=== PATIENT | female | born 1950 | race American Indian/Alaskan Native ===

== ENCOUNTER 2019-07-08 14:57 | Emergency (ER) | payer SELFPAY ==
[2019-07-08 15:06] VITALS: BP 148/91
== END 2019-07-08 16:00 | disposition left against medical advice (07) ==
LOC: ED 14:57
DX: R51 Headache (principal); Z53.21 Procedure and treatment not carried out due to patient leaving prior to being seen by health care provider

== ENCOUNTER 2020-09-13 18:43 | Emergency (ER) | payer MEDICARE ==
--- NOTE | 2020-09-13 20:02 | Event Note ---
ED Screening Note Date of service: 09/13/20 Time: 20:00 ED Screening Note: 70-year-old female patient with history of hypertension and diabetes presents emergency department complaints of nontraumatic frontal headache with associated dizziness, nausea, and vomiting for 4 days. States she has been compliant with her blood pressure medications. She is not anticoagulated. Took Tylenol for the headache with limited relief. BP 227/121 in triage; already took BP meds today. General: Awake, appropriately interactive, no acute distress. Neck: Supple. Full range of motion intact. Cardiovascular: Normal peripheral perfusion. Pulmonary: No respiratory distress. Patient is speaking normally without use of accessory muscles. Skin: No apparent rashes or lesions. Neurological: No facial asymmetry. Speech is clear. Follows commands. Patient is alert and oriented. Strength and sensation intact throughout. Musculoskeletal: Moves all four extremities spontaneously with normal range of motion. Psych: Cooperative. Appropriate mood and affect. Patient is not a candidate for clinical rule out using [place] [facility] rule; CT head obtained for further evaluation. I have greeted and performed a focused rapid initial assessment of this patient. A comprehensive ED assessment and evaluation of the patient, analysis of all test results, and completion of the medical decision-making process will be conducted by additional ED providers. This initial assessment/diagnostic orders/clinical plan/treatment(s) is/are subject to change based on patients health status, clinical progression and re-assessment. Further treatment and workup at subsequent clinical provider's discretion. Patient/guardian urged not to elope from the ED as their condition may be serious if not clinically assessed and managed.
--- NOTE | 2020-09-13 20:34 | XRay Report ---
CHEST 2 VIEWS INDICATION / CLINICAL INFORMATION: dizziness/nausea. COMPARISON: None available. FINDINGS: SUPPORT DEVICES: None. HEART / MEDIASTINUM: No significant abnormality. LUNGS / PLEURA: Clear lungs. No significant pleural effusion. No pneumothorax. ADDITIONAL FINDINGS: No significant additional findings. IMPRESSION: 1. No acute abnormality of the chest. Signer Name: Amadou Costa MD Signed: 09/13/2020 8:29 PM Workstation Name: [id number]
[2020-09-13 20:39] LABS: Basophils % (Auto) 0.3 % (0.0-1.8); Eosinophils # (Auto) 0.1 K/mm3 (0.0-0.4); Eosinophils % (Auto) 0.7 % (0.0-4.3); Hematocrit 36.9 % (30.3-42.9); Hemoglobin 11.9 gm/dl (10.1-14.3); Lymphocytes # (Auto) 2.6 K/mm3 (1.2-5.4); Lymphocytes % (Auto) 19.3 % (13.4-35.0); Mean Corpuscular HGB Conc 32 % (30-34); Mean Corpuscular Volume 89 fl (79-97); Monocytes # (Auto) 0.8 K/mm3 (0.0-0.8); Platelet Count 308 K/mm3 (140-440); Red Blood Count 4.16 M/mm3 (3.65-5.03); Red Cell Distribution Width 15.4 % (13.2-15.2)
[2020-09-13 20:51] LABS: Alanine Aminotransferase 8 units/L (7-56); BUN/Creatinine Ratio 14; Blood Urea Nitrogen 27 mg/dL (7-17); Calcium 8.9 mg/dL (8.4-10.2); Hemolysis Index 18
--- NOTE | 2020-09-13 21:04 | Cat Scan Report ---
CT HEAD WITHOUT CONTRAST INDICATION : HTN; headache + nausea + dizziness. TECHNIQUE: Axial, coronal and sagittal CT imaging was performed from the skull apex through the skul l base without contrast. All CT scans at this location are performed using CT dose reduction for ALA RA by means of automated exposure control. COMPARISON: None available. FINDINGS: PARENCHYMA: No mass, midline shift, hemorrhage, extraaxial collection or acute territorial infarctio n. There is mild generalized atrophy. Probable chronic microvascular ischemic changes are seen along the periventricular white matter. VENTRICLES: Symmetric and normal in size. SOFT TISSUES: No significant abnormality of the included soft tissues/orbits. BONES: No acute osseous abnormality. SINUSES: No significant abnormality. ADDITIONAL FINDINGS: None. IMPRESSION: 1. No acute intracranial abnormality. 2. Additional findings as above. Signer Name: Amadou Costa MD Signed: 09/13/2020 9:00 PM Workstation Name: [id number]
[2020-09-13] MEDS ORDERED: cloNIDine 0.1 MG TAB PO ONE (21:21)
--- NOTE | 2020-09-13 21:25 | Emergency Department Report ---
ED General Adult HPI - General Chief complaint: High BP Stated complaint: HIGH BLOOD PRESSURE Time Seen by Provider: 09/13/20 21:16 Source: patient Mode of arrival: Ambulatory Limitations: No Limitations - History of Present Illness Initial comments: Patient is 70 years old female with history of hypertension and chronic kidney disease. Patient presented to the ER complaining of headache for the last 4 days, nausea and vomiting. Patient denied any chest pain, shortness of breath. Patient denied any focal weakness numbness or tingling sensation. No bowel or bladder incontinence. -: days(s) - Related Data Allergies Allergy/AdvReac Type Severity Reaction Status Date / Time No Known Allergies Allergy Unverified 07/08/19 15:01 ED Review of Systems ROS: Stated complaint: HIGH BLOOD PRESSURE Other details as noted in HPI Comment: All other systems reviewed and negative Constitutional: denies: chills, fever Respiratory: denies: cough, shortness of breath, SOB with exertion Cardiovascular: denies: chest pain, palpitations Gastrointestinal: nausea, vomiting. denies: abdominal pain, diarrhea, constipation, hematemesis, melena, hematochezia Musculoskeletal: denies: back pain Neurological: denies: headache, weakness, numbness, paresthesias, confusion, a bnormal gait ED Past Medical Hx - Past Medical History Previous Medical History?: Yes Hx Hypertension: Yes Hx Diabetes: Yes - Surgical History Past Surgical History?: Yes Additional Surgical History: Brenton hand , Right leg and right shoulder - Social History Smoking Status: Current Every Day Smoker Substance Use Type: None ED Physical Exam - General Limitations: No Limitations General appearance: alert, in no apparent distress - Head Head exam: Present: atraumatic, normocephalic, normal inspection - Eye Eye exam: Present: normal appearance, PERRL - ENT ENT exam: Present: normal exam, normal orophraynx, mucous membranes moist - Neck Neck exam: Present: normal inspection, full ROM. Absent: tenderness, m eningismus - Respiratory Respiratory exam: Present: normal lung sounds bilaterally - Cardiovascular Cardiovascular Exam: Present: regular rate, normal rhythm, normal heart sounds - GI/Abdominal GI/Abdominal exam: Present: soft, normal bowel sounds. Absent: distended, tenderness, guarding, rebound, rigid, organomegaly, mass, bruit, pulsatile mass, hernia - Extremities Exam Extremities exam: Present: normal inspection, full ROM, normal capillary refill. Absent: pedal edema, calf tenderness - Back Exam Back exam: Present: normal inspection, full ROM. Absent: CVA tenderness (R), CVA tenderness (L) - Neurological Exam Neurological exam: Present: alert, oriented X3, CN II-XII intact, normal gait, reflexes normal. Absent: motor sensory deficit - Psychiatric Psychiatric exam: Present: normal mood - Skin Skin exam: Present: warm, intact, normal color ED Course Vital Signs 09/13/20 09/13/20 09/13/20 19:55 21:22 21:30 Temperature 99.1 F Pulse Rate 86 71 73 Respiratory 20 15 14 Rate Blood Pressure 227/121 187/92 O2 Sat by Pulse 97 97 98 Oximetry 09/13/20 09/13/20 09/13/20 21:46 22:00 22:16 Temperature Pulse Rate 66 70 73 Respiratory 18 16 15 Rate Blood Pressure 183/89 183/89 149/78 O2 Sat by Pulse 97 97 95 Oximetry 09/13/20 09/13/20 09/13/20 22:30 22:46 23:00 Temperature Pulse Rate 76 70 62 Respiratory 14 15 15 Rate Blood Pressure 149/78 144/82 144/82 O2 Sat by Pulse 95 95 97 Oximetry 09/13/20 09/13/20 09/13/20 23:16 23:30 23:45 Temperature Pulse Rate 68 71 Respiratory 17 17 Rate Blood Pressure 161/85 171/90 166/86 O2 Sat by Pulse 97 97 Oximetry 09/13/20 09/14/20 09/14/20 23:46 00:00 00:04 Temperature Pulse Rate 70 74 70 Respiratory 19 15 17 Rate Blood Pressure 166/86 166/86 160/78 O2 Sat by Pulse 97 98 98 Oximetry 09/14/20 09/14/20 00:16 00:30 Temperature Pulse Rate 70 72 Respiratory 19 14 Rate Blood Pressure 144/82 166/86 O2 Sat by Pulse 97 96 Oximetry ED Medical Decision Making - Lab Data Result diagrams: 09/13/20 20:12 09/13/20 20:12 - EKG Data -: EKG Interpreted by Ms EKG shows normal: sinus rhythm Rate: normal - EKG Data Interpretation: no acute changes - Radiology Data Radiology results: report reviewed - Medical Decision Making Patient is 70 years old female with history of hypertension and chronic kidney disease. Patient presented to the ER complaining of headache for the last 4 days, nausea and vomiting. Patient denied any chest pain, shortness of breath. Patient denied any focal weakness numbness or tingling sensation. No bowel or bladder incontinence. Patient received clonidine for her significantly elevated blood pressure. Patient stated that her headache is significantly improved. Patient denied any neck stiffness or neck pain. patient also received Zofran for nausea. Labs reviewed and showed slight elevated white blood cells of 13. CT brain, chest x- ray and CT abdomen pelvis is unremarkable. Urinalysis -2. Patient advised to follow-up with her primary care physician in the next 2 to 3 days and to return to the ER she develop any new symptoms. Critical care attestation.: If time is entered above; I have spent that time in minutes in the direct care of this critically ill patient, excluding procedure time. ED Disposition Clinical Impression: Acute headache, Acute nausea with nonbilious vomiting, Malignant hypertension Disposition: DC-01 TO HOME OR SELFCARE Is pt being admited?: No Condition: Stable Instructions: Hypertension (ED), Nausea and Vomiting, Adult, Hypertension, Adult Referrals: EULALIO LORENZO MD [Primary Care Provider] - 3-5 Days
[2020-09-13] MEDS ORDERED: ONDANSETRON 4 MG ODT TAB PO ONE (21:27)
--- NOTE | 2020-09-14 00:04 | Cat Scan Report ---
CT ABDOMEN AND PELVIS WITHOUT IV CONTRAST INDICATION: ABDOMINAL PAIN. COMPARISON: None available. TECHNIQUE: All CT scans at this facility use dose modulation, automated exposure control, iterative reconstructi on or weight based dosing, when appropriate, to reduce radiation dose to as low as reasonably achieva ble. FINDINGS: Lung Bases: No significant abnormality. Skeletal System: No acute abnormality. ABDOMEN: Liver: No significant abnormality. Gallbladder: No significant abnormality. Bile Ducts: No significant abnormality. Pancreas: No significant abnormality. Spleen: No significant abnormality. Adrenals: No significant abnormality. Right Kidney: No significant abnormality. Left Kidney: No significant abnormality. Incidental lateral cortex cyst. Upper GI tract: No significant abnormality. Lymph Nodes: No significant adenopathy. Aorta: No significant abnormality. Additional Findings: No significant abnormality. PELVIS: Colon: No acute abnormality. Diverticulosis is noted. Urinary Bladder and Distal Ureters: No significant abnormality. Appendix: No significant abnormality. Lymph Nodes: No significant adenopathy. Additional Findings: None. IMPRESSION: 1. Within the limitations of non contrast technique, no acute process in the abdomen or pelvis. Signer Name: Henry Garcia MD Signed: 09/13/2020 11:59 PM Workstation Name: [id number]
[2020-09-14 00:12] LABS: Bilirubin,Urine NEG (Negative); Blood,Urine NEG (Negative); Color,Urine Yellow (Yellow); Urobilinogen,Urine < 2.0 mg/dL (<2.0)
[2020-09-14 01:50] VITALS: BP 137/82
== END 2020-09-14 01:23 | disposition home or self-care (01) ==
LOC: ED 18:43
DX: R51.9 Headache, unspecified (principal); R11.2 Nausea with vomiting, unspecified; I10 Essential (primary) hypertension; R10.9 Unspecified abdominal pain; E11.9 Type 2 diabetes mellitus without complications; F17.200 Nicotine dependence, unspecified, uncomplicated; Z98.890 Other specified postprocedural states
CPT/HCPCS: 36415; 70450; 71046; 74176; 80053; 81001; 83690; 83735; 84484; 85025; 93005; Q0162

== ENCOUNTER 2021-01-06 11:45 | Emergency (ER) | payer MEDICARE ==
--- NOTE | 2021-01-06 17:04 | Emergency Department Report ---
History of Present Illness - General Chief Complaint: Overdose Stated Complaint: POSS OVERDOSE Time Seen by Provider: 01/06/21 16:40 Source: patient Mode of arrival: Stretcher Limitations: No Limitations - History of Present Illness Initial Comments: 70-year-old female, history of diabetes, pretension, presents to ED for accidental overdose. Patient states she took all of her medications at around 10 AM. Patient states she forgot that she took her medications and took all of them again right afterward. Patient states she called EMS because she began to feel dizzy and lightheaded and nauseated. Triage nurse called poison control. States the only medication of concern is the glimepiride. Patient will need every hour Accu-Cheks. 12-hour observation from ingestion is warranted per poison control. Patient given a snack bag. Patient's medication list includes: Glimepiride, fluoxetine, gabapentin, amlodipine, acarbose, lisinopril, furosemide, trazodone, hydralazine, aspirin, quetiapine MD Complaint: accidental overdose -: hour(s) (7) Context: Accidental Overdose: medication error Associated Symptoms: dizziness, nausea/vomiting Treatments Prior to Arrival: none - Related Data Previous Rx's Medication Instructions Recorded Last Taken Type Ondansetron [Zofran Odt] 4 mg PO Q8HR PRN #14 tab.rapdis 09/14/20 Unknown Rx traMADoL [Ultram 50 MG tab] 50 mg PO Q4HR PRN #14 tablet 09/14/20 Unknown Rx Allergies Allergy/AdvReac Type Severity Reaction Status Date / Time No Known Allergies Allergy Unverified 07/08/19 15:01 ED Review of Systems ROS: Stated complaint: POSS OVERDOSE Other details as noted in HPI Comment: All other systems reviewed and negative Respiratory: denies: shortness of breath Gastrointestinal: nausea. denies: abdominal pain Neurological: vertigo ED Past Medical Hx - Past Medical History Previous Medical History?: Yes Hx Hypertension: Yes Hx Diabetes: Yes - Surgical History Additional Surgical History: Brenton hand , Right leg and right shoulder - Social History Smoking Status: Current Every Day Smoker Substance Use Type: None - Medications Home Medications: Home Medications Medication Instructions Recorded Confirmed Last Taken Type Ondansetron [Zofran Odt] 4 mg PO Q8HR PRN #14 tab.rapdis 09/14/20 Unknown Rx traMADoL [Ultram 50 MG tab] 50 mg PO Q4HR PRN #14 tablet 09/14/20 Unknown Rx ED Physical Exam - General Limitations: No Limitations General appearance: alert, in no apparent distress - Head Head exam: Present: atraumatic, normocephalic - Eye Eye exam: Present: normal appearance, PERRL, EOMI - ENT ENT exam: Present: mucous membranes moist - Neck Neck exam: Present: normal inspection - Respiratory Respiratory exam: Present: normal lung sounds bilaterally. Absent: respiratory distress - Cardiovascular Cardiovascular Exam: Present: regular rate, normal rhythm - GI/Abdominal GI/Abdominal exam: Present: soft. Absent: distended, tenderness - Extremities Exam Extremities exam: Present: normal inspection - Neurological Exam Neurological exam: Present: alert, oriented X3, CN II-XII intact. Absent: motor sensory deficit - Psychiatric Psychiatric exam: Present: normal affect, normal mood - Skin Skin exam: Present: warm, dry, intact, normal color ED Course Vital Signs 01/06/21 01/06/21 01/06/21 12:39 16:07 21:39 Temperature 98 F 97.9 F Pulse Rate 119 H 106 H 91 H Respiratory 18 16 18 Rate Blood Pressure 137/74 Blood Pressure 138/68 130/59 [Right] O2 Sat by Pulse 97 96 96 Oximetry ED Medical Decision Making - Medical Decision Making Patient presented to ED after accidentally taking her medications twice this morning. Patient reports she experienced some dizziness and nausea after work. Poison control was contacted. Patient has received every hour Accu-Cheks. Glucose has remained within normal limits. Patient was also given 1 L bolus of IV fluids. Vital signs have been stable. Patient is feeling much better and will be discharged at this time. Outpatient follow-up advised, return precautions given. - Differential Diagnosis Hyperglycemia, hypotension Critical care attestation.: If time is entered above; I have spent that time in minutes in the direct care of this critically ill patient, excluding procedure time. ED Disposition Clinical Impression: Accidental overdose Disposition: DC-01 TO HOME OR SELFCARE Is pt being admited?: No Condition: Stable Instructions: Accidental Drug Poisoning, Adult Referrals: PRIMARY CARE, [Primary Care Provider] - 3-5 Days Time of Disposition: 22:19
[2021-01-06] MEDS ORDERED: SODIUM CHLORIDE 0.9% 1000 ML 1,000 ML IV ONE (17:07)
[2021-01-06 22:14] VITALS: BP 137/74
== END 2021-01-06 21:47 | disposition home or self-care (01) ==
LOC: ED 11:45
DX: T50.991A Poisoning by other drugs, medicaments and biological substances, accidental (unintentional), initial encounter (principal); I10 Essential (primary) hypertension; E11.8 Type 2 diabetes mellitus with unspecified complications; Z98.890 Other specified postprocedural states; F17.200 Nicotine dependence, unspecified, uncomplicated; Y92.89 Other specified places as the place of occurrence of the external cause
CPT/HCPCS: 82962; 96360; 99284; J7030

== ENCOUNTER 2021-07-07 08:38 | Inpatient (IN) | payer MEDICARE ==
[2021-07-07] MEDS ORDERED: cloNIDine 0.2 MG TAB PO ONE (08:59)
--- NOTE | 2021-07-07 09:02 | Emergency Department Report ---
HPI - General Chief Complaint: Altered Mental Status Time Seen by Provider: 07/07/21 08:46 - HPI HPI: Room 5 Patient 71-year-old female present with a chief complaint of altered mental state. Per EMS family report the patient has been altered since yesterday. They report the patient is normally walkie-talkie but patient is currently nonverbal. Is believed the patient fell out of bed today and was found by family and subsequently 911 was called. EMS arrived to find the patient nonverbal. Patient makes eye contact but does not answer questions. ED Past Medical Hx - Past Medical History Hx Hypertension: Yes Hx Diabetes: Yes Hx Renal Disease: Yes (Chronic renal insufficiency) Hx Psychiatric Treatment: Yes (Anxiety, depression) - Surgical History Past Surgical History?: No Additional Surgical History: Brenton hand , Right leg and right shoulder - Family History Family history: no significant - Social History Smoking Status: Unknown if ever smoked Substance Use Type: None - Medications Home Medications: Home Medications Medication Instructions Recorded Confirmed Last Taken Type Ondansetron [Zofran Odt] 4 mg PO Q8HR PRN #14 tab.rapdis 09/14/20 Unknown Rx traMADoL [Ultram 50 MG tab] 50 mg PO Q4HR PRN #14 tablet 09/14/20 Unknown Rx ED Review of Systems ROS: Stated complaint: ALTERED MENTAL STATUS Other details as noted in HPI Comment: Unobtainable due to pts medical conditions Physical Exam - Physical Exam Vital Signs: Vital Signs 07/07/21 08:40 Temperature 95 F L Pulse Rate 89 Respiratory 16 Rate Blood Pressure 193/116 [Right] O2 Sat by Pulse 97 Oximetry Physical Exam: GENERAL: The patient is well-developed well-nourished female lying on stretcher not appearing to be in acute distress. [] HEENT: Normocephalic. Atraumatic. Extraocular motions are intact. Patient has moist mucous membranes. NECK: Supple. Trachea midline CHEST/LUNGS: Clear to auscultation. There is no respiratory distress noted. HEART/CARDIOVASCULAR: Regular. There is no tachycardia. There is no gallop rub or murmur. ABDOMEN: Abdomen is soft, nontender. Patient has normal bowel sounds. There is no abdominal distention. SKIN: There is no rash. There is no edema. There is no diaphoresis. NEURO: The patient is awake, alert and makes eye contact but does not answer questions. Patient moves all 4 extremities well. The patient is not cooperative with neurologic exam. MUSCULOSKELETAL: There is no evidence of acute injury. ED Course Vital Signs 07/07/21 08:40 Temperature 95 F L Pulse Rate 89 Respiratory 16 Rate Blood Pressure 193/116 [Right] O2 Sat by Pulse 97 Oximetry ED Medical Decision Making - Lab Data Result diagrams: 07/07/21 09:03 07/07/21 09:03 Laboratory Tests 07/07/21 07/07/21 07/07/21 09:03 09:03 09:03 WBC 14.0 H RBC 4.48 Hgb 12.3 Hct 39.3 MCV 88 MCH 27 L MCHC 31 RDW 15.5 H Plt Count 334 Lymph % (Auto) 10.9 L [place] % (Auto) 6.7 Eos % (Auto) 0.3 Baso % (Auto) 0.1 Lymph # (Auto) 1.5 [place] # (Auto) 0.9 H Eos # (Auto) 0.0 Baso # (Auto) 0.0 Seg Neutrophils % 82.0 H Seg Neutrophils # 11.4 H VBG pH Sodium 139 Potassium 4.8 Chloride 104.7 Carbon Dioxide 13 L Anion Gap 26 BUN 36 H Creatinine 3.0 H Estimated GFR 19 BUN/Creatinine Ratio 12 Glucose 258 H Calcium 9.5 Total Bilirubin < 0.20 AST 10 ALT 7 Alkaline Phosphatase 78 Ammonia 22.0 L Total Creatine Kinase 100 CK-MB (CK-2) 2.9 CK-MB (CK-2) Rel Index 2.9 Troponin T < 0.010 Total Protein 7.4 Albumin 3.9 Albumin/Globulin Ratio 1.1 TSH Free T4 Plasma/Serum Alcohol 07/07/21 07/07/21 07/07/21 09:03 09:03 09:03 WBC RBC Hgb Hct MCV MCH MCHC RDW Plt Count Lymph % (Auto) [place] % (Auto) Eos % (Auto) Baso % (Auto) Lymph # (Auto) [place] # (Auto) Eos # (Auto) Baso # (Auto) Seg Neutrophils % Seg Neutrophils # VBG pH 7.276 L Sodium Potassium Chloride Carbon Dioxide Anion Gap BUN Creatinine Estimated GFR BUN/Creatinine Ratio Glucose Calcium Total Bilirubin AST ALT Alkaline Phosphatase Ammonia Total Creatine Kinase CK-MB (CK-2) CK-MB (CK-2) Rel Index Troponin T Total Protein Albumin Albumin/Globulin Ratio TSH 1.880 Free T4 1.31 Plasma/Serum Alcohol < 0.01 - EKG Data -: EKG Interpreted by Me EKG shows normal: sinus rhythm Rate: normal - EKG Data When compared to previous EKG there are: previous EKG unavailable Interpretation: nonspecific ST-T wave berry - Radiology Data Radiology results: report reviewed (CT head), image reviewed (CT head) [facility] [address] [place] [address] Cat Scan Report Signed Patient: JAZMÍN SEO MR#: [id number] : 1950 Acct:[id number] Age/Sex: 71 / F ADM Date: 07/07/21 Loc: ED Att ending Dr: Ordering Physician: FLORI GUTIERREZ MD Date of Service: 07/07/21 Procedure(s): CT head/brain wo con Accession Number(s): [id number] cc: FLORI GUTIERREZ MD CT head/brain wo con INDICATION: Altered mental status. TECHNIQUE: Routine CT head. All CT scans at this location are performed using CT dose reduction for ALARA by means of automated exposure control. COMPARISON: 09/13/2020. FINDINGS: Image quality is degraded by motion. Intracranial: [place]-white matter differentiation is maintained. No intracranial hemorrhage. No extra axial collection. No hydrocephalus. No herniation. Unchanged hypoattenuation seen within the right periatrial white matter. Sinuses: Paranasal sinuses and mastoid air cells are essentially clear. Orbits: Globes are intact. Calvarium: No acute fracture. IMPRESSION: 1. Image quality is degraded by motion. No acute intracranial abnormality identified. Signer Name: Edgar Moralez MD Signed: 07/07/2021 12:03 PM Workstation Name: [id number] Transcribed By: CS Dictated By: Edgar Moralez MD Electronically Authenticated By: Edgar Moralez MD Signed Date/Time: 07/07/21 1203 DD/ 1200 TD/TT: Print Cancel - Differential Diagnosis Altered mental status Critical care attestation.: If time is entered above; I have spent that time in minutes in the direct care of this critically ill patient, excluding procedure time. ED Disposition Clinical Impression: Altered mental status, Acute on chronic renal insufficiency, DKA (diabetic ketoacidosis) Disposition: ADMITTED INPATIENT Is pt being admited?: Yes Does the pt Need Aspirin: No Condition: Fair Instructions: Diabetic Ketoacidosis (ED) Referrals: PRIMARY CARE,MD [Primary Care Provider] - 3-5 Days Time of Disposition: 12:19 (Hospitalist called (Dr. Rodríguez))
[2021-07-07] MEDS ORDERED: hydrALAZINE 20 MG/1 ML INJ IV ONE (09:30)
[2021-07-07 09:53] LABS: Alanine Aminotransferase 7 units/L (7-56); Albumin 3.9 g/dL (3.9-5); BUN/Creatinine Ratio 12; Blood Urea Nitrogen 36 mg/dL (7-17); Calcium 9.5 mg/dL (8.4-10.2); Creatine Kinase MB 2.9 ng/mL (0.0-4.0); Hemolysis Index 5
[2021-07-07 10:03] LABS: Free T4 (Free Thyroxine) 1.31 ng/dL (0.76-1.46)
[2021-07-07 10:06] LABS: Basophils % (Auto) 0.1 % (0.0-1.8); Eosinophils % (Auto) 0.3 % (0.0-4.3); Hematocrit 39.3 % (30.3-42.9); Hemoglobin 12.3 gm/dl (10.1-14.3); Lymphocytes # (Auto) 1.5 K/mm3 (1.2-5.4); Lymphocytes % (Auto) 10.9 % (13.4-35.0); Mean Corpuscular HGB Conc 31 % (30-34); Mean Corpuscular Volume 88 fl (79-97); Monocytes # (Auto) 0.9 K/mm3 (0.0-0.8); Monocytes % (Auto) 6.7 % (0.0-7.3); Platelet Count 334 K/mm3 (140-440); Red Blood Count 4.48 M/mm3 (3.65-5.03); Red Cell Distribution Width 15.5 % (13.2-15.2)
[2021-07-07] MEDS ORDERED: LORazepam 2 MG/ML VIAL IV ONE (10:12)
[2021-07-07] MEDS ORDERED: KETAMINE 500 MG/5 ML VIAL MDV IV ONE (11:14)
--- NOTE | 2021-07-07 12:07 | Cat Scan Report ---
CT head/brain wo con INDICATION: Altered mental status. TECHNIQUE: Routine CT head. All CT scans at this location are performed using CT dose reduction for A ANTON by means of automated exposure control. COMPARISON: 09/13/2020. FINDINGS: Image quality is degraded by motion. Intracranial: [place]-white matter differentiation is maintained. No intracranial hemorrhage. No extra a xial collection. No hydrocephalus. No herniation. Unchanged hypoattenuation seen within the right per iatrial white matter. Sinuses: Paranasal sinuses and mastoid air cells are essentially clear. Orbits: Globes are intact. Calvarium: No acute fracture. IMPRESSION: 1. Image quality is degraded by motion. No acute intracranial abnormality identified. Signer Name: Edgar Moralez MD Signed: 07/07/2021 12:03 PM Workstation Name: [id number]
[2021-07-07] MEDS ORDERED: SODIUM CHLORIDE 0.9% 1000 ML 1,000 ML IV ONE (12:18)
--- NOTE | 2021-07-07 12:21 | History and Physical Report ---
History of Present Illness Chief complaint: She is not acting like herself History of present illness: 71 YO Female with HTN, DM, CKD, MDD, DARIEL, OA, Vascular Dementia, Cerebral Atherosclerosis presents to ED for evaluation. Patient has diminished cognition as is nonverbal and unable to provide history. Patient history taken from EMS staff, ED staff, as well as the patient family who was made available by telephone interview. As per family the patient has experienced increased confusion and tangential thinking over the past several weeks with persistently worsening symptoms over the same timeframe. Patient was found down sitting on the floor beside her bed today. EMS was notified and upon arrival the patient was found to be in distress and subsequent transported to [facility] for further care and evaluation of the aforementioned symptoms. The patient was seen and evaluated in the emergency department. All lab and imaging studies reviewed. Patient found to have systemic inflammatory response syndrome secondary to pneumonia, acute kidney injury, metabolic encephalopathy, and uncontrolled diabetes mellitus. Patient admitted to medical floor and initiated on pneumonia protocol as well as coronavirus protocol due to increased risk of worsening symptoms. No reports of fever, chills, chest pain, palpitation, productive cough, skin rash, recent contact, or known exposure to COVID-19. Patient was vaccinated in August against COVID-19 but has not undergone booster therapy. No prior mission for review. No medication listed at time of admission for reconciliation. Advanced care planning conducted in ED. Past History Past Medical History: diabetes, hypertension, renal failure Past Surgical History: Other (Hand, right leg, right shoulder) Social history: single. denies: smoking, alcohol abuse, prescription drug abuse Family history: diabetes, hypertension Medications and Allergies Allergies Allergy/AdvReac Type Severity Reaction Status Date / Time No Known Allergies Allergy Unverified 07/08/19 15:01 Home Medications Medication Instructions Recorded Confirmed Last Taken Type Ondansetron [Zofran Odt] 4 mg PO Q8HR PRN #14 tab.rapdis 09/14/20 07/07/21 Unknown Rx traMADoL [Ultram 50 MG tab] 50 mg PO Q4HR PRN #14 tablet 09/14/20 07/07/21 Unknown Rx Baclofen [Lioresal] 5 mg PO TID 07/07/21 07/07/21 Unknown History Duloxetine HCl [Drizalma Sprinkle] 30 mg PO QAM 07/07/21 07/07/21 Unknown History FLUoxetine [PROzac] 20 mg PO QDAY 07/07/21 07/07/21 Unknown History Famotidine [Acid-Pep] 20 mg PO QDAY 07/07/21 07/07/21 Unknown History Glimepiride [Amaryl] 4 mg PO QAM 07/07/21 07/07/21 Unknown History Metoprolol Tartrate 25 mg PO BID 07/07/21 07/07/21 Unknown History Mirtazapine [Remeron 45mg TAB] 45 mg PO QPM 07/07/21 07/07/21 Unknown History Pregabalin [Lyrica] 100 mg PO TID 07/07/21 07/07/21 Unknown History QUEtiapine [SEROquel] 800 mg PO QPM 07/07/21 07/07/21 Unknown History Tizanidine HCl 2 mg PO QDAY PRN 07/07/21 07/07/21 Unknown History Trazodone HCl [traZODone] 300 mg PO QPM 07/07/21 07/07/21 Unknown History amLODIPine/ATORVASTATIN 1 tab PO QDAY 07/07/21 07/07/21 Unknown History [Amlodipine-Atorvast 2.5-20 mg] hydrALAZINE 50 mg PO TID 07/07/21 07/07/21 Unknown History lisinopriL [Lisinopril] 10 mg PO QDAY 07/07/21 07/07/21 Unknown History Active Meds: Active Medications Sodium Chloride (Nacl 0.9% 1000 Ml) 1,000 mls @ 999 mls/hr IV ONCE ONE Stop: 07/07/21 13:18 Review of Systems ROS unobtainable: due to mental status Exam - Constitutional Vitals: Temp Pulse Resp BP Pulse Ox 98.6 F 97 H 20 173/88 98 07/07/21 12:17 07/07/21 12:02 07/07/21 12:02 07/07/21 12:02 07/07/21 12:02 General appearance: Present: mild distress - EENT Eyes: Present: PERRL ENT: hearing intact, clear oral mucosa - Neck Neck: Present: supple, normal ROM - Respiratory Respiratory effort: normal Respiratory: bilateral: CTA - Cardiovascular Heart Sounds: Present: S1 & S2. Absent: rub, click - Extremities Extremities: pulses symmetrical, No edema Peripheral Pulses: within normal limits - Abdominal General gastrointestinal: Present: soft, non-tender, non-distended, normal bowel sounds Female genitourinary: Present: normal - Integumentary Integumentary: Present: clear, warm, dry - Musculoskeletal Musculoskeletal: gait normal, strength equal bilaterally - Psychiatric Psychiatric: appropriate mood/affect, intact judgment & insight - Neurologic Neurologic: CNII-XII intact, moves all extremities HEART Score - HEART Score Troponin: Troponin T < 0.010 ng/mL (0.00-0.029) 07/07/21 09:03 Results - Labs CBC & Chem 7: 07/07/21 09:03 07/07/21 09:03 Labs: Abnormal lab results 07/07/21 07/07/21 07/07/21 Range/Units 09:03 09:03 09:03 WBC 14.0 H (4.5-11.0) K/mm3 MCH 27 L (28-32) pg RDW 15.5 H (13.2-15.2) % Lymph % (Auto) 10.9 L (13.4-35.0) % [place] # (Auto) 0.9 H (0.0-0.8) K/mm3 Seg Neutrophils % 82.0 H (40.0-70.0) % Seg Neutrophils # 11.4 H (1.8-7.7) K/mm3 VBG pH (7.320-7.420) Carbon Dioxide 13 L (22-30) mmol/L BUN 36 H (7-17) mg/dL Creatinine 3.0 H (0.6-1.2) mg/dL Glucose 258 H (65-100) mg/dL Ammonia 22.0 L (25-60) umol/L 07/07/21 Range/Units 09:03 WBC (4.5-11.0) K/mm3 MCH (28-32) pg RDW (13.2-15.2) % Lymph % (Auto) (13.4-35.0) % [place] # (Auto) (0.0-0.8) K/mm3 Seg Neutrophils % (40.0-70.0) % Seg Neutrophils # (1.8-7.7) K/mm3 VBG pH 7.276 L (7.320-7.420) Carbon Dioxide (22-30) mmol/L BUN (7-17) mg/dL Creatinine (0.6-1.2) mg/dL Glucose (65-100) mg/dL Ammonia (25-60) umol/L Assessment and Plan - Patient Problems (1) SIRS (systemic inflammatory response syndrome) Current Visit: Yes Status: Acute Plan to address problem: CBC, CMP, IV antibiotic therapy, repeat CBC in a.m. (2) Pneumonia Current Visit: Yes Status: Suspected Plan to address problem: CBC, CMP, chest x-ray, supplemental oxygen, pulse oximetry, (3) Acute kidney injury (CARLOS) with acute tubular necrosis (ATN) Current Visit: Yes Status: Acute Plan to address problem: IV fluid resuscitation therapy, BMP, repeat BMP in a.m. to monitor serum creatinine. (4) Uncontrolled diabetes mellitus Current Visit: Yes Status: Acute Plan to address problem: Consistent carbohydrate diet, Accu-Chek, insulin protocol, IV fluid resuscit ation therapy, hypoglycemia protocol. (5) Accelerated hypertension Current Visit: Yes Status: Acute Plan to address problem: Monitor blood pressure every shift, continue medical management. (6) Vascular dementia with behavioral disturbance Current Visit: Yes Status: Acute Plan to address problem: Verbal prompting, verbal redirection, benzodiazepine therapy as clinically indicated. (7) Cerebral atherosclerosis Current Visit: Yes Status: Acute Plan to address problem: Risk factor reduction, antiplatelet therapy as clinically indicated. (8) Suspected 2019 novel coronavirus infection Current Visit: Yes Status: Acute Plan to address problem: Coronavirus protocol: IV antibiotic therapy, supplemental oxygen, pulse oximetry, vitamin C therapy, vitamin D therapy, zinc therapy, prophylactic anticoagulation. (9) COVID-19 vaccination not done Current Visit: Yes Status: Acute Plan to address problem: Patient is overdue for COVID-19 booster (10) DVT prophylaxis Current Visit: Yes Status: Acute Plan to address problem: SCD to bilateral lower extremities while in bed (11) Advance care planning Current Visit: Yes Status: Acute Plan to address problem: Disease education conducted, care plan discussed, prognosis discussed, diagnosis discussed, patient is full code, +30 minutes.
[2021-07-07 12:40] LABS: Bilirubin,Urine NEG (Negative); Blood,Urine NEG (Negative); Color,Urine Yellow (Yellow); Urobilinogen,Urine < 2.0 mg/dL (<2.0)
[2021-07-07 12:43] LABS: Protein,Urine >500 mg/dL (Negative)
[2021-07-07] MEDS ORDERED: ALBUTEROL 2.5 MG/3 ML NEBU IH PRN (12:43)
[2021-07-07] MEDS ORDERED: ACETAMINOPHEN 325 MG TAB PO PRN (12:43)
[2021-07-07] MEDS ORDERED: ONDANSETRON 4 MG/2 ML INJ IV PRN (12:43)
[2021-07-07] MEDS ORDERED: oxyCODONE /ACETAMINOPHEN 5-325MG TAB PO PRN (12:43)
[2021-07-07] MEDS ORDERED: HYDROmorphone 1 MG/1 ML INJ IV PRN (12:43)
[2021-07-07 12:44] LABS: Amphetamine Screen,Urine Negative; Benzodiazepines Screen,Urine Negative; Cannabinoid Screen,Urine Negative; Cocaine Screen,Urine Negative; Methadone Screen,Urine Negative; Opiate Screen,Urine Negative
[2021-07-07] MEDS ORDERED: SODIUM CHLORIDE 0.9% 1000 ML 1,000 ML IV SCH (12:45)
--- NOTE | 2021-07-07 13:00 | XRay Report ---
CHEST 1 VIEW 07/07/2021 12:41 PM INDICATION / CLINICAL INFORMATION: cough. COMPARISON: 09/13/2020 FINDINGS: SUPPORT DEVICES: None. HEART / MEDIASTINUM: No significant abnormality. LUNGS / PLEURA: No significant pulmonary or pleural abnormality. No pneumothorax. ADDITIONAL FINDINGS: No significant additional findings. IMPRESSION: 1. No acute findings. Signer Name: Carlos Cunningham MD Signed: 07/07/2021 12:55 PM Workstation Name: [email or web address]
[2021-07-07 13:39] LABS: INR 0.94 (0.87-1.13)
[2021-07-07 13:40] LABS: Partial Thromboplastin Time 28.3 Sec. (24.2-36.6)
[2021-07-07] MEDS ORDERED: DEXTROSE 50% IN WATER (25GM) 50 ML SYRINGE IV PRN (19:47)
[2021-07-07] MEDS ORDERED: DEXTROSE 10% *Hypoglycemia IV PRN (19:51)
[2021-07-07] MEDS ORDERED: NON-FORMULARY EACH (Hydralazine Tablet) PO SCH (20:00)
[2021-07-07] MEDS ORDERED: NON-FORMULARY EACH (Pregabalin [Lyrica] 100 MG Capsule) PO SCH (20:00)
[2021-07-07] MEDS ORDERED: INSULIN LISPRO 100 UNIT/ML SUB-Q ONE (20:52)
[2021-07-07] MEDS ORDERED: METOPROLOL TARTRATE PO SCH (22:00)
[2021-07-07] MEDS ORDERED: METOPROLOL TARTRATE 25 MG TAB PO SCH (22:00)
[2021-07-07] MEDS: MIRTAZAPINE 15 MG TAB PO SCH (22:51)
[2021-07-07] MEDS: traZODone 100 MG TAB PO SCH (22:51)
[2021-07-07] MEDS: hydrALAZINE 25 MG TAB PO SCH (22:52)
[2021-07-07] MEDS: BACLOFEN 10 MG TAB PO SCH (22:52)
[2021-07-08] MEDS: PREGABALIN 50 MG CAP PO SCH ×4 (01:18→21:19)
[2021-07-08] MEDS: hydrALAZINE 25 MG TAB PO SCH ×3 (05:58→21:20)
[2021-07-08] MEDS: INSULIN LISPRO 100 UNIT/ML SUB-Q SCH ×3 (06:02→23:01)
[2021-07-08 07:13] LABS: Basophils % (Auto) 0.1 % (0.0-1.8); Eosinophils % (Auto) 0.1 % (0.0-4.3); Hematocrit 36.9 % (30.3-42.9); Hemoglobin 11.4 gm/dl (10.1-14.3); Lymphocytes # (Auto) 1.2 K/mm3 (1.2-5.4); Lymphocytes % (Auto) 9.9 % (13.4-35.0); Mean Corpuscular HGB Conc 31 % (30-34); Mean Corpuscular Volume 87 fl (79-97); Platelet Count 289 K/mm3 (140-440); Red Blood Count 4.25 M/mm3 (3.65-5.03); Red Cell Distribution Width 15.5 % (13.2-15.2)
[2021-07-08 07:29] LABS: Calcium 9.2 mg/dL (8.4-10.2)
[2021-07-08] MEDS ORDERED: ATORVASTATIN PO SCH ×2 (10:00)
[2021-07-08] MEDS ORDERED: AMLODIPINE PO SCH ×2 (10:00)
[2021-07-08] MEDS ORDERED: DULOXETINE HCL 30 MG PO SCH (10:00)
[2021-07-08] MEDS ORDERED: DULoxetine 30 MG CAP PO SCH (10:00)
[2021-07-08] MEDS ORDERED: [UNRECOGNIZED DRUG - OTHER] PO SCH (10:00)
--- NOTE | 2021-07-08 10:20 | Electrocardiograph Report ---
[facility] Test Date: 2021-07-07 Test Time: 11:37:25 Pat Name: JAZMÍN SEO Department: Room: A354 Gender: F [employer] Apprentice: taiwo : 1950 Requested By: FLORI GUTIERREZ Order Number: [id number] Reading MD: Triston Elizabeth Measurements Intervals [place] Rate: 103 P: 73 [place]: 177 QRS: 38 QRSD: 99 T: 72 QT: 350 QTc: 458 Interpretive Statements Sinus tachycardia Biatrial enlargement Compared to ECG 09/13/2020 20:09:52 Sinus rate has increased Electronically Signed On 07-08-2021 10:20:08 EST by Triston Elizabeth
--- NOTE | 2021-07-08 12:23 | Consultation ---
History of Present Illness - Reason for Consult Consult date: 07/08/21 Reason for consult: psychosis - Chief Complaint Chief complaint: She is not acting like herself - History of Present Psychiatric Illness The patient was seen today. She is a 71y/o female patient who presented to the ER for AMS. During my evaluation of the patient, she finally responds after calling her name several times. The patient says "huh?" when she responds. She moves about in between me awakening her but drifts back off. The patient is confused. She has poor insight. She says "no" to every question I ask her. The nurse caring for the patient says they haven't been able to get anything out of the patient. She says she appears to be suffering from psychosis. The nurse says she constantly looks around if she is suspicious or seeing someone in the room. PAST PSYCHIATRIC HISTORY: Unable to obtain PAST MEDICAL HISTORY: None reported Family Psychiatric History: None reported or documented SOCIAL HISTORY Unable to obtain REVIEW OF SYSTEMS Unable to obtain MENTAL STATUS EXAMINATION Unable to obtain Assessment (1) Dementia with Behavioral Disturbances Current Visit: Yes Status: Acute Treatment Plan Risperidone 0.25mg po BID Medical: Per primary Sitter: Refer to primary Disposition: Recommend acute psychiatric inpatient treatment. The patient may transfer to [facility] once medically clear and negative Covid. Will follow. Thanks. Case staffed with Dr. Elkins. Medications and Allergies Allergies Allergy/AdvReac Type Severity Reaction Status Date / Time No Known Allergies Allergy Verified 07/08/21 09:14 Home Medications Medication Instructions Recorded Confirmed Last Taken Type Ondansetron [Zofran Odt] 4 mg PO Q8HR PRN #14 tab.rapdis 09/14/20 07/07/21 4 D ays Ago Rx ~07/04/21 traMADoL [Ultram 50 MG tab] 50 mg PO Q4HR PRN #14 tablet 09/14/20 07/07/21 4 Days Ago Rx ~07/04/21 Baclofen [Lioresal] 5 mg PO TID 07/07/21 07/07/21 4 Days Ago History ~07/04/21 Duloxetine HCl [Drizalma Sprinkle] 30 mg PO QAM 07/07/21 07/07/21 4 Days Ago History ~07/04/21 FLUoxetine [PROzac] 20 mg PO QAM 07/07/21 07/08/21 4 Days Ago History ~07/04/21 Famotidine [Acid-Pep] 20 mg PO QDAY 07/07/21 07/07/21 4 Days Ago History ~07/04/21 Pregabalin [Lyrica] 100 mg PO TID 07/07/21 07/07/21 4 Days Ago History ~07/04/21 Tizanidine HCl 2 mg PO QDAY PRN 07/07/21 07/07/21 4 Days Ago History ~07/04/21 lisinopriL [Lisinopril] 10 mg PO QDAY 07/07/21 07/07/21 4 Days Ago History ~07/04/21 Aspirin EC [Halfprin EC] 81 mg PO QDAY 07/08/21 07/08/21 4 Days Ago History ~07/04/21 Hydralazine HCl 50 mg PO TID 07/08/21 07/08/21 4 Days Ago History ~07/04/21 Insulin Aspart Protam & Aspart 0 units SQ QAM 07/08/21 07/08/21 6 Days Ago History [NovoLOG Mix 70-30 Flexpen] ~07/02/21 Metoprolol [Lopressor] 25 mg PO QDAY 07/08/21 07/08/21 4 Days Ago History ~07/04/21 Quetiapine Fumarate [SEROquel] 800 mg PO QHS 07/08/21 07/08/21 4 Days Ago History ~07/04/21 Trazodone HCl 300 mg PO QHS 07/08/21 07/08/21 4 Days Ago History ~07/04/21 amLODIPine/ATORVASTATIN [Caduet 1 tab PO QDAY 07/08/21 07/08/21 4 Days Ago History 10-20 mg] ~07/04/21 Active Meds: Active Medications Acetaminophen (Acetaminophen 325 Mg Tab) 650 mg PO Q4H PRN PRN Reason: Pain MILD(1-3)/Fever >100.5/AVINA Albuterol (Albuterol 2.5 Mg/3 Ml Nebu) 2.5 mg IH Q4HRT PRN PRN Reason: Shortness Of Breath Amlodipine Besylate (Amlodipine 5 Mg Tab) 2.5 mg PO QDAY [facility] Atorvastatin Calcium (Atorvastatin 20 Mg Tab) 20 mg PO QHS [facility] Last Admin: 07/07/21 22:55 Dose: 20 mg Baclofen (Baclofen 10 Mg Tab) 5 mg PO TID [facility] Last Admin: 07/07/21 22:52 Dose: 5 mg Dextrose (Dextrose 50% In Water (25gm) 50 Ml Syringe) 50 ml IV Q30MIN PRN; Protocol PRN Reason: Hypoglycemia Dextrose (Dextrose 10% *Hypoglycemia) 0 ml IV PRN PRN PRN Reason: Hypoglycemia Duloxetine HCl (Duloxetine 30 Mg Cap) 30 mg PO QDAY [facility] Famotidine (Famotidine 20 Mg Tab) 20 mg PO QDAY [facility] Fluoxetine HCl (Fluoxetine 20 Mg Cap) 20 mg PO QDAY [facility] Hydralazine HCl (Hydralazine 25 Mg Tab) 50 mg PO Q8HR [facility] Last Admin: 07/08/21 05:58 Dose: 50 mg Hydromorphone HCl (Hydromorphone 1 Mg/1 Ml Inj) 0.5 mg IV Q23H PRN PRN Reason: Pain , Severe (7-10) Sodium Chloride (Nacl 0.9% 1000 Ml) 1,000 mls @ 100 mls/hr IV DIRECT [facility] Insulin Human Lispro (Insulin Lispro 100 Unit/Ml) 0 unit SUB-Q Q6HR [facility]; Protoc ol Last Admin: 07/08/21 06:02 Dose: Not Given Metoprolol Tartrate (Metoprolol Tartrate 25 Mg Tab) 25 mg PO BID [facility] Last Admin: 07/07/21 22:52 Dose: 25 mg Mirtazapine (Mirtazapine 15 Mg Tab) 45 mg PO QHS [facility] Last Admin: 07/07/21 22:51 Dose: 45 mg Ondansetron HCl (Ondansetron 4 Mg/2 Ml Inj) 4 mg IV Q8H PRN PRN Reason: Nausea And Vomiting Oxycodone/Acetaminophen (Oxycodone /Acetaminophen 5-325mg Tab) 1 tab PO Q16H PRN PRN Reason: Pain, Moderate (4-6) Pregabalin (Pregabalin 50 Mg Cap) 100 mg PO TID [facility] Last Admin: 07/08/21 06:28 Dose: 100 mg Quetiapine Fumarate (Quetiapine 200 Mg Tab) 800 mg PO QPM [facility] Sodium Chloride (Sodium Chloride 0.9% 10 Ml Flush Syringe) 10 ml IV BID [facility] Sodium Chloride (Sodium Chloride 0.9% 10 Ml Flush Syringe) 10 ml IV PRN PRN PRN Reason: LINE FLUSH Trazodone HCl (Trazodone 100 Mg Tab) 300 mg PO QHS [facility] Last Admin: 07/07/21 22:51 Dose: 300 mg Mental Status Exam - Vital signs Last Vital Signs Temp 99.2 F 07/07/21 19:18 Pulse 89 07/07/21 16:10 Resp 19 07/07/21 19:18 BP 160/95 07/08/21 05:58 Pulse Ox 98 07/08/21 11:11 Results Result Diagrams: 07/08/21 06:59 07/08/21 06:59 Abnormal lab results 07/07/21 07/07/21 07/07/21 Range/Units 13:27 13:27 22:14 WBC (4.5-11.0) K/mm3 MCH (28-32) pg RDW (13.2-15.2) % Lymph % (Auto) (13.4-35.0) % [place] % (Auto) (0.0-7.3) % [place] # (Auto) (0.0-0.8) K/mm3 Seg Neutrophils % (40.0-70.0) % Seg Neutrophils # (1.8-7.7) K/mm3 D-Dimer 1937.58 H (0-234) ng/mlDDU Chloride (98-107) mmol/L Carbon Dioxide (22-30) mmol/L BUN (7-17) mg/dL Creatinine (0.6-1.2) mg/dL Glucose (65-100) mg/dL POC Glucose 164 H (70-105) mg/dL Lactate Dehydrogenase 428 H (91-180) units/L Urine WBC (Auto) (0.0-6.0) /HPF 07/07/21 07/08/21 07/08/21 Range/Units Unknown 05:51 06:59 WBC 12.6 H (4.5-11.0) K/mm3 MCH 27 L (28-32) pg RDW 15.5 H (13.2-15.2) % Lymph % (Auto) 9.9 L (13.4-35.0) % [place] % (Auto) 8.0 H (0.0-7.3) % [place] # (Auto) 1.0 H (0.0-0.8) K/mm3 Seg Neutrophils % 81.9 H (40.0-70.0) % Seg Neutrophils # 10.3 H (1.8-7.7) K/mm3 D-Dimer (0-234) ng/mlDDU Chloride (98-107) mmol/L Carbon Dioxide (22-30) mmol/L BUN (7-17) mg/dL Creatinine (0.6-1.2) mg/dL Glucose (65-100) mg/dL POC Glucose 144 H (70-105) mg/dL Lactate Dehydrogenase (91-180) units/L Urine WBC (Auto) 10.0 H (0.0-6.0) /HPF 07/08/21 Range/Units 06:59 WBC (4.5-11.0) K/mm3 MCH (28-32) pg RDW (13.2-15.2) % Lymph % (Auto) (13.4-35.0) % [place] % (Auto) (0.0-7.3) % [place] # (Auto) (0.0-0.8) K/mm3 Seg Neutrophils % (40.0-70.0) % Seg Neutrophils # (1.8-7.7) K/mm3 D-Dimer (0-234) ng/mlDDU Chloride 109.9 H (98-107) mmol/L Carbon Dioxide 13 L (22-30) mmol/L BUN 38 H (7-17) mg/dL Creatinine 3.2 H (0.6-1.2) mg/dL Glucose 262 H (65-100) mg/dL POC Glucose (70-105) mg/dL Lactate Dehydrogenase (91-180) units/L Urine WBC (Auto) (0.0-6.0) /HPF All other labs normal.
--- NOTE | 2021-07-08 15:36 | Progress Note ---
Assessment and Plan 71 YO Female with HTN, DM, CKD, MDD, DARIEL, OA, Vascular Dementia, Cerebral Atherosclerosis presents to ED for evaluation for diminished cognition. Patient was found down sitting on the floor beside her bed by family members. EMS was notified and transported to ER. All lab and imaging studies reviewed. CXR no infiltrates. Patient found to have systemic inflammatory response, acute kidney injury, metabolic encephalopathy, and uncontrolled diabetes mellitus. Patient admitted to medical floor and initiated on coronavirus protocol due to increased risk of worsening symptoms. Assessment and plan --SIRS (systemic inflammatory response syndrome) Presented with mild leukocytosis and tachycardia Ordered test for COVID-19 Continue to follow clinically -- Acute kidney injury (CARLOS) with acute tubular necrosis (ATN) IV fluid resuscitation therapy, repeat BMP in a.m. to monitor serum creatinine. -- Uncontrolled diabetes mellitus Consistent carbohydrate diet, Accu-Chek, insulin protocol, IV fluid resusc itation therapy, hypoglycemia protocol. --Accelerated hypertension Monitor blood pressure every shift, continue medical management. Adjusted medication as needed -- Vascular dementia with behavioral disturbance/acute psychosis Verbal prompting, verbal redirection, benzodiazepine therapy as clinically indicated. Psych consulted and recommending inpatient psych therapy --Suspected 2019 novel coronavirus infection Coronavirus protocol: IV antibiotic therapy, supplemental oxygen, pulse oximet ry, vitamin C therapy, vitamin D therapy, zinc therapy, prophylactic anticoagulation. Ordered for COVID-19 PCR -- COVID-19 vaccination not done Patient is overdue for COVID-19 booster -- DVT prophylaxis SCD to bilateral lower extremities while in bed Daily clinical course: 2/2; patient remains confused, not oriented to place or person. Being evaluated by psychiatry and recommending inpatient psych management. Renal function worsening, continue IV fluid. If no improvement will consult nephrology. Continue to follow clinically, Covid PCR test pending. Subjective Date of service: 07/08/21 Interval history: Patient seen and examined. Medical records and medication list reviewed. No acute event overnight noted by the RN. Patient resting on bed mostly nonverbal -just nodding head when answering any question Discussed plan of care at bedside with RN. Objective - Exam Narrative Exam: GENERAL: Elderly -[place] female lying on bed appeared to be in no discomfort. HEENT: Normocephalic. Atraumatic. No conjunctival congestion or icterus. Patient has moist mucous membranes. NECK: Supple. Trachea midline. CHEST/LUNGS: Clear to auscultated bilaterally, breathing nonlabored. No wheezes crackles or rhonchi. HEART/CARDIOVASCULAR: Regular in rate and rhythm. S1 and S2 positive. ABDOMEN: Abdomen is soft, nontender. Patient has normal bowel sounds. SKIN: There is no rash. Warm and dry. NEURO: No focal motor deficit. Patient follows minor commands but mostly nonverbal MUSCULOSKELETAL: No joint effusion or tenderness. EXTRIMITY: No edema, no cyanosis or clubbing. PSYCH: Oriented to person only. - Constitutional Vitals: Vital Signs - 12hr 07/08/21 07/08/21 07/08/21 05:00 05:58 11:11 Blood Pressure 160/95 O2 Sat by Pulse 97 98 Oximetry - Labs CBC & Chem 7: 07/08/21 06:59 07/09/21 06:10 Labs: Abnormal lab results 07/07/21 07/08/21 07/08/21 Range/Units 22:14 05:51 06:59 WBC 12.6 H (4.5-11.0) K/mm3 MCH 27 L (28-32) pg RDW 15.5 H (13.2-15.2) % Lymph % (Auto) 9.9 L (13.4-35.0) % [place] % (Auto) 8.0 H (0.0-7.3) % [place] # (Auto) 1.0 H (0.0-0.8) K/mm3 Seg Neutrophils % 81.9 H (40.0-70.0) % Seg Neutrophils # 10.3 H (1.8-7.7) K/mm3 Chloride (98-107) mmol/L Carbon Dioxide (22-30) mmol/L BUN (7-17) mg/dL Creatinine (0.6-1.2) mg/dL Glucose (65-100) mg/dL POC Glucose 164 H 144 H (70-105) mg/dL 07/08/21 Range/Units 06:59 WBC (4.5-11.0) K/mm3 MCH (28-32) pg RDW (13.2-15.2) % Lymph % (Auto) (13.4-35.0) % Nolan % (Auto) (0.0-7.3) % [place] # (Auto) (0.0-0.8) K/mm3 Seg Neutrophils % (40.0-70.0) % Seg Neutrophils # (1.8-7.7) K/mm3 Chloride 109.9 H (98-107) mmol/L Carbon Dioxide 13 L (22-30) mmol/L BUN 38 H (7-17) mg/dL Creatinine 3.2 H (0.6-1.2) mg/dL Glucose 262 H (65-100) mg/dL POC Glucose (70-105) mg/dL HEART Score - HEART Score Troponin: Troponin T < 0.010 ng/mL (0.00-0.029) 07/07/21 09:03
[2021-07-08] MEDS: FAMOTIDINE 20 MG TAB PO SCH (16:02)
[2021-07-08] MEDS: risperiDONE 0.25 MG TAB PO SCH ×2 (16:02→21:19)
[2021-07-08] MEDS: amLODIPine 5 MG TAB PO SCH (16:03)
[2021-07-08] MEDS: BACLOFEN 10 MG TAB PO SCH ×2 (16:04→21:19)
[2021-07-08] MEDS: FLUoxetine 20 MG CAP PO SCH (17:33)
[2021-07-08] MEDS ORDERED: NON-FORMULARY EACH (Mirtazapine [Remeron 45mg Tab] 45 MG Tab.Rapdis) PO SCH (18:00)
[2021-07-08] MEDS ORDERED: TRAZODONE HCL 300 MG PO SCH (18:00)
[2021-07-08] MEDS ORDERED: NON-FORMULARY EACH (Hydralazine Hcl [Hydralazine Hcl] 50 MG Tablet) PO SCH (20:00)
[2021-07-08] MEDS: traZODone 100 MG TAB PO SCH (21:18)
[2021-07-08] MEDS: MIRTAZAPINE 15 MG TAB PO SCH (21:19)
[2021-07-08] MEDS: METOPROLOL TARTRATE 25 MG TAB PO SCH (21:23)
[2021-07-08] MEDS ORDERED: NON-FORMULARY EACH (Quetiapine Fumarate [Seroquel] 400 MG Tablet) PO SCH (22:00)
[2021-07-08] MEDS ORDERED: NON-FORMULARY EACH (Trazodone Hcl [Trazodone Hcl] 150 MG Tablet) PO SCH (22:00)
[2021-07-09] MEDS: hydrALAZINE 25 MG TAB PO SCH ×3 (05:36→22:41)
[2021-07-09] MEDS: INSULIN LISPRO 100 UNIT/ML SUB-Q SCH ×3 (05:42→18:43)
--- NOTE | 2021-07-09 09:17 | Consultation ---
History of Present Illness - Reason for Consult Consult date: 07/09/21 acute renal failure Requesting physician: ALFREDO TORRES - History of Present Illness 71 YO Female with HTN, DM, CKD, MDD, DARIEL, OA, Vascular Dementia, Cerebral Atherosclerosis presents to ED for evaluation. Patient has diminished cognition as is nonverbal and unable to provide history. Patient history taken from EMS staff, ED staff, as well as the patient family who was made available by telep sharri interview. As per family the patient has experienced increased confusion and tangential thinking over the past several weeks with persistently worsening symptoms over the same timeframe. Patient was found down sitting on the floor beside her bed today. EMS was notified and upon arrival the patient was found to be in distress and subsequent transported to [facility] for further care and evaluation of the aforementioned symptoms. The patient was seen and evaluated in the emergency department. All lab and imaging studies reviewed. Patient found to have systemic inflammatory response syndrome secondary to pneumonia, acute kidney injury, metabolic encephalopathy, and uncontrolled diabetes marlo litus. Patient admitted to medical floor and initiated on pneumonia protocol as well as coronavirus protocol due to increased risk of worsening symptoms. No reports of fever, chills, chest pain, palpitation, productive cough, skin rash, recent contact, or known exposure to COVID-19. Patient was vaccinated in August against COVID-19 but has not undergone booster therapy. No prior mission for review. No medication listed at time of admission for reconciliation. Advanced care planning conducted in ED. Past History Past Medical History: diabetes, hypertension, renal failure Past Surgical History: Other (Hand, right leg, right shoulder) Social history: single. denies: smoking, alcohol abuse, prescription drug abuse Family history: diabetes, hypertension Review of Systems ROS unobtainable: due to mental status Past History Past Medical History: diabetes, hypertension, renal failure Past Surgical History: Other (Hand, right leg, right shoulder) Social history: single. denies: smoking, alcohol abuse, prescription drug abuse Family history: diabetes, hypertension Medications and Allergies Allergies Allergy/AdvReac Type Severity Reaction Status Date / Time No Known Allergies Allergy Verified 07/08/21 09:14 Home Medications Medication Instructions Recorded Confirmed Last Taken Type Ondansetron [Zofran Odt] 4 mg PO Q8HR PRN #14 tab.rapdis 09/14/20 07/07/21 4 Days Ago Rx ~07/04/21 traMADoL [Ultram 50 MG tab] 50 mg PO Q4HR PRN #14 tablet 09/14/20 07/07/21 4 Days Ago Rx ~07/04/21 Baclofen [Lioresal] 5 mg PO TID 07/07/21 07/07/21 4 Days Ago History ~07/04/21 Duloxetine HCl [Drizalma Sprinkle] 30 mg PO QAM 07/07/21 07/07/21 4 Days Ago History ~07/04/21 FLUoxetine [PROzac] 20 mg PO QAM 07/07/21 07/08/21 4 Days Ago History ~07/04/21 Famotidine [Acid-Pep] 20 mg PO QDAY 07/07/21 07/07/21 4 Days Ago History ~07/04/21 Pregabalin [Lyrica] 100 mg PO TID 07/07/21 07/07/21 4 Days Ago History ~07/04/21 Tizanidine HCl 2 mg PO QDAY PRN 07/07/21 07/07/21 4 Days Ago History ~07/04/21 lisinopriL [Lisinopril] 10 mg PO QDAY 07/07/21 07/07/21 4 Days Ago History ~07/04/21 Aspirin EC [Halfprin EC] 81 mg PO QDAY 07/08/21 07/08/21 4 Days Ago History ~07/04/21 Hydralazine HCl 50 mg PO TID 07/08/21 07/08/21 4 Days Ago History ~07/04/21 Insulin Aspart Protam & Aspart 0 units SQ QAM 07/08/21 07/08/21 6 Days Ago History [NovoLOG Mix 70-30 Flexpen] ~07/02/21 Metoprolol [Lopressor] 25 mg PO QDAY 07/08/21 07/08/21 4 Days Ago History ~07/04/21 Quetiapine Fumarate [SEROquel] 800 mg PO QHS 07/08/21 07/08/21 4 Days Ago History ~07/04/21 Trazodone HCl 300 mg PO QHS 07/08/21 07/08/21 4 Days Ago History ~07/04/21 amLODIPine/ATORVASTATIN [Caduet 1 tab PO QDAY 02/02/22 02/02/22 4 Days Ago History 10-20 mg] ~07/04/21 Active Meds: Active Medications Acetaminophen (Acetaminophen 325 Mg Tab) 650 mg PO Q4H PRN PRN Reason: Pain MILD(1-3)/Fever >100.5/AVINA Albuterol (Albuterol 2.5 Mg/3 Ml Nebu) 2.5 mg IH Q4HRT PRN PRN Reason: Shortness Of Breath Amlodipine Besylate (Amlodipine 5 Mg Tab) 2.5 mg PO QDAY [facility] Last Admin: 07/08/21 16:03 Dose: 2.5 mg Aspirin (Aspirin Ec 81 Mg Tab) 81 mg PO QDAY [facility] Atorvastatin Calcium (Atorvastatin 20 Mg Tab) 20 mg PO QHS [facility] Last Admin: 07/08/21 21:20 Dose: 20 mg Baclofen (Baclofen 10 Mg Tab) 5 mg PO TID [facility] Last Admin: 07/08/21 21:19 Dose: 5 mg Dextrose (Dextrose 50% In Water (25gm) 50 Ml Syringe) 50 ml IV Q30MIN PRN; Protocol PRN Reason: Hypoglycemia Dextrose (Dextrose 10% *Hypoglycemia) 0 ml IV PRN PRN PRN Reason: Hypoglycemia Duloxetine HCl (Duloxetine 30 Mg Cap) 30 mg PO QDAY [facility] Last Admin: 07/08/21 16:02 Dose: Not Given Famotidine (Famotidine 20 Mg Tab) 20 mg PO QDAY [facility] Last Admin: 07/08/21 16:02 Dose: 20 mg Fluoxetine HCl (Fluoxetine 20 Mg Cap) 20 mg PO QDAY [facility] Last Admin: 07/08/21 17:33 Dose: Not Given Hydralazine HCl (Hydralazine 25 Mg Tab) 50 mg PO Q8HR [facility] Last Admin: 07/09/21 05:36 Dose: 50 mg Hydromorphone HCl (Hydromorphone 1 Mg/1 Ml Inj) 0.5 mg IV Q23H PRN PRN Reason: Pain , Severe (7-10) Sodium Chloride (Nacl 0.9% 1000 Ml) 1,000 mls @ 100 mls/hr IV DIRECT [facility] Insulin Human Lispro (Insulin Lispro 100 Unit/Ml) 0 unit SUB-Q Q6HR [facility]; Protocol Last Admin: 07/09/21 05:42 Dose: 4 unit Metoprolol Tartrate (Metoprolol Tartrate 25 Mg Tab) 25 mg PO BID [facility] Last Admin: 07/08/21 21:23 Dose: 25 mg Mirtazapine (Mirtazapine 15 Mg Tab) 45 mg PO QHS [facility] Last Admin: 07/08/21 21:19 Dose: 45 mg Ondansetron HCl (Ondansetron 4 Mg/2 Ml Inj) 4 mg IV Q8H PRN PRN Reason: Nausea And Vomiting Oxycodone/Acetaminophen (Oxycodone /Acetaminophen 5-325mg Tab) 1 tab PO Q16H PRN PRN Reason: Pain, Moderate (4-6) Pregabalin (Pregabalin 50 Mg Cap) 100 mg PO TID [facility] Last Admin: 07/08/21 21:19 Dose: 100 mg Quetiapine Fumarate (Quetiapine 200 Mg Tab) 800 mg PO QPM [facility] Risperidone (Risperidone 0.25 Mg Tab) 0.25 mg PO BID [facility] Last Admin: 07/08/21 21:19 Dose: 0.25 mg Sodium Chloride (Sodium Chloride 0.9% 10 Ml Flush Syringe) 10 ml IV BID [facility] Last Admin: 07/08/21 21:24 Dose: 10 ml Sodium Chloride (Sodium Chloride 0.9% 10 Ml Flush Syringe) 10 ml IV PRN PRN PRN Reason: LINE FLUSH Trazodone HCl (Trazodone 100 Mg Tab) 300 mg PO QHS [facility] Last Admin: 07/08/21 21:18 Dose: 300 mg Exam - Vital Signs Vital signs: Vital Signs Temp Pulse Resp BP Pulse Ox 95 F L 89 16 193/116 97 07/07/21 08:40 07/07/21 08:40 07/07/21 08:40 07/07/21 08:40 07/07/21 08:40 - Physical Exam Narrative exam: General appearance: Present: mild distress - EENT Eyes: Present: PERRL ENT: hearing intact, clear oral mucosa - Neck Neck: Present: supple, normal ROM - Respiratory Respiratory effort: normal Respiratory: bilateral: CTA - Cardiovascular Heart Sounds: Present: S1 & S2. Absent: rub, click - Extremities Extremities: pulses symmetrical, No edema Peripheral Pulses: within normal limits - Abdominal General gastrointestinal: Present: soft, non-tender, non-distended, normal bowel sounds Female genitourinary: Present: normal - Integumentary Integumentary: Present: clear, warm, dry - Musculoskeletal Musculoskeletal: gait normal, strength equal bilaterally - Psychiatric Psychiatric: appropriate mood/affect, intact judgment & insight - Neurologic Neurologic: CNII-XII intact, moves all extremities Results - Lab Results 07/08/21 06:59 07/09/21 06:10 Most recent lab results Calcium 9.0 mg/dL (8.4-10.2) 07/09/21 06:10 Assessment and Plan Impression: * CARLOS * AMS * Acute Psychosis * volume depletion * DM * COVID PUI * polypharmacy Plan: * continue ivfs * daily lytes and strict i/os * renal diet * ua noted * carlos likely due to volume depletion and hypoperfusion * multiple psy and antidepressant meds with numerous interaction, med list needs to be redefine * no renal indications for [employer]
[2021-07-09] MEDS: PREGABALIN 50 MG CAP PO SCH ×3 (09:58→22:00)
[2021-07-09] MEDS: amLODIPine 5 MG TAB PO SCH (10:00)
[2021-07-09] MEDS: ASPIRIN EC 81 MG TAB PO SCH (10:03)
[2021-07-09] MEDS: METOPROLOL TARTRATE 25 MG TAB PO SCH ×2 (10:03→22:41)
[2021-07-09] MEDS: FAMOTIDINE 20 MG TAB PO SCH (10:04)
[2021-07-09] MEDS: FLUoxetine 20 MG CAP PO SCH (10:05)
[2021-07-09] MEDS: risperiDONE 0.25 MG TAB PO SCH ×2 (10:05→22:42)
--- NOTE | 2021-07-09 14:01 | Progress Note ---
Assessment and Plan 71 YO Female with HTN, DM, CKD, MDD, DARIEL, OA, Vascular Dementia, Cerebral Atherosclerosis presents to ED for evaluation for diminished cognition. Patient was found down sitting on the floor beside her bed by family members. EMS was notified and transported to ER. All lab and imaging studies reviewed. CXR no infiltrates. Patient found to have systemic inflammatory response, acute kidney injury, metabolic encephalopathy, and uncontrolled diabetes mellitus. Patient admitted to medical floor and initiated on coronavirus protocol due to increased risk of worsening symptoms. Assessment and plan --SIRS (systemic inflammatory response syndrome) Presented with mild leukocytosis and tachycardia Ordered test for COVID-19 Continue to follow clinically -- Acute kidney injury (CARLOS) with acute tubular necrosis (ATN) IV fluid resuscitation therapy, repeat BMP in a.m. to monitor serum creatinine. -- Uncontrolled diabetes mellitus Consistent carbohydrate diet, Accu-Chek, insulin protocol, IV fluid resusc itation therapy, hypoglycemia protocol. --Accelerated hypertension Monitor blood pressure every shift, continue medical management. Adjusted medication as needed -- Vascular dementia with behavioral disturbance/acute psychosis Verbal prompting, verbal redirection, benzodiazepine therapy as clinically indicated. Psych consulted and recommending inpatient psych therapy --Suspected 2019 novel coronavirus infection Coronavirus protocol: IV antibiotic therapy, supplemental oxygen, pulse oximet ry, vitamin C therapy, vitamin D therapy, zinc therapy, prophylactic anticoagulation. Ordered for COVID-19 PCR -- COVID-19 vaccination not done Patient is overdue for COVID-19 booster -- DVT prophylaxis SCD to bilateral lower extremities while in bed Daily clinical course: 2/2; patient remains confused, not oriented to place or person. Being evaluated by psychiatry and recommending inpatient psych management. Renal function worsening, continue IV fluid. If no improvement will consult nephrology. Continue to follow clinically, Covid PCR test pending. 2/3: Renal function continued to decline, continue IV fluid, consult nephrology. Covid PCR still pending. Continue to follow clinically. Psych following. Subjective Date of service: 07/09/21 Objective - Constitutional Vitals: Vital Signs - 12hr 07/09/21 07/09/21 07/09/21 05:00 05:21 05:36 Temperature 98.0 F Pulse Rate 73 73 Respiratory 20 Rate Blood Pressure 151/80 151/80 O2 Sat by Pulse 97 96 Oximetry 07/09/21 07/09/21 07/09/21 10:00 10:03 11:35 Temperature 97.9 F Pulse Rate 70 75 Respiratory 18 Rate Blood Pressure 120/63 O2 Sat by Pulse Oximetry 07/09/21 13:34 Temperature Pulse Rate 67 Respiratory Rate Blood Pressure O2 Sat by Pulse Oximetry - Labs CBC & Chem 7: 07/08/21 06:59 07/09/21 06:10 Labs: Abnormal lab results 07/08/21 07/09/21 07/09/21 Range/Units 22:48 05:19 06:10 Chloride 107.1 H (98-107) mmol/L Carbon Dioxide 19 L (22-30) mmol/L BUN 47 H (7-17) mg/dL Creatinine 3.7 H (0.6-1.2) mg/dL Glucose 168 H (65-100) mg/dL POC Glucose 320 H 165 H (70-105) mg/dL 07/09/21 Range/Units 11:35 Chloride (98-107) mmol/L Carbon Dioxide (22-30) mmol/L BUN (7-17) mg/dL Creatinine (0.6-1.2) mg/dL Glucose (65-100) mg/dL POC Glucose 312 H (70-105) mg/dL HEART Score - HEART Score Troponin: Troponin T < 0.010 ng/mL (0.00-0.029) 07/07/21 09:03
[2021-07-09] MEDS: HEPARIN 5,000 UNIT/1 ML VIAL SUB-Q SCH ×2 (16:28→22:42)
--- NOTE | 2021-07-09 16:46 | Ultrasound Report ---
BLADDER ULTRASOUND HISTORY: Renal failure. FINDINGS: Prevoid volume is 159 mL. Postvoid volume is 149). IMPRESSION: Large post void volume. No significant wall thickening identified. Signer Name: Rafy Rose MD Signed: 07/09/2021 4:41 PM Workstation Name: [id number]
[2021-07-09] MEDS: QUEtiapine 200 MG TAB PO SCH (18:00)
[2021-07-10] MEDS: INSULIN LISPRO 100 UNIT/ML SUB-Q SCH ×4 (00:21→17:05)
[2021-07-10 05:10] LABS: Basophils % (Auto) 0.4 % (0.0-1.8); Eosinophils # (Auto) 0.2 K/mm3 (0.0-0.4); Eosinophils % (Auto) 2.1 % (0.0-4.3); Hematocrit 35.5 % (30.3-42.9); Hemoglobin 11.3 gm/dl (10.1-14.3); Lymphocytes # (Auto) 3.4 K/mm3 (1.2-5.4); Lymphocytes % (Auto) 33.7 % (13.4-35.0); Mean Corpuscular HGB Conc 32 % (30-34); Mean Corpuscular Volume 88 fl (79-97); Monocytes # (Auto) 1.1 K/mm3 (0.0-0.8); Monocytes % (Auto) 11.3 % (0.0-7.3); Platelet Count 270 K/mm3 (140-440); Red Blood Count 4.05 M/mm3 (3.65-5.03); Red Cell Distribution Width 15.8 % (13.2-15.2)
[2021-07-10 05:31] LABS: Albumin 3.4 g/dL (3.9-5)
[2021-07-10] MEDS: hydrALAZINE 25 MG TAB PO SCH ×3 (05:57→21:58)
[2021-07-10] MEDS: HEPARIN 5,000 UNIT/1 ML VIAL SUB-Q SCH ×3 (05:57→21:47)
[2021-07-10] MEDS: ASPIRIN EC 81 MG TAB PO SCH (09:38)
[2021-07-10] MEDS: risperiDONE 0.25 MG TAB PO SCH ×2 (09:38→21:47)
[2021-07-10] MEDS: FAMOTIDINE 20 MG TAB PO SCH (09:39)
[2021-07-10] MEDS: amLODIPine 5 MG TAB PO SCH (09:39)
[2021-07-10] MEDS: FLUoxetine 20 MG CAP PO SCH (09:39)
[2021-07-10] MEDS: METOPROLOL TARTRATE 25 MG TAB PO SCH ×2 (09:39→21:59)
[2021-07-10] MEDS: PREGABALIN 50 MG CAP PO SCH ×3 (09:40→20:35)
--- NOTE | 2021-07-10 10:02 | Progress Note ---
Assessment and Plan Impression: * CARLOS on ckd 3/4 * AMS * Acute Psychosis * volume depletion * DM * COVID PUI * polypharmacy * urinary retention Plan: * continue ivfs * cr worse today, follow up renal imaging reveals retention, need riddle cath placement or straight cath periodically * daily lytes and strict i/os * renal diet * ua noted * carlos likely due to volume depletion and hypoperfusion * multiple psy and antidepressant meds with numerous interaction, med list needs to be redefine * no renal indications for [employer] Subjective Date of service: 07/10/21 Principal diagnosis: carlos on ckd, acute psychosis Interval history: labs and chart reviewed events noted Objective - Exam Narrative Exam: General appearance: Present: mild distress - EENT Eyes: Present: PERRL ENT: hearing intact, clear oral mucosa - Neck Neck: Present: supple, normal ROM - Respiratory Respiratory effort: normal Respiratory: bilateral: CTA - Cardiovascular Heart Sounds: Present: S1 & S2. Absent: rub, click - Extremities Extremities: pulses symmetrical, No edema Peripheral Pulses: within normal limits - Abdominal General gastrointestinal: Present: soft, non-tender, non-distended, normal bowel sounds Female genitourinary: Present: normal - Integumentary Integumentary: Present: clear, warm, dry - Musculoskeletal Musculoskeletal: gait normal, strength equal bilaterally - Psychiatric Psychiatric: appropriate mood/affect, intact judgment & insight - Neurologic Neurologic: CNII-XII intact, moves all extremities - Vital Signs Vital signs: Vital Signs - 12hr 07/09/21 07/10/21 07/10/21 22:41 04:24 05:57 Temperature 98.3 F Pulse Rate 79 78 78 Respiratory 18 Rate Blood Pressure 134/71 128/75 128/75 O2 Sat by Pulse 98 Oximetry 07/10/21 09:39 Temperature Pulse Rate 88 Respiratory Rate Blood Pressure O2 Sat by Pulse Oximetry - Lab 07/10/21 04:22 07/10/21 04:22 Most recent lab results WBC 10.1 K/mm3 (4.5-11.0) 07/10/21 04:22 RBC 4.05 M/mm3 (3.65-5.03) 07/10/21 04:22 Hgb 11.3 gm/dl (10.1-14.3) 07/10/21 04:22 Hct 35.5 % (30.3-42.9) 07/10/21 04:22 MCV 88 fl (79-97) 07/10/21 04:22 MCH 28 pg (28-32) 07/10/21 04:22 MCHC 32 % (30-34) 07/10/21 04:22 RDW 15.8 % (13.2-15.2) H 07/10/21 04:22 Plt Count 270 K/mm3 (140-440) 07/10/21 04:22 Lymph % (Auto) 33.7 % (13.4-35.0) 07/10/21 04:22 [place] % (Auto) 11.3 % (0.0-7.3) H 07/10/21 04:22 Eos % (Auto) 2.1 % (0.0-4.3) 07/10/21 04:22 Baso % (Auto) 0.4 % (0.0-1.8) 07/10/21 04:22 Lymph # (Auto) 3.4 K/mm3 (1.2-5.4) 07/10/21 04:22 [place] # (Auto) 1.1 K/mm3 (0.0-0.8) H 07/10/21 04:22 Eos # (Auto) 0.2 K/mm3 (0.0-0.4) 07/10/21 04:22 Baso # (Auto) 0.0 K/mm3 (0.0-0.1) 07/10/21 04:22 Seg Neutrophils % 52.5 % (40.0-70.0) 07/10/21 04:22 Seg Neutrophils # 5.3 K/mm3 (1.8-7.7) 07/10/21 04:22 PT 13.6 Sec. (12.2-14.9) 07/07/21 09:03 INR 0.94 (0.87-1.13) 07/07/21 09:03 APTT 28.3 Sec. (24.2-36.6) 07/07/21 09:03 D-Dimer 1937.58 ng/mlDDU (0-234) H 07/07/21 13:27 VBG pH 7.276 (7.320-7.420) L 07/07/21 09:03 Sodium 138 mmol/L (137-145) 07/10/21 04:22 Potassium 4.1 mmol/L (3.6-5.0) 07/10/21 04:22 Chloride 110.0 mmol/L (98-107) H 07/10/21 04:22 Carbon Dioxide 15 mmol/L (22-30) L 07/10/21 04:22 Anion Gap 17 mmol/L 07/10/21 04:22 BUN 58 mg/dL (7-17) H 07/10/21 04:22 Creatinine 4.7 mg/dL (0.6-1.2) H 07/10/21 04:22 Estimated GFR 11 ml/min 07/10/21 04:22 BUN/Creatinine Ratio 12 % 07/10/21 04:22 Glucose 70 mg/dL (65-100) 07/10/21 04:22 POC Glucose 96 mg/dL (70-105) 07/10/21 05:27 Calcium 8.0 mg/dL (8.4-10.2) L 07/10/21 04:22 Total Bilirubin 0.20 mg/dL (0.1-1.2) 07/10/21 04:22 AST 11 units/L (5-40) 07/10/21 04:22 ALT 11 units/L (7-56) 07/10/21 04:22 Alkaline Phosphatase 69 units/L (35-129) 07/10/21 04:22 Ammonia 22.0 umol/L (25-60) L 07/07/21 09:03 Lactate Dehydrogenase 428 units/L (91-180) H 07/07/21 13:27 Total Creatine Kinase 100 units/L (30-135) 07/07/21 09:03 CK-MB (CK-2) 2.9 ng/mL (0.0-4.0) 07/07/21 09:03 CK-MB (CK-2) Rel Index 2.9 (0-4) 07/07/21 09:03 Troponin T < 0.010 ng/mL (0.00-0.029) 07/07/21 09:03 C-Reactive Protein 0.00 mg/dL (0.00-1.30) 07/07/21 13:27 Total Protein 6.3 g/dL (6.3-8.2) 07/10/21 04:22 Albumin 3.4 g/dL (3.9-5) L 07/10/21 04:22 Albumin/Globulin Ratio 1.2 % 07/10/21 04:22 Procalcitonin < 0.05 ng/mL (<0.15) 07/07/21 13:27 TSH 1.880 mlU/mL (0.270-4.200) 07/07/21 09:03 Free T4 1.31 ng/dL (0.76-1.46) 07/07/21 09:03 Urine Color Yellow (Yellow) 07/07/21 Unknown Urine Turbidity Hazy (Clear) 07/07/21 Unknown Urine pH 5.0 (5.0-7.0) 07/07/21 Unknown Ur Specific [place] 1.016 (1.003-1.030) 07/07/21 Unknown Urine Protein >500 mg/dL (Negative) 07/07/21 Unknown Urine Glucose (UA) Neg mg/dL (Negative) 07/07/21 Unknown Urine Ketones 20 mg/dL (Negative) 07/07/21 Unknown Urine Blood Neg (Negative) 07/07/21 Unknown Urine Nitrite Neg (Negative) 07/07/21 Unknown Urine Bilirubin Neg (Negative) 07/07/21 Unknown Urine Urobilinogen < 2.0 mg/dL (<2.0) 07/07/21 Unknown Ur Leukocyte Esterase Neg (Negative) 07/07/21 Unknown Urine WBC (Auto) 10.0 /HPF (0.0-6.0) H 07/07/21 Unknown Urine RBC (Auto) 4.0 /HPF (0.0-6.0) 07/07/21 Unknown U Epithel Cells (Auto) < 1.0 /HPF (0-13.0) 07/07/21 Unknown Urine Opiates Screen Negative 07/07/21 Unknown Urine Methadone Screen Negative 07/07/21 Unknown Ur Barbiturates Screen Negative 07/07/21 Unknown Ur Phencyclidine Scrn Negative 07/07/21 Unknown Ur Amphetamines Screen Negative 07/07/21 Unknown U Benzodiazepines Scrn Negative 07/07/21 Unknown Urine Cocaine Screen Negative 07/07/21 Unknown U Marijuana (THC) Screen Negative 07/07/21 Unknown Drugs of Abuse Note Disclamer 07/07/21 Unknown Plasma/Serum Alcohol < 0.01 % (0-0.07) 07/07/21 09:03 Coronavirus (PCR) Negative (Negative) 07/09/21 11:45 Medications & Allergies - Medications Allergies/Adverse Reactions: Allergies No Known Allergies Allergy (Verified 07/08/21 09:14) Home Medications: Home Medications Medication Instructions Recorded Confirmed Last Taken Type Ondansetron [Zofran Odt] 4 mg PO Q8HR PRN #14 tab.rapdis 09/14/20 07/07/21 4 Days Ago Rx ~07/04/21 traMADoL [Ultram 50 MG tab] 50 mg PO Q4HR PRN #14 tablet 09/14/20 07/07/21 4 Days Ago Rx ~07/04/21 Baclofen [Lioresal] 5 mg PO TID 07/07/21 07/07/21 4 Days Ago History ~07/04/21 Duloxetine HCl [Drizalma Sprinkle] 30 mg PO QAM 07/07/21 07/07/21 4 Days Ago History ~07/04/21 FLUoxetine [PROzac] 20 mg PO QAM 07/07/21 07/08/21 4 Days Ago History ~07/04/21 Famotidine [Acid-Pep] 20 mg PO QDAY 07/07/21 07/07/21 4 Days Ago History ~07/04/21 Pregabalin [Lyrica] 100 mg PO TID 07/07/21 07/07/21 4 Days Ago History ~07/04/21 Tizanidine HCl 2 mg PO QDAY PRN 07/07/21 07/07/21 4 Days Ago History ~07/04/21 lisinopriL [Lisinopril] 10 mg PO QDAY 07/07/21 07/07/21 4 Days Ago History ~07/04/21 Aspirin EC [Halfprin EC] 81 mg PO QDAY 07/08/21 07/08/21 4 Days Ago History ~07/04/21 Hydralazine HCl 50 mg PO TID 07/08/21 07/08/21 4 Days Ago History ~07/04/21 Insulin Aspart Protam & Aspart 0 units SQ QAM 07/08/21 07/08/21 6 Days Ago History [NovoLOG Mix 70-30 Flexpen] ~07/02/21 Metoprolol [Lopressor] 25 mg PO QDAY 07/08/21 07/08/21 4 Days Ago History ~07/04/21 Quetiapine Fumarate [SEROquel] 800 mg PO QHS 07/08/21 07/08/21 4 Days Ago History ~07/04/21 Trazodone HCl 300 mg PO QHS 07/08/21 07/08/21 4 Days Ago History ~07/04/21 amLODIPine/ATORVASTATIN [Caduet 1 tab PO QDAY 07/08/21 07/08/21 4 Days Ago History 10-20 mg] ~07/04/21 Active Medications: Generic Name Dose Route Start Last Admin Trade Name Freq PRN Reason Stop Dose Admin Acetaminophen 650 mg 07/07/21 12:43 Acetaminophen 325 Mg Tab PO Q4H PRN Pain MILD(1-3)/Fever >100.5/AVINA Albuterol 2.5 mg 07/07/21 12:43 Albuterol 2.5 Mg/3 Ml Nebu IH Q4HRT PRN Shortness Of Breath Amlodipine Besylate 2.5 mg 07/08/21 10:00 07/10/21 09:39 Amlodipine 5 Mg Tab PO 2.5 mg QDAY [facility] Administration Aspirin 81 mg 07/09/21 10:00 07/10/21 09:38 Aspirin Ec 81 Mg Tab PO 81 mg QDAY [facility] Administration Atorvastatin Calcium 20 mg 07/07/21 22:00 07/09/21 22:41 Atorvastatin 20 Mg Tab PO 20 mg QHS [facility] Administration Dextrose 0 ml 07/07/21 19:51 Dextrose 10% *Hypoglycemia IV PRN PRN Hypoglycemia Famotidine 20 mg 07/08/21 10:00 07/10/21 09:39 Famotidine 20 Mg Tab PO 20 mg QDAY [facility] Administration Fluoxetine HCl 20 mg 07/08/21 10:00 07/10/21 09:39 Fluoxetine 20 Mg Cap PO 20 mg QDAY [facility] Administration Heparin Sodium (Porcine) 5,000 unit 07/09/21 14:30 07/10/21 05:57 Heparin 5,000 Unit/1 Ml Vial SUB-Q 5,000 unit Q8HR [facility] Administration Hydralazine HCl 50 mg 07/07/21 22:00 07/10/21 05:57 Hydralazine 25 Mg Tab PO 50 mg Q8HR [facility] Administration Hydromorphone HCl 0.5 mg 07/07/21 12:43 Hydromorphone 1 Mg/1 Ml Inj IV Q23H PRN Pain , Severe (7-10) Sodium Chloride 1,000 mls @ 125 mls/hr 07/07/21 12:45 07/10/21 09:49 Nacl 0.9% 1000 Ml IV 125 mls/hr DIRECT [facility] Administration Insulin Human Lispro 0 unit 07/08/21 00:00 07/10/21 05:56 Insulin Lispro 100 Unit/Ml SUB-Q Not Given Q6HR [facility] Protocol Metoprolol Tartrate 25 mg 07/08/21 22:00 07/10/21 09:39 Metoprolol Tartrate 25 Mg Tab PO 25 mg BID [facility] Administration Ondansetron HCl 4 mg 07/07/21 12:43 Ondansetron 4 Mg/2 Ml Inj IV Q8H PRN Nausea And Vomiting Oxycodone/Acetaminophen 1 tab 07/07/21 12:43 Oxycodone /Acetaminophen 5-325mg Tab PO Q16H PRN Pain, Moderate (4-6) Pregabalin 100 mg 07/07/21 22:00 07/10/21 09:40 Pregabalin 50 Mg Cap PO Not Given TID [facility] Quetiapine Fumarate 800 mg 07/08/21 18:00 07/09/21 18:00 Quetiapine 200 Mg Tab PO Not Given QPM [facility] Risperidone 0.25 mg 07/08/21 13:00 07/10/21 09:38 Risperidone 0.25 Mg Tab PO 0.25 mg BID [facility] Administration Sodium Chloride 10 ml 07/07/21 22:00 07/09/21 22:42 Sodium Chloride 0.9% 10 Ml Flush Syringe IV 10 ml BID [facility] Administration Sodium Chloride 10 ml 07/07/21 12:43 Sodium Chloride 0.9% 10 Ml Flush Syringe IV PRN PRN LINE FLUSH
--- NOTE | 2021-07-10 14:56 | Progress Note ---
Assessment and Plan Assessment and plan --SIRS (systemic inflammatory response syndrome) Covid negative -- Acute kidney injury (CARLOS) with acute tubular necrosis (ATN) IV fluid resuscitation therapy, repeat BMP in a.m. to monitor serum creatinine. Creatinine Worsening 09/13/20=27/1.9 07/07/21=36/3.0 07/08/21=38/3.2 07/09/21=47/3.7 07/10/21=58/4.7 Worsening Kidney function Family informed Will d/w Nephrology IV Fluids for now -- Uncontrolled diabetes mellitus Consistent carbohydrate diet, Accu-Chek, insulin protocol, IV fluid resusc itation therapy, hypoglycemia protocol. --Accelerated hypertension Monitor blood pressure every shift, continue medical management. Adjusted medication as needed -- Vascular dementia with behavioral disturbance/acute psychosis Verbal prompting, verbal redirection, benzodiazepine therapy as clinically indicated. Psych consulted and recommending inpatient psych therapy --Suspected 2019 novel coronavirus infection Coronavirus protocol: IV antibiotic therapy, supplemental oxygen, pulse oximet ry, vitamin C therapy, vitamin D therapy, zinc therapy, prophylactic anticoagulation. Ordered for COVID-19 PCR -- COVID-19 vaccination not done Patient is overdue for COVID-19 booster -- DVT prophylaxis SCD to bilateral lower extremities while in bed Subjective Date of service: 07/10/21 Principal diagnosis: carlos on ckd, acute psychosis Interval history: Assessment and Plan 71 YO Female with HTN, DM, CKD, MDD, DARIEL, OA, Vascular Dementia, Cerebral Atherosclerosis presents to ED for evaluation for diminished cognition. Patient was found down sitting on the floor beside her bed by family members. EMS was notified and transported to ER. All lab and imaging studies reviewed. CXR no infiltrates. Patient found to have systemic inflammatory response, acute kidney injury, metabolic encephalopathy, and uncontrolled diabetes mellitus. Patient admitted to medical floor and initiated on coronavirus protocol due to increased risk of worsening symptoms. Daily clinical course: 22; patient remains confused, not oriented to place or person. Being evaluated by psychiatry and recommending inpatient psych management. Renal function worsening, continue IV fluid. If no improvement will consult nephrology. Continue to follow clinically, Covid PCR test pending. 2: Renal function continued to decline, continue IV fluid, consult nephrology. Covid PCR still pending. Continue to follow clinically. Psych following. 2/4 Covid negative Creatinine Worsening 09/13/20=27/1.9 07/07/21=36/3.0 07/08/21=38/3.2 07/09/21=47/3.7 07/10/21=58/4.7 Worsening Kidney function Family informed Will d/w Nephrology IV Fluids for now Objective - Constitutional Vitals: Vital Signs - 12hr 07/10/21 07/10/21 07/10/21 04:24 05:57 09:39 Temperature 98.3 F Pulse Rate 78 78 88 Respiratory 18 Rate Blood Pressure 128/75 128/75 O2 Sat by Pulse 98 Oximetry 07/10/21 13:12 Temperature 98.3 F Pulse Rate 79 Respiratory 18 Rate Blood Pressure 105/56 O2 Sat by Pulse 95 Oximetry General appearance: Present: no acute distress, well-nourished - EENT Eyes: PERRL, EOM intact ENT: hearing intact, clear oral mucosa Ears: bilateral: normal - Neck Neck: supple, normal ROM - Respiratory Respiratory effort: normal Respiratory: bilateral: CTA - Breasts Breasts: normal - Cardiovascular Heart rate: 78 Rhythm: regular Heart Sounds: Present: S1 & S2. Absent: gallop, rub Extremities: pulses intact, No edema, normal color, Full ROM - Gastrointestinal General gastrointestinal: Present: soft, non-tender, non-distended, normal bowel sounds - Genitourinary Female genitourinary: normal - Integumentary Integumentary: clear, warm, dry - Musculoskeletal Musculoskeletal: 1, strength equal bilaterally - Neurologic Neurologic: moves all extremities - Psychiatric Psychiatric: memory intact, appropriate mood/affect, intact judgment & insight - Allied health notes Allied health notes reviewed: nursing - Labs CBC & Chem 7: 07/10/21 04:22 07/10/21 04:22 Labs: Abnormal lab results 07/09/21 07/10/21 07/10/21 Range/Units 23:23 04:22 04:22 RDW 15.8 H (13.2-15.2) % [place] % (Auto) 11.3 H (0.0-7.3) % [place] # (Auto) 1.1 H (0.0-0.8) K/mm3 Chloride 110.0 H (98-107) mmol/L Carbon Dioxide 15 L (22-30) mmol/L BUN 58 H (7-17) mg/dL Creatinine 4.7 H (0.6-1.2) mg/dL POC Glucose 297 H (70-105) mg/dL Calcium 8.0 L (8.4-10.2) mg/dL Albumin 3.4 L (3.9-5) g/dL 07/10/21 Range/Units 14:01 RDW (13.2-15.2) % [place] % (Auto) (0.0-7.3) % [place] # (Auto) (0.0-0.8) K/mm3 Chloride (98-107) mmol/L Carbon Dioxide (22-30) mmol/L BUN (7-17) mg/dL Creatinine (0.6-1.2) mg/dL POC Glucose 314 H (70-105) mg/dL Calcium (8.4-10.2) mg/dL Albumin (3.9-5) g/dL HEART Score - HEART Score Troponin: Troponin T < 0.010 ng/mL (0.00-0.029) 07/07/21 09:03
[2021-07-10] MEDS: QUEtiapine 200 MG TAB PO SCH (17:05)
[2021-07-11] MEDS: INSULIN LISPRO 100 UNIT/ML SUB-Q SCH ×5 (00:48→23:32)
[2021-07-11] MEDS: hydrALAZINE 25 MG TAB PO SCH ×3 (03:25→21:06)
[2021-07-11] MEDS: HEPARIN 5,000 UNIT/1 ML VIAL SUB-Q SCH ×3 (04:07→21:07)
[2021-07-11 05:32] LABS: Basophils % (Auto) 0.3 % (0.0-1.8); Eosinophils # (Auto) 0.2 K/mm3 (0.0-0.4); Eosinophils % (Auto) 2.6 % (0.0-4.3); Hematocrit 37.1 % (30.3-42.9); Hemoglobin 11.6 gm/dl (10.1-14.3); Lymphocytes # (Auto) 3.6 K/mm3 (1.2-5.4); Lymphocytes % (Auto) 43.7 % (13.4-35.0); Mean Corpuscular HGB Conc 31 % (30-34); Mean Corpuscular Volume 89 fl (79-97); Monocytes # (Auto) 0.9 K/mm3 (0.0-0.8); Monocytes % (Auto) 10.5 % (0.0-7.3); Platelet Count 282 K/mm3 (140-440); Red Blood Count 4.19 M/mm3 (3.65-5.03)
[2021-07-11 05:36] LABS: Alanine Aminotransferase 13 units/L (7-56); Albumin 3.6 g/dL (3.9-5); Blood Urea Nitrogen 65 mg/dL (7-17); Calcium 8.1 mg/dL (8.4-10.2); Hemolysis Index 13
[2021-07-11 05:40] LABS: BUN/Creatinine Ratio 13
--- NOTE | 2021-07-11 09:20 | Progress Note ---
Assessment and Plan Assessment and plan --SIRS (systemic inflammatory response syndrome) Covid negative -- Acute kidney injury (CARLOS) with acute tubular necrosis (ATN) IV fluid resuscitation therapy, repeat BMP in a.m. to monitor serum creatinine. Creatinine Worsening 09/13/20=27/1.9 07/07/21=36/3.0 07/08/21=38/3.2 07/09/21=47/3.7 07/10/21=58/4.7 07/11/21=65/4.9 Worsening Kidney function Family informed d/w Nephrology IV Fluids for now -- Uncontrolled diabetes mellitus Consistent carbohydrate diet, Accu-Chek, insulin protocol, IV fluid resuscitation therapy, hypoglycemia protocol. --Accelerated hypertension Monitor blood pressure every shift, continue medical management. Adjusted medication as needed -- Vascular dementia with behavioral disturbance/acute psychosis Verbal prompting, verbal redirection, benzodiazepine therapy as clinically indicated. Psych consulted and recommending inpatient psych therapy --Suspected 2019 novel coronavirus infection Coronavirus protocol: IV antibiotic therapy, supplemental oxygen, pulse oximetry, vitamin C therapy, vitamin D therapy, zinc therapy, prophylactic anticoagulation. Ordered for COVID-19 PCR -- COVID-19 vaccination not done Patient is overdue for COVID-19 booster -- DVT prophylaxis SCD to bilateral lower extremities while in bed Subjective Date of service: 07/11/21 Principal diagnosis: carlos on ckd, acute psychosis Interval history: Assessment and Plan 71 YO Female with HTN, DM, CKD, MDD, DARIEL, OA, Vascular Dementia, Cerebral Atherosclerosis presents to ED for evaluation for diminished cognition. Patient was found down sitting on the floor beside her bed by family members. EMS was notified and transported to ER. All lab and imaging studies reviewed. CXR no infiltrates. Patient found to have systemic inflammatory response, acute kidney injury, metabolic encephalopathy, and uncontrolled diabetes mellitus. Patient admitted to medical floor and initiated on coronavirus protocol due to increased risk of worsening symptoms. Daily clinical course: 2/2; patient remains confused, not oriented to place or person. Being evaluated by psychiatry and recommending inpatient psych management. Renal function worsening, continue IV fluid. If no improvement will consult nephrology. Continue to follow clinically, Covid PCR test pending. 07/09: Renal function continued to decline, continue IV fluid, consult nephrology. Covid PCR still pending. Continue to follow clinically. Psych following. 07/10 Covid negative Creatinine Worsening 09/13/20=27/1.9 07/07/21=36/3.0 07/08/21=38/3.2 07/09/21=47/3.7 07/10/21=58/4.7 07/11/21=65/4.9 Worsening Kidney function Family informed Will d/w Nephrology IV Fluids for now Objective - Constitutional Vitals: Vital Signs - 12hr 07/10/21 07/10/21 07/10/21 21:45 21:58 21:59 Temperature 98.4 F Pulse Rate 77 77 77 Respiratory 18 Rate Blood Pressure 109/61 109/61 109/61 O2 Sat by Pulse 97 Oximetry 07/10/21 07/11/21 07/11/21 22:00 04:57 06:00 Temperature 98.3 F Pulse Rate 83 83 Respiratory 17 18 Rate Blood Pressure 104/71 104/71 O2 Sat by Pulse 98 98 Oximetry General appearance: Present: no acute distress, well-nourished - EENT Eyes: PERRL, EOM intact ENT: hearing intact, clear oral mucosa Ears: bilateral: normal - Neck Neck: supple, normal ROM - Respiratory Respiratory effort: normal Respiratory: bilateral: CTA - Breasts Breasts: normal - Cardiovascular Heart rate: 78 Rhythm: regular Heart Sounds: Present: S1 & S2. Absent: gallop, rub Extremities: pulses intact, No edema, normal color, Full ROM - Gastrointestinal General gastrointestinal: Present: soft, non-tender, non-distended, normal bowel sounds - Genitourinary Female genitourinary: normal - Integumentary Integumentary: clear, warm, dry - Musculoskeletal Musculoskeletal: 1, strength equal bilaterally - Neurologic Neurologic: moves all extremities - Psychiatric Psychiatric: memory intact, appropriate mood/affect, intact judgment & insight - Labs CBC & Chem 7: 07/11/21 04:10 07/11/21 04:10 Labs: Abnormal lab results 07/10/21 07/10/21 07/10/21 Range/Units 14:01 16:44 21:22 RDW (13.2-15.2) % Lymph % (Auto) (13.4-35.0) % [place] % (Auto) (0.0-7.3) % [place] # (Auto) (0.0-0.8) K/mm3 Carbon Dioxide (22-30) mmol/L BUN (7-17) mg/dL Creatinine (0.6-1.2) mg/dL Glucose (65-100) mg/dL POC Glucose 314 H 132 H 176 H (70-105) mg/dL Calcium (8.4-10.2) mg/dL Albumin (3.9-5) g/dL 07/11/21 07/11/21 07/11/21 Range/Units 04:10 04:10 06:05 RDW 16.0 H (13.2-15.2) % Lymph % (Auto) 43.7 H (13.4-35.0) % [place] % (Auto) 10.5 H (0.0-7.3) % [place] # (Auto) 0.9 H (0.0-0.8) K/mm3 Carbon Dioxide 14 L (22-30) mmol/L BUN 65 H (7-17) mg/dL Creatinine 4.9 H (0.6-1.2) mg/dL Glucose 205 H (65-100) mg/dL POC Glucose 150 H (70-105) mg/dL Calcium 8.1 L (8.4-10.2) mg/dL Albumin 3.6 L (3.9-5) g/dL HEART Score - HEART Score Troponin: Troponin T < 0.010 ng/mL (0.00-0.029) 07/07/21 09:03
--- NOTE | 2021-07-11 09:25 | Progress Note ---
Subjective - Reason for Consult Consult date: 07/11/21 Reason for consult: AMS - Chief Complaint Chief complaint: The patient was seen this morning. she reports doing well. She is calm, alert and oriented x2. She reports sleep and appetite as good. She reports feeling depressed because she has not communicated with her family. She denies any current suicidal/homicidal ideation and denies hallucinations. REVIEW OF SYSTEMS Constitutional: Negative for weight loss ENT: Negative for stridor Respiratory: Negative for cough or hemoptysis All other systems reviewed and are negative MENTAL STATUS EXAMINATION General Appearance and Behavior: Age appropriate, good hygiene, wearing appropriate clothes. cooperative Cooperation: Cooperative Psychomotor Behavior: Psychomotor normal Mood: "ok" Affect and affective range: congruent with stated mood Thought Process: Goal directed Thought Content: Not suicidal Speech: Normal tone and pace Suicidal Ideation: Denies Homicidal Ideation: Denies Hallucinations: Denies Delusions: None Impulse Control: Limited Insight and Judgment: Limited insight and fair judgment Memory: Limited Attention: distracted Orientation: a/o x 2 (1) Dementia with Behavioral Disturbances Current Visit: Yes Status: Acute Treatment Plan Continue Risperidone 0.25mg po BID Medical: Per primary Sitter: Refer to primary Disposition:Do not recommend acute psychiatric inpatient treatment. Automotive Sales Manager will provide patient with out patient resources. Will sign off. Thanks. Case staffed with Dr. Elkins. Mental Status Exam - Vital signs Last Vital Signs Temp 98.3 F 07/11/21 04:57 Pulse 83 07/11/21 06:00 Resp 18 07/11/21 04:57 BP 104/71 07/11/21 06:00 Pulse Ox 98 07/11/21 04:57
[2021-07-11] MEDS: ASPIRIN EC 81 MG TAB PO SCH (11:21)
[2021-07-11] MEDS: FLUoxetine 20 MG CAP PO SCH (11:35)
[2021-07-11] MEDS: METOPROLOL TARTRATE 25 MG TAB PO SCH ×2 (11:35→21:06)
[2021-07-11] MEDS: amLODIPine 5 MG TAB PO SCH (11:36)
[2021-07-11] MEDS: FAMOTIDINE 20 MG TAB PO SCH (11:38)
[2021-07-11] MEDS: risperiDONE 0.25 MG TAB PO SCH (11:38)
[2021-07-11] MEDS: PREGABALIN 50 MG CAP PO SCH ×3 (15:09→21:05)
--- NOTE | 2021-07-11 15:25 | Progress Note ---
Assessment and Plan Impression: * CARLOS on ckd 3/4 * AMS * Acute Psychosis * volume depletion * DM * COVID PUI * polypharmacy * urinary retention Plan: * continue ivfs--on bicarb gtt * cr worse today but hopefully plateaued, follow up renal imaging reveals retention * need riddle cath placement * daily lytes and strict i/os * renal diet and ua noted * carlos likely due to volume depletion and hypoperfusion * multiple psy and antidepressant meds with numerous interaction, med list needs to be redefine * no renal indications for HOSE TENDER but will need if acidosis refractory and not improved but early next week Subjective Date of service: 07/11/21 Principal diagnosis: carlos on ckd, acute psychosis Interval history: labs and chart reviewed events noted Objective - Exam Narrative Exam: General appearance: Present: mild distress - EENT Eyes: Present: PERRL ENT: hearing intact, clear oral mucosa - Neck Neck: Present: supple, normal ROM - Respiratory Respiratory effort: normal Respiratory: bilateral: CTA - Cardiovascular Heart Sounds: Present: S1 & S2. Absent: rub, click - Extremities Extremities: pulses symmetrical, No edema Peripheral Pulses: within normal limits - Abdominal General gastrointestinal: Present: soft, non-tender, non-distended, normal bowel sounds Female genitourinary: Present: normal - Integumentary Integumentary: Present: clear, warm, dry - Musculoskeletal Musculoskeletal: gait normal, strength equal bilaterally - Psychiatric Psychiatric: appropriate mood/affect, intact judgment & insight - Neurologic Neurologic: CNII-XII intact, moves all extremities - Vital Signs Vital signs: Vital Signs - 12hr 07/11/21 07/11/21 07/11/21 04:57 06:00 11:36 Temperature 98.3 F Pulse Rate 83 83 73 Respiratory 18 Rate Blood Pressure 104/71 104/71 O2 Sat by Pulse 98 Oximetry 07/11/21 12:15 Temperature Pulse Rate 95 H Respiratory Rate Blood Pressure 131/74 O2 Sat by Pulse 98 Oximetry - Lab 07/11/21 04:10 07/11/21 04:10 Most recent lab results Calcium 8.1 mg/dL (8.4-10.2) L 07/11/21 04:10 Medications & Allergies - Medications Allergies/Adverse Reactions: Allergies No Known Allergies Allergy (Verified 07/08/21 09:14) Home Medications: Home Medications Medication Instructions Recorded Confirmed Last Taken Type Ondansetron [Zofran Odt] 4 mg PO Q8HR PRN #14 tab.rapdis 09/14/20 07/07/21 4 Days Ago Rx ~07/04/21 traMADoL [Ultram 50 MG tab] 50 mg PO Q4HR PRN #14 tablet 09/14/20 07/07/21 4 Days Ago Rx ~07/04/21 Baclofen [Lioresal] 5 mg PO TID 07/07/21 07/07/21 4 Days Ago History ~07/04/21 Duloxetine HCl [Drizalma Sprinkle] 30 mg PO QAM 07/07/21 07/07/21 4 Days Ago History ~07/04/21 FLUoxetine [PROzac] 20 mg PO QAM 07/07/21 07/08/21 4 Days Ago History ~07/04/21 Famotidine [Acid-Pep] 20 mg PO QDAY 07/07/21 07/07/21 4 Days Ago History ~07/04/21 Pregabalin [Lyrica] 100 mg PO TID 07/07/21 07/07/21 4 Days Ago History ~07/04/21 Tizanidine HCl 2 mg PO QDAY PRN 07/07/21 07/07/21 4 Days Ago History ~07/04/21 lisinopriL [Lisinopril] 10 mg PO QDAY 07/07/21 07/07/21 4 Days Ago History ~07/04/21 Aspirin EC [Halfprin EC] 81 mg PO QDAY 07/08/21 07/08/21 4 Days Ago History ~07/04/21 Hydralazine HCl 50 mg PO TID 07/08/21 07/08/21 4 Days Ago History ~07/04/21 Insulin Aspart Protam & Aspart 0 units SQ QAM 07/08/21 07/08/21 6 Days Ago History [NovoLOG Mix 70-30 Flexpen] ~07/02/21 Metoprolol [Lopressor] 25 mg PO QDAY 07/08/21 07/08/21 4 Days Ago History ~07/04/21 Quetiapine Fumarate [SEROquel] 800 mg PO QHS 07/08/21 07/08/21 4 Days Ago History ~07/04/21 Trazodone HCl 300 mg PO QHS 07/08/21 07/08/21 4 Days Ago History ~07/04/21 amLODIPine/ATORVASTATIN [Caduet 1 tab PO QDAY 07/08/21 07/08/21 4 Days Ago History 10-20 mg] ~07/04/21 Active Medications: Generic Name Dose Route Start Last Admin Trade Name Freq PRN Reason Stop Dose Admin Acetaminophen 650 mg 07/07/21 12:43 Acetaminophen 325 Mg Tab PO Q4H PRN Pain MILD(1-3)/Fever >100.5/AVINA Albuterol 2.5 mg 07/07/21 12:43 Albuterol 2.5 Mg/3 Ml Nebu IH Q4HRT PRN Shortness Of Breath Amlodipine Besylate 2.5 mg 07/08/21 10:00 07/11/21 11:36 Amlodipine 5 Mg Tab PO 2.5 mg QDAY WATSON Administration Aspirin 81 mg 07/09/21 10:00 07/11/21 11:21 Aspirin Ec 81 Mg Tab PO 81 mg QDAY WATSON Administration Atorvastatin Calcium 20 mg 07/07/21 22:00 07/10/21 21:46 Atorvastatin 20 Mg Tab PO 20 mg QHS WATSON Administration Dextrose 0 ml 07/07/21 19:51 Dextrose 10% *Hypoglycemia IV PRN PRN Hypoglycemia Famotidine 20 mg 07/08/21 10:00 07/11/21 11:38 Famotidine 20 Mg Tab PO 20 mg QDAY WATSON Administration Fluoxetine HCl 20 mg 07/08/21 10:00 07/11/21 11:35 Fluoxetine 20 Mg Cap PO 20 mg QDAY WATSON Administration Heparin Sodium (Porcine) 5,000 unit 07/09/21 14:30 07/11/21 06:01 Heparin 5,000 Unit/1 Ml Vial SUB-Q 5,000 unit Q8HR WATSON Administration Hydralazine HCl 50 mg 07/07/21 22:00 07/11/21 06:00 Hydralazine 25 Mg Tab PO Not Given Q8HR [facility] Hydromorphone HCl 0.5 mg 07/07/21 12:43 Hydromorphone 1 Mg/1 Ml Inj IV Q23H PRN Pain , Severe (7-10) Sodium Bicarbonate 150 meq/ 1,150 mls @ 125 mls/hr 07/10/21 12:00 Dextrose IV DIRECT [facility] Insulin Human Lispro 0 unit 07/08/21 00:00 02/05/22 06:14 Insulin Lispro 100 Unit/Ml SUB-Q 4 unit Q6HR WATSON Administration Protocol Metoprolol Tartrate 25 mg 07/08/21 22:00 07/11/21 11:35 Metoprolol Tartrate 25 Mg Tab PO 25 mg BID WATSON Administration Ondansetron HCl 4 mg 07/07/21 12:43 Ondansetron 4 Mg/2 Ml Inj IV Q8H PRN Nausea And Vomiting Oxycodone/Acetaminophen 1 tab 07/07/21 12:43 Oxycodone /Acetaminophen 5-325mg Tab PO Q16H PRN Pain, Moderate (4-6) Pregabalin 100 mg 07/07/21 22:00 07/10/21 20:35 Pregabalin 50 Mg Cap PO 100 mg TID WATSON Administration Quetiapine Fumarate 800 mg 07/08/21 18:00 07/10/21 17:05 Quetiapine 200 Mg Tab PO Not Given QPM WATSON Sodium Chloride 10 ml 07/07/21 22:00 07/11/21 11:20 Sodium Chloride 0.9% 10 Ml Flush Syringe IV 10 ml BID WATSON Administration Sodium Chloride 10 ml 07/07/21 12:43 07/11/21 11:41 Sodium Chloride 0.9% 10 Ml Flush Syringe IV 10 ml PRN PRN Administration LINE FLUSH
[2021-07-11] MEDS: QUEtiapine 200 MG TAB PO SCH ×2 (17:04→21:06)
[2021-07-11] MEDS: SODIUM BICARBONATE 650 MG TAB PO SCH ×2 (17:45→21:05)
[2021-07-11] MEDS: SODIUM BICARBONATE 150 MEQ in DEXTROSE 5% IN WATER 1,000 ML IV SCH (22:25)
[2021-07-12] MEDS: INSULIN LISPRO 100 UNIT/ML SUB-Q SCH ×5 (00:03→23:50)
[2021-07-12 04:58] LABS: Basophils % (Auto) 0.7 % (0.0-1.8); Eosinophils # (Auto) 0.2 K/mm3 (0.0-0.4); Eosinophils % (Auto) 3.2 % (0.0-4.3); Hematocrit 29.3 % (30.3-42.9); Hemoglobin 9.3 gm/dl (10.1-14.3); Lymphocytes # (Auto) 2.7 K/mm3 (1.2-5.4); Lymphocytes % (Auto) 42.7 % (13.4-35.0); Mean Corpuscular HGB Conc 32 % (30-34); Mean Corpuscular Volume 87 fl (79-97); Monocytes # (Auto) 0.7 K/mm3 (0.0-0.8); Monocytes % (Auto) 10.6 % (0.0-7.3); Platelet Count 210 K/mm3 (140-440); Red Blood Count 3.38 M/mm3 (3.65-5.03); Red Cell Distribution Width 15.4 % (13.2-15.2)
[2021-07-12 05:13] LABS: Alanine Aminotransferase 10 units/L (7-56); Blood Urea Nitrogen 68 mg/dL (7-17); Calcium 7.5 mg/dL (8.4-10.2); Hemolysis Index 4
[2021-07-12 05:22] LABS: BUN/Creatinine Ratio 14
[2021-07-12] MEDS: hydrALAZINE 25 MG TAB PO SCH ×3 (05:30→22:20)
[2021-07-12] MEDS: HEPARIN 5,000 UNIT/1 ML VIAL SUB-Q SCH ×3 (05:45→21:48)
[2021-07-12] MEDS: SODIUM BICARBONATE 150 MEQ in DEXTROSE 5% IN WATER 1,000 ML IV SCH (06:45)
[2021-07-12] MEDS: SODIUM BICARBONATE 650 MG TAB PO SCH ×2 (09:54→21:50)
[2021-07-12] MEDS: ASPIRIN EC 81 MG TAB PO SCH (09:54)
[2021-07-12] MEDS: FLUoxetine 20 MG CAP PO SCH (09:54)
[2021-07-12] MEDS: METOPROLOL TARTRATE 25 MG TAB PO SCH ×2 (09:55→22:19)
[2021-07-12] MEDS: FAMOTIDINE 20 MG TAB PO SCH (09:55)
[2021-07-12] MEDS: PREGABALIN 50 MG CAP PO SCH ×3 (09:55→21:48)
[2021-07-12] MEDS: amLODIPine 5 MG TAB PO SCH (09:55)
--- NOTE | 2021-07-12 14:56 | Progress Note ---
Assessment and Plan Assessment and plan --SIRS (systemic inflammatory response syndrome) Covid negative -- Acute kidney injury (CARLOS) with acute tubular necrosis (ATN) IV fluid resuscitation therapy, repeat BMP in a.m. to monitor serum creatinine. Creatinine Worsening 09/13/20=27/1.9 07/07/21=36/3.0 07/08/21=38/3.2 07/09/21=47/3.7 07/10/21=58/4.7 07/11/21=65/4.9 July 12, 2021 BUN/creatinine are equal to 68/4.7 Plateauing of creatinine levels Some improvement Intake output not being recorded Continue IV fluids Discussed with Dr. Burnett yesterday -- Uncontrolled diabetes mellitus Consistent carbohydrate diet, Accu-Chek, insulin protocol, IV fluid resuscitation therapy, hypoglycemia protocol. Insulin dosage adjusted --Accelerated hypertension Monitor blood pressure every shift, continue medical management. Adjusted medication as needed -- Vascular dementia with behavioral disturbance/acute psychosis Verbal prompting, verbal redirection, benzodiazepine therapy as clinically indicated. Psych consulted and recommending inpatient psych therapy --Suspected 2019 novel coronavirus infection Covid PCR negative -- COVID-19 vaccination not done Patient is overdue for COVID-19 booster -- DVT prophylaxis SCD to bilateral lower extremities while in bed Subjective Date of service: 07/12/21 Principal diagnosis: carlos on ckd, acute psychosis Interval history: Assessment and Plan 71 YO Female with HTN, DM, CKD, MDD, DARIEL, OA, Vascular Dementia, Cerebral Atherosclerosis presents to ED for evaluation for diminished cognition. Patient was found down sitting on the floor beside her bed by family members. EMS was notified and transported to ER. All lab and imaging studies reviewed. CXR no infiltrates. Patient found to have systemic inflammatory response, acute kidney injury, metabolic encephalopathy, and uncontrolled diabetes mellitus. Patient admitted to medical floor and initiated on coronavirus protocol due to increased risk of worsening symptoms. Daily clinical course: 2/2; patient remains confused, not oriented to place or person. Being evaluated by psychiatry and recommending inpatient psych management. Renal function worsening, continue IV fluid. If no improvement will consult nephrology. Continue to follow clinically, Covid PCR test pending. 07/09: Renal function continued to decline, continue IV fluid, consult nephrology. Covid PCR still pending. Continue to follow clinically. Psych following. 07/10 Covid negative Creatinine Worsening 09/13/20=27/1.9 07/07/21=36/3.0 07/08/21=38/3.2 07/09/21=47/3.7 07/10/21=58/4.7 July 11 2021 07/11/21=65/4.9 July 12, 2021 07/12/2021= 68/4.7 Some improvement over the last 24 hours Intake output not being recorded Objective - Constitutional Vitals: Vital Signs - 12hr 07/12/21 07/12/21 07/12/21 05:05 08:50 08:56 Temperature 98.2 F 97.9 F Pulse Rate 60 66 Respiratory 18 18 Rate Blood Pressure 93/57 Blood Pressure 114/67 [Right] O2 Sat by Pulse 95 97 97 Oximetry 07/12/21 07/12/21 07/12/21 09:55 11:46 14:43 Temperature Pulse Rate Respiratory Rate Blood Pressure 116/74 97/57 98/67 Blood Pressure [Right] O2 Sat by Pulse Oximetry General appearance: Present: no acute distress, well-nourished - EENT Eyes: PERRL, EOM intact ENT: hearing intact, clear oral mucosa Ears: bilateral: normal - Neck Neck: supple, normal ROM - Respiratory Respiratory effort: normal Respiratory: bilateral: CTA - Breasts Breasts: normal - Cardiovascular Heart rate: 78 Rhythm: regular Heart Sounds: Present: S1 & S2. Absent: gallop, rub Extremities: pulses intact, No edema, normal color, Full ROM - Gastrointestinal General gastrointestinal: Present: soft, non-tender, non-distended, normal bowel sounds - Genitourinary Female genitourinary: normal - Integumentary Integumentary: clear, warm, dry - Musculoskeletal Musculoskeletal: 1, strength equal bilaterally - Neurologic Neurologic: moves all extremities - Psychiatric Psychiatric: memory intact, appropriate mood/affect, intact judgment & insight - Allied health notes Allied health notes reviewed: nursing, case management - Labs CBC & Chem 7: 07/12/21 04:18 07/12/21 04:18 Labs: Abnormal lab results 07/11/21 07/11/21 07/12/21 Range/Units 17:09 23:08 04:18 RBC 3.38 L (3.65-5.03) M/mm3 Hgb 9.3 L (10.1-14.3) gm/dl Hct 29.3 L D (30.3-42.9) % MCH 27 L (28-32) pg RDW 15.4 H (13.2-15.2) % Lymph % (Auto) 42.7 H (13.4-35.0) % [place] % (Auto) 10.6 H (0.0-7.3) % Sodium (137-145) mmol/L Potassium (3.6-5.0) mmol/L Carbon Dioxide (22-30) mmol/L BUN (7-17) mg/dL Creatinine (0.6-1.2) mg/dL Glucose (65-100) mg/dL POC Glucose 194 H 229 H (70-105) mg/dL Calcium (8.4-10.2) mg/dL Total Protein (6.3-8.2) g/dL Albumin (3.9-5) g/dL 07/12/21 07/12/21 07/12/21 Range/Units 04:18 05:03 11:56 RBC (3.65-5.03) M/mm3 Hgb (10.1-14.3) gm/dl Hct (30.3-42.9) % MCH (28-32) pg RDW (13.2-15.2) % Lymph % (Auto) (13.4-35.0) % [place] % (Auto) (0.0-7.3) % Sodium 136 L (137-145) mmol/L Potassium 3.5 L (3.6-5.0) mmol/L Carbon Dioxide 19 L (22-30) mmol/L BUN 68 H (7-17) mg/dL Creatinine 4.7 H (0.6-1.2) mg/dL Glucose 144 H (65-100) mg/dL POC Glucose 124 H 265 H (70-105) mg/dL Calcium 7.5 L (8.4-10.2) mg/dL Total Protein 5.2 L D (6.3-8.2) g/dL Albumin 3.0 L (3.9-5) g/dL HEART Score - HEART Score Troponin: Troponin T < 0.010 ng/mL (0.00-0.029) 07/07/21 09:03
--- NOTE | 2021-07-12 15:21 | Progress Note ---
Assessment and Plan Impression: * CARLOS on ckd 3/4 * AMS * Acute Psychosis * volume depletion * DM * COVID PUI * polypharmacy * urinary retention Plan: * continue ivfs--change to NS * continue po sodium bicarb * follow up crcl * cr stable today but hopefully plateaued, follow up renal imaging reveals retention * s/p riddle cath placement --i/os still not being recorded * daily lytes and strict i/os * renal diet and ua noted * carlos likely due to volume depletion and hypoperfusion * multiple psy and antidepressant meds with numerous interaction, med list needs to be redefine * no renal indications for C[employer] but will need if acidosis refractory and not improved but early next week Subjective Date of service: 07/12/21 Principal diagnosis: carlos on ckd, acute psychosis Interval history: labs and chart reviewed events noted Objective - Exam Narrative Exam: General appearance: Present: mild distress - EENT Eyes: Present: PERRL ENT: hearing intact, clear oral mucosa - Neck Neck: Present: supple, normal ROM - Respiratory Respiratory effort: normal Respiratory: bilateral: CTA - Cardiovascular Heart Sounds: Present: S1 & S2. Absent: rub, click - Extremities Extremities: pulses symmetrical, No edema Peripheral Pulses: within normal limits - Abdominal General gastrointestinal: Present: soft, non-tender, non-distended, normal bowel sounds Female genitourinary: Present: normal - Integumentary Integumentary: Present: clear, warm, dry - Musculoskeletal Musculoskeletal: gait normal, strength equal bilaterally - Psychiatric Psychiatric: appropriate mood/affect, intact judgment & insight - Neurologic Neurologic: CNII-XII intact, moves all extremities - Vital Signs Vital signs: Vital Signs - 12hr 07/12/21 07/12/21 07/12/21 05:05 08:50 08:56 Temperature 98.2 F 97.9 F Pulse Rate 60 66 Respiratory 18 18 Rate Blood Pressure 93/57 Blood Pressure 114/67 [Right] O2 Sat by Pulse 95 97 97 Oximetry 07/12/21 07/12/21 07/12/21 09:55 11:46 14:43 Temperature Pulse Rate Respiratory Rate Blood Pressure 116/74 97/57 98/67 Blood Pressure [Right] O2 Sat by Pulse Oximetry - Lab 07/12/21 04:18 07/12/21 04:18 Most recent lab results Calcium 7.5 mg/dL (8.4-10.2) L 07/12/21 04:18 Medications & Allergies - Medications Allergies/Adverse Reactions: Allergies No Known Allergies Allergy (Verified 07/08/21 09:14) Home Medications: Home Medications Medication Instructions Recorded Confirmed Last Taken Type Ondansetron [Zofran Odt] 4 mg PO Q8HR PRN #14 tab.rapdis 09/14/20 07/07/21 4 Days Ago Rx ~07/04/21 traMADoL [Ultram 50 MG tab] 50 mg PO Q4HR PRN #14 tablet 09/14/20 07/07/21 4 Days Ago Rx ~07/04/21 Baclofen [Lioresal] 5 mg PO TID 07/07/21 07/07/21 4 Days Ago History ~07/04/21 Duloxetine HCl [Drizalma Sprinkle] 30 mg PO QAM 07/07/21 07/07/21 4 Days Ago History ~07/04/21 FLUoxetine [PROzac] 20 mg PO QAM 07/07/21 07/08/21 4 Days Ago History ~07/04/21 Famotidine [Acid-Pep] 20 mg PO QDAY 07/07/21 07/07/21 4 Days Ago History ~07/04/21 Pregabalin [Lyrica] 100 mg PO TID 07/07/21 07/07/21 4 Days Ago History ~07/04/21 Tizanidine HCl 2 mg PO QDAY PRN 07/07/21 07/07/21 4 Days Ago History ~07/04/21 lisinopriL [Lisinopril] 10 mg PO QDAY 07/07/21 07/07/21 4 Days Ago History ~07/04/21 Aspirin EC [Halfprin EC] 81 mg PO QDAY 07/08/21 07/08/21 4 Days Ago History ~07/04/21 Hydralazine HCl 50 mg PO TID 07/08/21 07/08/21 4 Days Ago History ~07/04/21 Insulin Aspart Protam & Aspart 0 units SQ QAM 07/08/21 07/08/21 6 Days Ago History [NovoLOG Mix 70-30 Flexpen] ~07/02/21 Metoprolol [Lopressor] 25 mg PO QDAY 07/08/21 07/08/21 4 Days Ago History ~07/04/21 Quetiapine Fumarate [SEROquel] 800 mg PO QHS 07/08/21 07/08/21 4 Days Ago History ~07/04/21 Trazodone HCl 300 mg PO QHS 07/08/21 07/08/21 4 Days Ago History ~07/04/21 amLODIPine/ATORVASTATIN [Caduet 1 tab PO QDAY 07/08/21 07/08/21 4 Days Ago History 10-20 mg] ~07/04/21 Active Medications: Generic Name Dose Route Start Last Admin Trade Name Freq PRN Reason Stop Dose Admin Acetaminophen 650 mg 07/07/21 12:43 Acetaminophen 325 Mg Tab PO Q4H PRN Pain MILD(1-3)/Fever >100.5/AVINA Albuterol 2.5 mg 07/07/21 12:43 Albuterol 2.5 Mg/3 Ml Nebu IH Q4HRT PRN Shortness Of Breath Amlodipine Besylate 2.5 mg 07/08/21 10:00 07/12/21 09:55 Amlodipine 5 Mg Tab PO Not Given QDAY WATSON Aspirin 81 mg 07/09/21 10:00 07/12/21 09:54 Aspirin Ec 81 Mg Tab PO 81 mg QDAY WATSON Administration Atorvastatin Calcium 20 mg 07/07/21 22:00 07/11/21 21:06 Atorvastatin 20 Mg Tab PO 20 mg QHS WATSON Administration Dextrose 0 ml 07/07/21 19:51 Dextrose 10% *Hypoglycemia IV PRN PRN Hypoglycemia Famotidine 20 mg 07/08/21 10:00 07/12/21 09:55 Famotidine 20 Mg Tab PO 20 mg QDAY WATSON Administration Fluoxetine HCl 20 mg 07/08/21 10:00 07/12/21 09:54 Fluoxetine 20 Mg Cap PO 20 mg QDAY WATSON Administration Heparin Sodium (Porcine) 5,000 unit 07/09/21 14:30 07/12/21 13:32 Heparin 5,000 Unit/1 Ml Vial SUB-Q 5,000 unit Q8HR WATSON Administration Hydralazine HCl 50 mg 07/07/21 22:00 07/12/21 14:43 Hydralazine 25 Mg Tab PO Not Given Q8HR WATSON Hydromorphone HCl 0.5 mg 07/07/21 12:43 Hydromorphone 1 Mg/1 Ml Inj IV Q23H PRN Pain , Severe (7-10) Sodium Chloride 1,000 mls @ 125 mls/hr 07/12/21 15:30 Nacl 0.9% 1000 Ml IV DIRECT WATSON Insulin Human Lispro 0 unit 07/08/21 00:00 07/12/21 13:32 Insulin Lispro 100 Unit/Ml SUB-Q 9 unit Q6HR WATSON Administration Protocol Metoprolol Tartrate 25 mg 07/08/21 22:00 07/12/21 09:55 Metoprolol Tartrate 25 Mg Tab PO 25 mg BID WATSON Administration Ondansetron HCl 4 mg 07/07/21 12:43 Ondansetron 4 Mg/2 Ml Inj IV Q8H PRN Nausea And Vomiting Oxycodone/Acetaminophen 1 tab 07/07/21 12:43 Oxycodone /Acetaminophen 5-325mg Tab PO Q16H PRN Pain, Moderate (4-6) Pregabalin 100 mg 07/07/21 22:00 07/12/21 14:42 Pregabalin 50 Mg Cap PO Not Given TID [facility] Quetiapine Fumarate 800 mg 07/08/21 18:00 07/11/21 21:06 Quetiapine 200 Mg Tab PO Not Given QPM WATSON Sodium Bicarbonate 1,300 mg 07/11/21 16:00 07/12/21 09:54 Sodium Bicarbonate 650 Mg Tab PO 1,300 mg BID WATSON Administration Sodium Chloride 10 ml 07/07/21 22:00 07/12/21 09:56 Sodium Chloride 0.9% 10 Ml Flush Syringe IV 10 ml BID WATSON Administration Sodium Chloride 10 ml 07/07/21 12:43 07/11/21 11:41 Sodium Chloride 0.9% 10 Ml Flush Syringe IV 10 ml PRN PRN Administration LINE FLUSH
[2021-07-12] MEDS: QUEtiapine 200 MG TAB PO SCH (17:59)
[2021-07-12] MEDS: SODIUM CHLORIDE 0.9% 1000 ML 1,000 ML IV SCH (18:00)
[2021-07-12] MEDS ORDERED: ONDANSETRON 4 MG/2 ML INJ IV PRN (23:38)
[2021-07-12] MEDS ORDERED: ACETAMINOPHEN 325 MG TAB PO PRN (23:38)
[2021-07-13] MEDS: INSULIN LISPRO 100 UNIT/ML SUB-Q SCH ×4 (00:40→17:21)
[2021-07-13 05:03] LABS: Basophils % (Auto) 0.5 % (0.0-1.8); Eosinophils # (Auto) 0.2 K/mm3 (0.0-0.4); Eosinophils % (Auto) 2.3 % (0.0-4.3); Hematocrit 30.1 % (30.3-42.9); Hemoglobin 9.6 gm/dl (10.1-14.3); Lymphocytes # (Auto) 3.3 K/mm3 (1.2-5.4); Lymphocytes % (Auto) 35.8 % (13.4-35.0); Mean Corpuscular HGB Conc 32 % (30-34); Mean Corpuscular Volume 87 fl (79-97); Monocytes % (Auto) 10.6 % (0.0-7.3); Platelet Count 248 K/mm3 (140-440); Red Blood Count 3.47 M/mm3 (3.65-5.03); Red Cell Distribution Width 15.3 % (13.2-15.2)
[2021-07-13 05:13] LABS: Alanine Aminotransferase 12 units/L (7-56); Albumin 3.1 g/dL (3.9-5); Blood Urea Nitrogen 63 mg/dL (7-17); Calcium 7.3 mg/dL (8.4-10.2); Hemolysis Index 1
[2021-07-13 05:25] LABS: BUN/Creatinine Ratio 16
[2021-07-13] MEDS: hydrALAZINE 25 MG TAB PO SCH ×3 (06:07→23:33)
[2021-07-13] MEDS: HEPARIN 5,000 UNIT/1 ML VIAL SUB-Q SCH ×3 (06:07→23:37)
[2021-07-13] MEDS: SODIUM CHLORIDE 0.9% 1000 ML 1,000 ML IV SCH ×2 (06:09→15:06)
[2021-07-13] MEDS ORDERED: MORPHINE 4 MG/1 ML INJ IV ONE (06:54)
[2021-07-13] MEDS ORDERED: MORPHINE 2 MG/1 ML INJ IV SCH (07:30)
--- NOTE | 2021-07-13 09:31 | Progress Note ---
Assessment and Plan Assessment and plan: --SIRS (systemic inflammatory response syndrome) Covid negative -- Acute kidney injury (CARLOS) with acute tubular necrosis (ATN) IV fluid resuscitation therapy, repeat BMP in a.m. to monitor serum creatinine. Creatinine Worsening 09/13/20=27/1.9 baseline 07/07/21=3.0-4.7-4.9 -4.0 today Nephrology following No indication for replacement therapy Input output monitoring Continue IV fluids, supportive care -- Uncontrolled diabetes mellitus Consistent carbohydrate diet, Accu-Chek, insulin protocol, IV fluid resuscitation therapy, hypoglycemia protocol. Insulin dosage adjusted, well controlled --Accelerated hypertension Continue current management, closely monitor blood pressures Adjust medications as needed -- Vascular dementia with behavioral disturbance/acute psychosis Verbal prompting, verbal redirection, benzodiazepine therapy as clinically indicated. Psych evaluated the patient, did not recommend inpatient psych management --COVID-19/fallon PCR test negative --Moderate protein calorie malnutrition; Nutrition supplements, supportive care Nutrition consult if needed -- DVT prophylaxis SCD to bilateral lower extremities while in bed Closely monitor patient and adjust management as needed Plan of care reviewed with the patient and her nurse Subjective Date of service: 07/12/21 Principal diagnosis: carlos on ckd, acute psychosis Interval history: Assessment and Plan 71 YO Female with HTN, DM, CKD, MDD, DARIEL, OA, Vascular Dementia, Cerebral Atherosclerosis presents to ED for evaluation for diminished cognition. Patient was found down sitting on the floor beside her bed by family members. EMS was notified and transported to ER. All lab and imaging studies reviewed. CXR no infiltrates. Patient found to have systemic inflammatory response, acute kidney injury, metabolic encephalopathy, and uncontrolled diabetes mellitus. Patient admitted to medical floor and initiated on coronavirus protocol due to increased risk of worsening symptoms. However [place] PCR test was negative Daily clinical course: 2; patient remains confused, not oriented to place or person. Being evaluated by psychiatry and recommending inpatient psych management. Renal function worsening, continue IV fluid. If no improvement will consult nephrology. Continue to follow clinically, Covid PCR test pending. 2: Renal function continued to decline, continue IV fluid, consult nephrology. Covid PCR still pending. Continue to follow clinically. Psych following. 2ovid negative,Creatinine Worsening 09/13/20=27/1.9 07/07/21=36/3.0 07/08/21=38/3.2 07/09/21=47/3.7 07/10/21=58/4.7 07/11; BUN/creatinine 65/4.9 ; 68/4.7 07/13/21; patient's creatinine is 4.0, closely monitor Follow neurology recommendations. Follow ankle x-ray, consult orthopedic surgeon if needed History Interval history: I have seen and examined the patient at the bedside Patient's chart and medications reviewed Patient with acute kidney injury probably due to vasomotor nephropathy With worsening renal function, followed by nephrology Patient feels slightly better however she reports that she slipped and fell and twisted the ankle in her room this morning Patient had x-ray ankle this morning, pending report. Hospitalist Physical - Constitutional Vitals: Temp Pulse Resp BP Pulse Ox 98.3 F 79 18 135/65 94 07/13/21 05:26 07/13/21 06:07 07/13/21 05:26 07/13/21 06:07 07/13/21 05:26 General appearance: Present: no acute distress, well-nourished, obese - EENT Eyes: Present: PERRL, EOM intact - Neck Neck: Present: supple, normal ROM - Respiratory Respiratory effort: normal Respiratory: bilateral: diminished, negative: rales, rhonchi, wheezing - Cardiovascular Rhythm: regular Heart Sounds: Present: S1 & S2 - Extremities Extremities: no ischemia, No edema, abnormal (Mild swelling left ankle, tender to palpation) - Abdominal General gastrointestinal: soft, non-tender, non-distended, normal bowel sounds - Integumentary Integumentary: Present: clear, warm - Psychiatric Psychiatric: appropriate mood/affect, cooperative - Neurologic Neurologic: moves all extremities HEART Score - HEART Score Troponin: Troponin T < 0.010 ng/mL (0.00-0.029) 07/07/21 09:03 Results - Labs CBC & Chem 7: 07/13/21 04:11 07/13/21 04:11 Labs: Laboratory Last Values WBC 9.3 K/mm3 (4.5-11.0) 07/13/21 04:11 RBC 3.47 M/mm3 (3.65-5.03) L 07/13/21 04:11 Hgb 9.6 gm/dl (10.1-14.3) L 07/13/21 04:11 Hct 30.1 % (30.3-42.9) L 07/13/21 04:11 MCV 87 fl (79-97) 07/13/21 04:11 MCH 28 pg (28-32) 07/13/21 04:11 MCHC 32 % (30-34) 07/13/21 04:11 RDW 15.3 % (13.2-15.2) H 07/13/21 04:11 Plt Count 248 K/mm3 (140-440) 07/13/21 04:11 Lymph % (Auto) 35.8 % (13.4-35.0) H 07/13/21 04:11 [place] % (Auto) 10.6 % (0.0-7.3) H 07/13/21 04:11 Eos % (Auto) 2.3 % (0.0-4.3) 07/13/21 04:11 Baso % (Auto) 0.5 % (0.0-1.8) 07/13/21 04:11 Lymph # (Auto) 3.3 K/mm3 (1.2-5.4) 07/13/21 04:11 [place] # (Auto) 1.0 K/mm3 (0.0-0.8) H 07/13/21 04:11 Eos # (Auto) 0.2 K/mm3 (0.0-0.4) 07/13/21 04:11 Baso # (Auto) 0.0 K/mm3 (0.0-0.1) 07/13/21 04:11 Seg Neutrophils % 50.8 % (40.0-70.0) 07/13/21 04:11 Seg Neutrophils # 4.7 K/mm3 (1.8-7.7) 07/13/21 04:11 PT 13.6 Sec. (12.2-14.9) 07/07/21 09:03 INR 0.94 (0.87-1.13) 07/07/21 09:03 APTT 28.3 Sec. (24.2-36.6) 07/07/21 09:03 D-Dimer 1937.58 ng/mlDDU (0-234) H 07/07/21 13:27 VBG pH 7.276 (7.320-7.420) L 07/07/21 09:03 Sodium 141 mmol/L (137-145) 07/13/21 04:11 Potassium 3.5 mmol/L (3.6-5.0) L 07/13/21 04:11 Chloride 102.8 mmol/L (98-107) 07/13/21 04:11 Carbon Dioxide 24 mmol/L (22-30) 07/13/21 04:11 Anion Gap 18 mmol/L 07/13/21 04:11 BUN 63 mg/dL (7-17) H 07/13/21 04:11 Creatinine 4.0 mg/dL (0.6-1.2) H 07/13/21 04:11 Estimated GFR 13 ml/min 07/13/21 04:11 BUN/Creatinine Ratio 16 % 07/13/21 04:11 Glucose 61 mg/dL (65-100) L 07/13/21 04:11 POC Glucose 86 mg/dL (70-105) 07/13/21 05:23 Calcium 7.3 mg/dL (8.4-10.2) L 07/13/21 04:11 Total Bilirubin < 0.20 mg/dL (0.1-1.2) 07/13/21 04:11 AST 9 units/L (5-40) 07/13/21 04:11 ALT 12 units/L (7-56) 07/13/21 04:11 Alkaline Phosphatase 59 units/L (35-129) 07/13/21 04:11 Ammonia 22.0 umol/L (25-60) L 07/07/21 09:03 Lactate Dehydrogenase 428 units/L (91-180) H 07/07/21 13:27 Total Creatine Kinase 100 units/L (30-135) 07/07/21 09:03 CK-MB (CK-2) 2.9 ng/mL (0.0-4.0) 07/07/21 09:03 CK-MB (CK-2) Rel Index 2.9 (0-4) 07/07/21 09:03 Troponin T < 0.010 ng/mL (0.00-0.029) 07/07/21 09:03 C-Reactive Protein 0.00 mg/dL (0.00-1.30) 07/07/21 13:27 Total Protein 5.5 g/dL (6.3-8.2) L 07/13/21 04:11 Albumin 3.1 g/dL (3.9-5) L 07/13/21 04:11 Albumin/Globulin Ratio 1.3 % 07/13/21 04:11 Procalcitonin < 0.05 ng/mL (<0.15) 07/07/21 13:27 TSH 1.880 mlU/mL (0.270-4.200) 07/07/21 09:03 Free T4 1.31 ng/dL (0.76-1.46) 07/07/21 09:03 Urine Color Yellow (Yellow) 07/07/21 Unknown Urine Turbidity Hazy (Clear) 07/07/21 Unknown Urine pH 5.0 (5.0-7.0) 07/07/21 Unknown Ur Specific [place] 1.016 (1.003-1.030) 07/07/21 Unknown Urine Protein >500 mg/dL (Negative) 07/07/21 Unknown Urine Glucose (UA) Neg mg/dL (Negative) 07/07/21 Unknown Urine Ketones 20 mg/dL (Negative) 07/07/21 Unknown Urine Blood Neg (Negative) 07/07/21 Unknown Urine Nitrite Neg (Negative) 07/07/21 Unknown Urine Bilirubin Neg (Negative) 07/07/21 Unknown Urine Urobilinogen < 2.0 mg/dL (<2.0) 07/07/21 Unknown Ur Leukocyte Esterase Neg (Negative) 07/07/21 Unknown Urine WBC (Auto) 10.0 /HPF (0.0-6.0) H 07/07/21 Unknown Urine RBC (Auto) 4.0 /HPF (0.0-6.0) 07/07/21 Unknown U Epithel Cells (Auto) < 1.0 /HPF (0-13.0) 07/07/21 Unknown Urine Opiates Screen Negative 07/07/21 Unknown Urine Methadone Screen Negative 07/07/21 Unknown Ur Barbiturates Screen Negative 07/07/21 Unknown Ur Phencyclidine Scrn Negative 07/07/21 Unknown Ur Amphetamines Screen Negative 07/07/21 Unknown U Benzodiazepines Scrn Negative 07/07/21 Unknown Urine Cocaine Screen Negative 07/07/21 Unknown U Marijuana (THC) Screen Negative 07/07/21 Unknown Drugs of Abuse Note Disclamer 07/07/21 Unknown Plasma/Serum Alcohol < 0.01 % (0-0.07) 07/07/21 09:03 Coronavirus (PCR) Negative (Negative) 07/09/21 11:45 [place]/IV: Voiding Method Indwelling Catheter Active Medications - Current Medications Current Medications: Generic Name Dose Route Start Last Admin Trade Name Freq PRN Reason Stop Dose Admin Acetaminophen 650 mg 07/07/21 12:43 Acetaminophen 325 Mg Tab PO Q4H PRN Pain MILD(1-3)/Fever >100.5/AVINA Albuterol 2.5 mg 07/07/21 12:43 Albuterol 2.5 Mg/3 Ml Nebu IH Q4HRT PRN Shortness Of Breath Amlodipine Besylate 2.5 mg 07/08/21 10:00 07/12/21 09:55 Amlodipine 5 Mg Tab PO Not Given QDAY WATSON Aspirin 81 mg 07/09/21 10:00 07/12/21 09:54 Aspirin Ec 81 Mg Tab PO 81 mg QDAY WATSON Administration Atorvastatin Calcium 20 mg 07/07/21 22:00 07/12/21 21:49 Atorvastatin 20 Mg Tab PO 20 mg QHS WATSON Administration Dextrose 0 ml 07/07/21 19:51 Dextrose 10% *Hypoglycemia IV PRN PRN Hypoglycemia Famotidine 20 mg 07/08/21 10:00 07/12/21 09:55 Famotidine 20 Mg Tab PO 20 mg QDAY WATSON Administration Fluoxetine HCl 20 mg 07/08/21 10:00 07/12/21 09:54 Fluoxetine 20 Mg Cap PO 20 mg QDAY WATSON Administration Heparin Sodium (Porcine) 5,000 unit 07/09/21 14:30 07/13/21 06:07 Heparin 5,000 Unit/1 Ml Vial SUB-Q 5,000 unit Q8HR WATSON Administration Hydralazine HCl 50 mg 07/07/21 22:00 07/13/21 06:07 Hydralazine 25 Mg Tab PO 50 mg Q8HR WATSON Administration Hydromorphone HCl 0.5 mg 07/07/21 12:43 07/12/21 22:27 Hydromorphone 1 Mg/1 Ml Inj IV 0.5 mg Q23H PRN Administration Pain , Severe (7-10) Sodium Chloride 1,000 mls @ 125 mls/hr 07/12/21 16:00 07/13/21 06:09 Nacl 0.9% 1000 Ml IV 125 mls/hr DIRECT WATSON Administration Insulin Human Lispro 0 unit 07/08/21 00:00 07/13/21 05:57 Insulin Lispro 100 Unit/Ml SUB-Q Not Given Q6HR [facility] Protocol Metoprolol Tartrate 25 mg 07/08/21 22:00 07/12/21 22:19 Metoprolol Tartrate 25 Mg Tab PO 25 mg BID WATSON Administration Morphine Sulfate 2 mg 07/13/21 07:30 07/13/21 07:31 Morphine 2 Mg/1 Ml Inj IV 07/13/21 10:30 2 mg ONCE@0730 WATSON Administration Ondansetron HCl 4 mg 07/07/21 12:43 Ondansetron 4 Mg/2 Ml Inj IV Q8H PRN Nausea And Vomiting Oxycodone/Acetaminophen 1 tab 07/07/21 12:43 Oxycodone /Acetaminophen 5-325mg Tab PO Q16H PRN Pain, Moderate (4-6) Pregabalin 100 mg 07/07/21 22:00 07/12/21 21:48 Pregabalin 50 Mg Cap PO 100 mg TID WATSON Administration Quetiapine Fumarate 800 mg 07/08/21 18:00 07/12/21 17:59 Quetiapine 200 Mg Tab PO Not Given QPM WATSON Sodium Bicarbonate 1,300 mg 07/11/21 16:00 07/12/21 21:50 Sodium Bicarbonate 650 Mg Tab PO 1,300 mg BID WATSON Administration Sodium Chloride 10 ml 07/07/21 22:00 07/12/21 21:53 Sodium Chloride 0.9% 10 Ml Flush Syringe IV 10 ml BID WATSON Administration Sodium Chloride 10 ml 07/07/21 12:43 07/11/21 11:41 Sodium Chloride 0.9% 10 Ml Flush Syringe IV 10 ml PRN PRN Administration LINE FLUSH
--- NOTE | 2021-07-13 10:19 | Progress Note ---
Assessment and Plan Impression: * CARLOS on ckd 3/4 * AMS * Acute Psychosis * volume depletion * DM * COVID PUI * polypharmacy * urinary retention Plan: * Renal function is slowly improving. She is also currently nonoliguric * Acidosis has been corrected. bicarbonate drip has been discontinued. * continue po sodium bicarb * cr stable today but hopefully plateaued, follow up renal imaging reveals retention * s/p riddle cath placement * daily lytes and strict i/os * renal diet and ua noted * carlos likely due to volume depletion and hypoperfusion * multiple psy and antidepressant meds with numerous interaction, med list needs to be redefine * No indication for renal replacement therapy today * Check 24-hour urine for creatinine clearance Subjective Date of service: 07/13/21 Principal diagnosis: carlos on ckd, acute psychosis Interval history: Patient is comfortable today. Denies any shortness of breath. No nausea vomiting or diarrhea. Objective - Vital Signs Vital signs: Vital Signs - 12hr 07/12/21 07/12/21 07/12/21 22:19 22:20 23:34 Temperature 98.5 F Pulse Rate 79 79 79 Respiratory 18 Rate Blood Pressure 135/77 135/77 131/66 O2 Sat by Pulse 94 Oximetry 07/13/21 07/13/21 05:26 06:07 Temperature 98.3 F Pulse Rate 79 79 Respiratory 18 Rate Blood Pressure 135/65 135/65 O2 Sat by Pulse 94 Oximetry - General Appearance General appearance: well-developed, well-nourished, appears stated age EENT: PERRL, mucous membranes moist Neck: no JVD, no thyromegaly, no carotid bruit, supple Respiratory: Present: Clear to Ascultation Cardiology: regular, normal heart rate, S1S2, no murmurs Gastrointestinal: normal, normoactive bowel sounds Integumentary: no rash, warm and dry, other (No edema) - Lab 07/13/21 04:11 07/13/21 04:11 Most recent lab results Calcium 7.3 mg/dL (8.4-10.2) L 07/13/21 04:11 Medications & Allergies - Medications Allergies/Adverse Reactions: Allergies No Known Allergies Allergy (Verified 07/08/21 09:14) Home Medications: Home Medications Medication Instructions Recorded Confirmed Last Taken Type Ondansetron [Zofran Odt] 4 mg PO Q8HR PRN #14 tab.rapdis 09/14/20 07/07/21 4 Days Ago Rx ~07/04/21 traMADoL [Ultram 50 MG tab] 50 mg PO Q4HR PRN #14 tablet 09/14/20 07/07/21 4 Days Ago Rx ~07/04/21 Baclofen [Lioresal] 5 mg PO TID 07/07/21 07/07/21 4 Days Ago History ~07/04/21 Duloxetine HCl [Drizalma Sprinkle] 30 mg PO QAM 07/07/21 07/07/21 4 Days Ago History ~07/04/21 FLUoxetine [PROzac] 20 mg PO QAM 07/07/21 07/08/21 4 Days Ago History ~07/04/21 Famotidine [Acid-Pep] 20 mg PO QDAY 07/07/21 07/07/21 4 Days Ago History ~07/04/21 Pregabalin [Lyrica] 100 mg PO TID 07/07/21 07/07/21 4 Days Ago History ~07/04/21 Tizanidine HCl 2 mg PO QDAY PRN 07/07/21 07/07/21 4 Days Ago History ~07/04/21 lisinopriL [Lisinopril] 10 mg PO QDAY 07/07/21 07/07/21 4 Days Ago History ~07/04/21 Aspirin EC [Halfprin EC] 81 mg PO QDAY 07/08/21 07/08/21 4 Days Ago History ~07/04/21 Hydralazine HCl 50 mg PO TID 07/08/21 07/08/21 4 Days Ago History ~07/04/21 Insulin Aspart Protam & Aspart 0 units SQ QAM 07/08/21 07/08/21 6 Days Ago History [NovoLOG Mix 70-30 Flexpen] ~07/02/21 Metoprolol [Lopressor] 25 mg PO QDAY 07/08/21 07/08/21 4 Days Ago History ~07/04/21 Quetiapine Fumarate [SEROquel] 800 mg PO QHS 07/08/21 07/08/21 4 Days Ago History ~07/04/21 Trazodone HCl 300 mg PO QHS 07/08/21 07/08/21 4 Days Ago History ~07/04/21 amLODIPine/ATORVASTATIN [Caduet 1 tab PO QDAY 07/08/21 07/08/21 4 Days Ago History 10-20 mg] ~07/04/21 Active Medications: Generic Name Dose Route Start Last Admin Trade Name Freq PRN Reason Stop Dose Admin Acetaminophen 650 mg 07/07/21 12:43 Acetaminophen 325 Mg Tab PO Q4H PRN Pain MILD(1-3)/Fever >100.5/AVINA Albuterol 2.5 mg 07/07/21 12:43 Albuterol 2.5 Mg/3 Ml Nebu IH Q4HRT PRN Shortness Of Breath Amlodipine Besylate 2.5 mg 07/08/21 10:00 07/12/21 09:55 Amlodipine 5 Mg Tab PO Not Given QDAY WATSON Aspirin 81 mg 07/09/21 10:00 07/12/21 09:54 Aspirin Ec 81 Mg Tab PO 81 mg QDAY WATSON Administration Atorvastatin Calcium 20 mg 07/07/21 22:00 07/12/21 21:49 Atorvastatin 20 Mg Tab PO 20 mg QHS WATSON Administration Dextrose 0 ml 07/07/21 19:51 Dextrose 10% *Hypoglycemia IV PRN PRN Hypoglycemia Famotidine 20 mg 07/08/21 10:00 07/12/21 09:55 Famotidine 20 Mg Tab PO 20 mg QDAY WATSON Administration Fluoxetine HCl 20 mg 07/08/21 10:00 07/12/21 09:54 Fluoxetine 20 Mg Cap PO 20 mg QDAY WATSON Administration Heparin Sodium (Porcine) 5,000 unit 07/09/21 14:30 07/13/21 06:07 Heparin 5,000 Unit/1 Ml Vial SUB-Q 5,000 unit Q8HR [facility]ATSON Administration Hydralazine HCl 50 mg 07/07/21 22:00 07/13/21 06:07 Hydralazine 25 Mg Tab PO 50 mg Q8HR [facility]SON Administration Hydromorphone HCl 0.5 mg 07/07/21 12:43 07/12/21 22:27 Hydromorphone 1 Mg/1 Ml Inj IV 0.5 mg Q23H PRN Administration Pain , Severe (7-10) Sodium Chloride 1,000 mls @ 125 mls/hr 07/12/21 16:00 07/13/21 06:09 Nacl 0.9% 1000 Ml IV 125 mls/hr DIRECT WATSON Administration Insulin Human Lispro 0 unit 07/08/21 00:00 07/13/21 05:57 Insulin Lispro 100 Unit/Ml SUB-Q Not Given Q6HR [facility] Protocol Metoprolol Tartrate 25 mg 07/08/21 22:00 07/12/21 22:19 Metoprolol Tartrate 25 Mg Tab PO 25 mg BID WATSON Administration Morphine Sulfate 2 mg 07/13/21 07:30 07/13/21 07:31 Morphine 2 Mg/1 Ml Inj IV 07/13/21 10:30 2 mg ONCE@0730 WATSON Administration Ondansetron HCl 4 mg 07/07/21 12:43 Ondansetron 4 Mg/2 Ml Inj IV Q8H PRN Nausea And Vomiting Oxycodone/Acetaminophen 1 tab 07/07/21 12:43 Oxycodone /Acetaminophen 5-325mg Tab PO Q16H PRN Pain, Moderate (4-6) Pregabalin 100 mg 07/07/21 22:00 07/12/21 21:48 Pregabalin 50 Mg Cap PO 100 mg TID WATSON Administration Quetiapine Fumarate 800 mg 07/08/21 18:00 07/12/21 17:59 Quetiapine 200 Mg Tab PO Not Given QPM [facility]ATSON Sodium Bicarbonate 1,300 mg 07/11/21 16:00 07/12/21 21:50 Sodium Bicarbonate 650 Mg Tab PO 1,300 mg BID WATSON Administration Sodium Chloride 10 ml 07/07/21 22:00 07/12/21 21:53 Sodium Chloride 0.9% 10 Ml Flush Syringe IV 10 ml BID WATSON Administration Sodium Chloride 10 ml 07/07/21 12:43 07/11/21 11:41 Sodium Chloride 0.9% 10 Ml Flush Syringe IV 10 ml PRN PRN Administration LINE FLUSH
--- NOTE | 2021-07-13 11:29 | Ultrasound Report ---
ULTRASOUND RENAL INDICATION / CLINICAL INFORMATION: Renal failure. COMPARISON: None available. FINDINGS: RIGHT KIDNEY: Length = 9.9 cm. - Echogenicity: Increased. - Cortical Thickness: Normal. - Hydronephrosis: None. - Cyst / Mass: None. - Stones: None seen. LEFT KIDNEY: Length = 9.6 cm. - Echogenicity: Increased. - Cortical Thickness: Normal. - Hydronephrosis: None. - Cyst / Mass: Simple appearing cyst in the mid to upper pole, measuring 2.5 x 2.4 x 2.1 cm. - Stones: None seen. URINARY BLADDER: Selby catheter in place. A small amount of residual urine is noted within the bladde r. FREE FLUID: None. ADDITIONAL FINDINGS: None. IMPRESSION: 1. Findings characteristic of bilateral medical renal disease. No evidence of hydronephrosis. 2. Simple left renal cyst. 3. Residual urine noted in the bladder with Selby catheter in place. Scribed by: Lisbeth Eastman RDMS Len Scribed: 07/13/2021 9:38 AM I have reviewed the images, agree with this report, and edited this report as needed. Signer Name: Dane Azar MD Signed: 07/13/2021 11:25 AM Workstation Name: [id number]
[2021-07-13] MEDS: ASPIRIN EC 81 MG TAB PO SCH (11:40)
[2021-07-13] MEDS: amLODIPine 5 MG TAB PO SCH (11:40)
[2021-07-13] MEDS: METOPROLOL TARTRATE 25 MG TAB PO SCH ×2 (11:42→23:34)
[2021-07-13] MEDS: SODIUM BICARBONATE 650 MG TAB PO SCH ×2 (11:42→23:36)
[2021-07-13] MEDS: FLUoxetine 20 MG CAP PO SCH (11:42)
[2021-07-13] MEDS: PREGABALIN 50 MG CAP PO SCH ×3 (11:42→23:35)
[2021-07-13] MEDS: FAMOTIDINE 20 MG TAB PO SCH (11:43)
[2021-07-13] MEDS: QUEtiapine 200 MG TAB PO SCH (17:02)
[2021-07-14] MEDS: INSULIN LISPRO 100 UNIT/ML SUB-Q SCH ×4 (01:26→17:16)
[2021-07-14] MEDS: hydrALAZINE 25 MG TAB PO SCH ×3 (05:38→21:31)
[2021-07-14] MEDS: HEPARIN 5,000 UNIT/1 ML VIAL SUB-Q SCH ×3 (05:43→21:33)
[2021-07-14] MEDS: SODIUM CHLORIDE 0.9% 1000 ML 1,000 ML IV SCH (06:04)
[2021-07-14 06:18] LABS: Basophils % (Auto) 0.5 % (0.0-1.8); Eosinophils # (Auto) 0.2 K/mm3 (0.0-0.4); Eosinophils % (Auto) 2.3 % (0.0-4.3); Hematocrit 30.5 % (30.3-42.9); Hemoglobin 9.5 gm/dl (10.1-14.3); Lymphocytes # (Auto) 2.1 K/mm3 (1.2-5.4); Lymphocytes % (Auto) 24.1 % (13.4-35.0); Mean Corpuscular HGB Conc 31 % (30-34); Mean Corpuscular Volume 88 fl (79-97); Monocytes # (Auto) 1.1 K/mm3 (0.0-0.8); Monocytes % (Auto) 13.3 % (0.0-7.3); Platelet Count 221 K/mm3 (140-440); Red Blood Count 3.48 M/mm3 (3.65-5.03); Red Cell Distribution Width 15.3 % (13.2-15.2)
[2021-07-14 06:40] LABS: Alanine Aminotransferase 11 units/L (7-56); BUN/Creatinine Ratio 15; Blood Urea Nitrogen 54 mg/dL (7-17); Calcium 7.6 mg/dL (8.4-10.2); Hemolysis Index 19
--- NOTE | 2021-07-14 07:48 | XRay Report ---
LEFT ANKLE 2 VIEW(S) INDICATION / CLINICAL INFORMATION: Twisted LT ankle COMPARISON: None available. FINDINGS: BONES / JOINT(S): Well-corticated bone fragments adjacent the tip of the medial malleolus are compatible with previous avulsion injury. Additional well- corticated avulsion fragments are present adjacent the tip of the fibula. No significant arthritis. SOFT TISSUES: Soft tissue swelling overlies the lateral malleolus. ADDITIONAL FINDINGS: None. IMPRESSION: Soft tissue swelling overlies lateral malleolus. 2. Remote avulsion injuries are suggested as detailed. No obvious acute fracture. Signer Name: Carson Dumont II, MD Signed: 07/13/2021 6:38 AM Workstation Name: [id number]
[2021-07-14] MEDS: PREGABALIN 50 MG CAP PO SCH ×3 (08:50→21:32)
--- NOTE | 2021-07-14 09:40 | Progress Note ---
Assessment and Plan Impression: * CARLOS on ckd 3/4 * AMS * Acute Psychosis * volume depletion * DM * COVID PUI * polypharmacy * urinary retention Plan: * Renal function is slowly improving. She is also currently nonoliguric * Acidosis has been corrected. bicarbonate drip has been discontinued. * continue po sodium bicarb * cr stable today but hopefully plateaued, follow up renal imaging reveals retention * s/p riddle cath placement * daily lytes and strict i/os * renal diet and ua noted * carlos likely due to volume depletion and hypoperfusion * multiple psy and antidepressant meds with numerous interaction, med list needs to be redefine * No indication for renal replacement therapy today * Discontinue IV fluid for now. Would recommend bladder training and attempt at Riddle removal Subjective Date of service: 07/14/21 Principal diagnosis: carlos on ckd, acute psychosis Interval history: Patient is comfortable this morning. Denies any shortness of breath. No nausea vomiting or diarrhea. Objective - Vital Signs Vital signs: Vital Signs - 12hr 07/13/21 07/13/21 07/14/21 23:33 23:34 05:14 Temperature 98.5 F Pulse Rate 72 72 78 Respiratory 18 Rate Blood Pressure 150/65 150/65 155/72 O2 Sat by Pulse 95 Oximetry 07/14/21 05:38 Temperature Pulse Rate 78 Respiratory Rate Blood Pressure 155/72 O2 Sat by Pulse Oximetry - General Appearance General appearance: well-developed, appears stated age EENT: PERRL, mucous membranes moist Neck: no JVD, no thyromegaly, no carotid bruit, supple Respiratory: Present: Clear to Ascultation Cardiology: regular, normal heart rate, S1S2, no murmurs Gastrointestinal: normal, normoactive bowel sounds Integumentary: no rash, other - Lab 07/14/21 06:03 07/14/21 06:03 Most recent lab results Calcium 7.6 mg/dL (8.4-10.2) L 07/14/21 06:03 Ur Total Protein 24 Hr 1700.00 mg/dL (2-200) H 07/12/21 15:19 Urine Total Protein 68 mg/dL (5-11.8) H 07/12/21 15:19 Medications & Allergies - Medications Allergies/Adverse Reactions: Allergies No Known Allergies Allergy (Verified 07/08/21 09:14) Home Medications: Home Medications Medication Instructions Recorded Confirmed Last Taken Type Ondansetron [Zofran Odt] 4 mg PO Q8HR PRN #14 tab.rapdis 09/14/20 07/07/21 4 Days Ago Rx ~07/04/21 traMADoL [Ultram 50 MG tab] 50 mg PO Q4HR PRN #14 tablet 09/14/20 07/07/21 4 Days Ago Rx ~07/04/21 Baclofen [Lioresal] 5 mg PO TID 07/07/21 07/07/21 4 Days Ago History ~07/04/21 Duloxetine HCl [Drizalma Sprinkle] 30 mg PO QAM 07/07/21 07/07/21 4 Days Ago History ~07/04/21 FLUoxetine [PROzac] 20 mg PO QAM 07/07/21 07/08/21 4 Days Ago History ~07/04/21 Famotidine [Acid-Pep] 20 mg PO QDAY 07/07/21 07/07/21 4 Days Ago History ~07/04/21 Pregabalin [Lyrica] 100 mg PO TID 07/07/21 07/07/21 4 Days Ago History ~07/04/21 Tizanidine HCl 2 mg PO QDAY PRN 07/07/21 07/07/21 4 Days Ago History ~07/04/21 lisinopriL [Lisinopril] 10 mg PO QDAY 07/07/21 07/07/21 4 Days Ago History ~07/04/21 Aspirin EC [Halfprin EC] 81 mg PO QDAY 07/08/21 07/08/21 4 Days Ago History ~07/04/21 Hydralazine HCl 50 mg PO TID 07/08/21 07/08/21 4 Days Ago History ~07/04/21 Insulin Aspart Protam & Aspart 0 units SQ QAM 07/08/21 07/08/21 6 Days Ago History [NovoLOG Mix 70-30 Flexpen] ~07/02/21 Metoprolol [Lopressor] 25 mg PO QDAY 07/08/21 07/08/21 4 Days Ago History ~07/04/21 Quetiapine Fumarate [SEROquel] 800 mg PO QHS 07/08/21 07/08/21 4 Days Ago History ~07/04/21 Trazodone HCl 300 mg PO QHS 07/08/21 07/08/21 4 Days Ago History ~07/04/21 amLODIPine/ATORVASTATIN [Caduet 1 tab PO QDAY 07/08/21 07/08/21 4 Days Ago History 10-20 mg] ~07/04/21 Active Medications: Generic Name Dose Route Start Last Admin Trade Name Freq PRN Reason Stop Dose Admin Acetaminophen 650 mg 07/07/21 12:43 Acetaminophen 325 Mg Tab PO Q4H PRN Pain MILD(1-3)/Fever >100.5/AVINA Albuterol 2.5 mg 07/07/21 12:43 Albuterol 2.5 Mg/3 Ml Nebu IH Q4HRT PRN Shortness Of Breath Amlodipine Besylate 2.5 mg 07/08/21 10:00 07/13/21 11:40 Amlodipine 5 Mg Tab PO 2.5 mg QDAY WATSON Administration Aspirin 81 mg 07/09/21 10:00 07/13/21 11:40 Aspirin Ec 81 Mg Tab PO 81 mg QDAY WATSON Administration Atorvastatin Calcium 20 mg 07/07/21 22:00 07/13/21 23:35 Atorvastatin 20 Mg Tab PO 20 mg QHS WATSON Administration Dextrose 0 ml 07/07/21 19:51 Dextrose 10% *Hypoglycemia IV PRN PRN Hypoglycemia Famotidine 20 mg 07/08/21 10:00 07/13/21 11:43 Famotidine 20 Mg Tab PO 20 mg QDAY WATSON Administration Fluoxetine HCl 20 mg 07/08/21 10:00 07/13/21 11:42 Fluoxetine 20 Mg Cap PO 20 mg QDAY WATSON Administration Heparin Sodium (Porcine) 5,000 unit 07/09/21 14:30 07/14/21 05:43 Heparin 5,000 Unit/1 Ml Vial SUB-Q 5,000 unit Q8HR WATSON Administration Hydralazine HCl 50 mg 07/07/21 22:00 07/14/21 05:38 Hydralazine 25 Mg Tab PO 50 mg Q8HR WATSON Administration Hydromorphone HCl 0.5 mg 07/07/21 12:43 07/12/21 22:27 Hydromorphone 1 Mg/1 Ml Inj IV 0.5 mg Q23H PRN Administration Pain , Severe (7-10) Sodium Chloride 1,000 mls @ 75 mls/hr 07/12/21 16:00 07/14/21 06:04 Nacl 0.9% 1000 Ml IV 125 mls/hr DIRECT WATSON Administration Insulin Human Lispro 0 unit 07/08/21 00:00 07/14/21 05:44 Insulin Lispro 100 Unit/Ml SUB-Q Not Given Q6HR WATSON Protocol Metoprolol Tartrate 25 mg 07/08/21 22:00 07/13/21 23:34 Metoprolol Tartrate 25 Mg Tab PO 25 mg BID WATSON Administration Ondansetron HCl 4 mg 07/07/21 12:43 Ondansetron 4 Mg/2 Ml Inj IV Q8H PRN Nausea And Vomiting Oxycodone/Acetaminophen 1 tab 07/07/21 12:43 Oxycodone /Acetaminophen 5-325mg Tab PO Q16H PRN Pain, Moderate (4-6) Pregabalin 100 mg 07/07/21 22:00 07/13/21 23:35 Pregabalin 50 Mg Cap PO 100 mg TID WATSON Administration Quetiapine Fumarate 800 mg 07/08/21 18:00 07/13/21 17:02 Quetiapine 200 Mg Tab PO 800 mg QPM WATSON Administration Sodium Bicarbonate 1,300 mg 07/11/21 16:00 07/13/21 23:36 Sodium Bicarbonate 650 Mg Tab PO 1,300 mg BID WATSON Administration Sodium Chloride 10 ml 07/07/21 22:00 07/13/21 23:48 Sodium Chloride 0.9% 10 Ml Flush Syringe IV 10 ml BID WATSON Administration Sodium Chloride 10 ml 07/07/21 12:43 07/11/21 11:41 Sodium Chloride 0.9% 10 Ml Flush Syringe IV 10 ml PRN PRN Administration LINE FLUSH
[2021-07-14] MEDS: SODIUM BICARBONATE 650 MG TAB PO SCH ×2 (09:56→21:31)
[2021-07-14] MEDS: amLODIPine 5 MG TAB PO SCH (09:56)
[2021-07-14] MEDS: ASPIRIN EC 81 MG TAB PO SCH (09:56)
[2021-07-14] MEDS: METOPROLOL TARTRATE 25 MG TAB PO SCH ×2 (09:59→21:33)
[2021-07-14] MEDS: FAMOTIDINE 20 MG TAB PO SCH (09:59)
[2021-07-14] MEDS: FLUoxetine 20 MG CAP PO SCH (10:01)
[2021-07-14] MEDS: QUEtiapine 200 MG TAB PO SCH (17:12)
--- NOTE | 2021-07-14 20:53 | Progress Note ---
Assessment and Plan Assessment and plan: --SIRS (systemic inflammatory response syndrome) Covid negative -- Acute kidney injury (CARLOS) with acute tubular necrosis (ATN) IV fluid resuscitation therapy, repeat BMP in a.m. to monitor serum creatinine. Creatinine Worsening 09/13/20=27/1.9 baseline 07/07/21=3.0-4.7-4.9 -4.0 today Nephrology following No indication for replacement therapy Input output monitoring Continue IV fluids, supportive care -- Uncontrolled diabetes mellitus Consistent carbohydrate diet, Accu-Chek, insulin protocol, IV fluid resuscitation therapy, hypoglycemia protocol. Insulin dosage adjusted, well controlled --Accelerated hypertension Continue current management, closely monitor blood pressures Adjust medications as needed -- Vascular dementia with behavioral disturbance/acute psychosis Verbal prompting, verbal redirection, benzodiazepine therapy as clinically indicated. Psych evaluated the patient, did not recommend inpatient psych management --COVID-19/fallon PCR test negative --Moderate protein calorie malnutrition; Nutrition supplements, supportive care Nutrition consult if needed -- DVT prophylaxis SCD to bilateral lower extremities while in bed Closely monitor patient and adjust management as needed Plan of care reviewed with the patient and her nurse Subjective Date of service: 07/12/21 Principal diagnosis: carlos on ckd, acute psychosis Interval history: Assessment and Plan 71 YO Female with HTN, DM, CKD, MDD, DARIEL, OA, Vascular Dementia, Cerebral Atherosclerosis presents to ED for evaluation for diminished cognition. Patient was found down sitting on the floor beside her bed by family members. EMS was notified and transported to ER. All lab and imaging studies reviewed. CXR no infiltrates. Patient found to have systemic inflammatory response, acute kidney injury, metabolic encephalopathy, and uncontrolled diabetes mellitus. Patient admitted to medical floor and initiated on coronavirus protocol due to increased risk of worsening symptoms. However Fallon PCR test was negative Daily clinical course: 2/2; patient remains confused, not oriented to place or person. Being evaluated by psychiatry and recommending inpatient psych management. Renal function worsening, continue IV fluid. If no improvement will consult nephrology. Continue to follow clinically, Covid PCR test pending. 2/3: Renal function continued to decline, continue IV fluid, consult nephrology. Covid PCR still pending. Continue to follow clinically. Psych following. 24Covid negative,Creatinine Worsening 07/11; BUN/creatinine 65/4.9 ; 68/4.7 07/13/21; patient's creatinine is 4.0, closely monitor Follow neurology recommendations. Follow ankle x-ray, consult orthopedic surgeon if needed 07/14; mild improvement of renal function, closely monitor Nephrology following History Interval history: I have seen and examined the patient at the bedside Patient's chart and medications reviewed Patient's renal function slightly improved No new complaints Hospitalist Physical - Constitutional Vitals: Temp Pulse Resp BP Pulse Ox 98.8 F 77 18 156/74 96 07/14/21 13:55 07/14/21 13:55 07/14/21 13:55 07/14/21 13:55 07/14/21 13:55 General appearance: Present: no acute distress, well-nourished, obese - EENT Eyes: Present: PERRL, EOM intact - Neck Neck: Present: supple, normal ROM - Respiratory Respiratory effort: normal Respiratory: bilateral: diminished, negative: rales, rhonchi, wheezing - Cardiovascular Rhythm: regular Heart Sounds: Present: S1 & S2 - Extremities Extremities: no ischemia, No edema - Abdominal General gastrointestinal: soft, non-tender, non-distended, normal bowel sounds - Integumentary Integumentary: Present: clear, warm - Psychiatric Psychiatric: appropriate mood/affect, cooperative - Neurologic Neurologic: CNII-XII intact, moves all extremities HEART Score - HEART Score Troponin: Troponin T < 0.010 ng/mL (0.00-0.029) 07/07/21 09:03 Results - Labs CBC & Chem 7: 07/14/21 06:03 07/14/21 06:03 Labs: Laboratory Last Values WBC 8.7 K/mm3 (4.5-11.0) 07/14/21 06:03 RBC 3.48 M/mm3 (3.65-5.03) L 07/14/21 06:03 Hgb 9.5 gm/dl (10.1-14.3) L 07/14/21 06:03 Hct 30.5 % (30.3-42.9) 07/14/21 06:03 MCV 88 fl (79-97) 07/14/21 06:03 MCH 27 pg (28-32) L 07/14/21 06:03 MCHC 31 % (30-34) 07/14/21 06:03 RDW 15.3 % (13.2-15.2) H 07/14/21 06:03 Plt Count 221 K/mm3 (140-440) 07/14/21 06:03 Lymph % (Auto) 24.1 % (13.4-35.0) 07/14/21 06:03 [place] % (Auto) 13.3 % (0.0-7.3) H 07/14/21 06:03 Eos % (Auto) 2.3 % (0.0-4.3) 07/14/21 06:03 Baso % (Auto) 0.5 % (0.0-1.8) 07/14/21 06:03 Lymph # (Auto) 2.1 K/mm3 (1.2-5.4) 07/14/21 06:03 [place] # (Auto) 1.1 K/mm3 (0.0-0.8) H 07/14/21 06:03 Eos # (Auto) 0.2 K/mm3 (0.0-0.4) 07/14/21 06:03 Baso # (Auto) 0.0 K/mm3 (0.0-0.1) 07/14/21 06:03 Seg Neutrophils % 59.8 % (40.0-70.0) 07/14/21 06:03 Seg Neutrophils # 5.2 K/mm3 (1.8-7.7) 07/14/21 06:03 PT 13.6 Sec. (12.2-14.9) 07/07/21 09:03 INR 0.94 (0.87-1.13) 07/07/21 09:03 APTT 28.3 Sec. (24.2-36.6) 07/07/21 09:03 D-Dimer 1937.58 ng/mlDDU (0-234) H 07/07/21 13:27 VBG pH 7.276 (7.320-7.420) L 07/07/21 09:03 Sodium 144 mmol/L (137-145) 07/14/21 06:03 Potassium 3.9 mmol/L (3.6-5.0) 07/14/21 06:03 Chloride 107.6 mmol/L (98-107) H 07/14/21 06:03 Carbon Dioxide 24 mmol/L (22-30) 07/14/21 06:03 Anion Gap 16 mmol/L 07/14/21 06:03 BUN 54 mg/dL (7-17) H 07/14/21 06:03 Creatinine 3.6 mg/dL (0.6-1.2) H 07/14/21 06:03 Estimated GFR 15 ml/min 07/14/21 06:03 BUN/Creatinine Ratio 15 % 07/14/21 06:03 Glucose 106 mg/dL (65-100) H 07/14/21 06:03 POC Glucose 114 mg/dL (70-105) H 07/14/21 16:06 Calcium 7.6 mg/dL (8.4-10.2) L 07/14/21 06:03 Total Bilirubin < 0.20 mg/dL (0.1-1.2) 07/14/21 06:03 AST 9 units/L (5-40) 07/14/21 06:03 ALT 11 units/L (7-56) 07/14/21 06:03 Alkaline Phosphatase 61 units/L (35-129) 07/14/21 06:03 Ammonia 22.0 umol/L (25-60) L 07/07/21 09:03 Lactate Dehydrogenase 428 units/L (91-180) H 07/07/21 13:27 Total Creatine Kinase 100 units/L (30-135) 07/07/21 09:03 CK-MB (CK-2) 2.9 ng/mL (0.0-4.0) 07/07/21 09:03 CK-MB (CK-2) Rel Index 2.9 (0-4) 07/07/21 09:03 Troponin T < 0.010 ng/mL (0.00-0.029) 07/07/21 09:03 C-Reactive Protein 0.00 mg/dL (0.00-1.30) 07/07/21 13:27 Total Protein 5.6 g/dL (6.3-8.2) L 07/14/21 06:03 Albumin 3.0 g/dL (3.9-5) L 07/14/21 06:03 Albumin/Globulin Ratio 1.2 % 07/14/21 06:03 Procalcitonin < 0.05 ng/mL (<0.15) 07/07/21 13:27 TSH 1.880 mlU/mL (0.270-4.200) 07/07/21 09:03 Free T4 1.31 ng/dL (0.76-1.46) 07/07/21 09:03 Urine Color Yellow (Yellow) 07/07/21 Unknown Urine Turbidity Hazy (Clear) 07/07/21 Unknown Urine pH 5.0 (5.0-7.0) 07/07/21 Unknown Ur Specific [place] 1.016 (1.003-1.030) 07/07/21 Unknown Urine Protein >500 mg/dL (Negative) 07/07/21 Unknown Urine Glucose (UA) Neg mg/dL (Negative) 07/07/21 Unknown Urine Ketones 20 mg/dL (Negative) 07/07/21 Unknown Urine Blood Neg (Negative) 07/07/21 Unknown Urine Nitrite Neg (Negative) 07/07/21 Unknown Urine Bilirubin Neg (Negative) 07/07/21 Unknown Urine Urobilinogen < 2.0 mg/dL (<2.0) 07/07/21 Unknown Ur Leukocyte Esterase Neg (Negative) 07/07/21 Unknown Urine WBC (Auto) 10.0 /HPF (0.0-6.0) H 07/07/21 Unknown Urine RBC (Auto) 4.0 /HPF (0.0-6.0) 07/07/21 Unknown U Epithel Cells (Auto) < 1.0 /HPF (0-13.0) 07/07/21 Unknown Urine Total Volume 2500 ml 07/12/21 15:19 Ur Total Protein 24 Hr 1700.00 mg/dL (2-200) H 07/12/21 15:19 Urine Total Protein 68 mg/dL (5-11.8) H 07/12/21 15:19 Urine Opiates Screen Negative 07/07/21 Unknown Urine Methadone Screen Negative 07/07/21 Unknown Ur Barbiturates Screen Negative 07/07/21 Unknown Ur Phencyclidine Scrn Negative 07/07/21 Unknown Ur Amphetamines Screen Negative 07/07/21 Unknown U Benzodiazepines Scrn Negative 07/07/21 Unknown Urine Cocaine Screen Negative 07/07/21 Unknown U Marijuana (THC) Screen Negative 07/07/21 Unknown Drugs of Abuse Note Disclamer 07/07/21 Unknown Plasma/Serum Alcohol < 0.01 % (0-0.07) 07/07/21 09:03 Coronavirus (PCR) Negative (Negative) 07/09/21 11:45 Selby/IV: Voiding Method Indwelling Catheter Active Medications - Current Medications Current Medications: Generic Name Dose Route Start Last Admin Trade Name Freq PRN Reason Stop Dose Admin Acetaminophen 650 mg 07/07/21 12:43 Acetaminophen 325 Mg Tab PO Q4H PRN Pain MILD(1-3)/Fever >100.5/AVINA Albuterol 2.5 mg 07/07/21 12:43 Albuterol 2.5 Mg/3 Ml Nebu IH Q4HRT PRN Shortness Of Breath Amlodipine Besylate 2.5 mg 07/08/21 10:00 07/14/21 09:56 Amlodipine 5 Mg Tab PO 2.5 mg QDAY WATSON Administration Aspirin 81 mg 07/09/21 10:00 07/14/21 09:56 Aspirin Ec 81 Mg Tab PO 81 mg QDAY WATSON Administration Atorvastatin Calcium 20 mg 07/07/21 22:00 07/13/21 23:35 Atorvastatin 20 Mg Tab PO 20 mg QHS WATSON Administration Dextrose 0 ml 07/07/21 19:51 Dextrose 10% *Hypoglycemia IV PRN PRN Hypoglycemia Famotidine 20 mg 07/08/21 10:00 07/14/21 09:59 Famotidine 20 Mg Tab PO 20 mg QDAY WATSON Administration Fluoxetine HCl 20 mg 07/08/21 10:00 07/14/21 10:01 Fluoxetine 20 Mg Cap PO 20 mg QDAY WATSON Administration Heparin Sodium (Porcine) 5,000 unit 07/09/21 14:30 07/14/21 13:00 Heparin 5,000 Unit/1 Ml Vial SUB-Q 5,000 unit Q8HR WATSON Administration Hydralazine HCl 50 mg 07/07/21 22:00 07/14/21 13:00 Hydralazine 25 Mg Tab PO 50 mg Q8HR WATSON Administration Hydromorphone HCl 0.5 mg 07/07/21 12:43 07/12/21 22:27 Hydromorphone 1 Mg/1 Ml Inj IV 0.5 mg Q23H PRN Administration Pain , Severe (7-10) Insulin Human Lispro 0 unit 07/08/21 00:00 07/14/21 17:16 Insulin Lispro 100 Unit/Ml SUB-Q Not Given Q6HR [facility] Protocol Metoprolol Tartrate 25 mg 07/08/21 22:00 07/14/21 09:59 Metoprolol Tartrate 25 Mg Tab PO 25 mg BID WATSON Administration Ondansetron HCl 4 mg 07/07/21 12:43 Ondansetron 4 Mg/2 Ml Inj IV Q8H PRN Nausea And Vomiting Oxycodone/Acetaminophen 1 tab 07/07/21 12:43 Oxycodone /Acetaminophen 5-325mg Tab PO Q16H PRN Pain, Moderate (4-6) Pregabalin 100 mg 07/07/21 22:00 07/14/21 13:01 Pregabalin 50 Mg Cap PO 100 mg TID WATSON Administration Quetiapine Fumarate 800 mg 07/08/21 18:00 07/14/21 17:12 Quetiapine 200 Mg Tab PO 800 mg QPM WATSON Administration Sodium Bicarbonate 1,300 mg 07/11/21 16:00 07/14/21 09:56 Sodium Bicarbonate 650 Mg Tab PO 1,300 mg BID WATSON Administration Sodium Chloride 10 ml 07/07/21 22:00 07/14/21 10:04 Sodium Chloride 0.9% 10 Ml Flush Syringe IV 10 ml BID WATSON Administration Sodium Chloride 10 ml 07/07/21 12:43 07/11/21 11:41 Sodium Chloride 0.9% 10 Ml Flush Syringe IV 10 ml PRN PRN Administration LINE FLUSH Nutrition/Malnutrition Assess - Dietary Evaluation Nutrition/Malnutrition Findings: Nutrition Notes Start: 07/14/21 17:37 Freq: Status: Active Protocol: Document 07/14/21 17:37 DIMA (Rec: 07/14/21 17:47 DIMA [id number]) Nutrition Notes Need for Assessment generated from: LOS Initial or Follow up Assessment Current Diagnosis Acute Kidney Injury,CKD(stage I-IV),Diabetes Other Pertinent Diagnosis AMS, Acute Psichosis, COVID-19 pui, Anuria, Dehydration, Polypharmacy. Current Diet Renal Diet (since D 07/07). Labs/Tests 07/14: Cl 107.6, BUN 54, Crea 3.6, Glu 106. Pertinent Medications 07/14: Nutritionally unremarkable. 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 Weight Status Obese Subjective/Other Information RD consult for LOS assessment. Pt's PO intake of meals has been Good (100%), according to ADL notes. Percent of energy/protein needs met: Prescribed Renal Diet provides for energy/protein needs (2, 072 Kcal/77 g) during LOS. Burn Absent Trauma Absent GI Symptoms None Food Allergy No Skin Integrity/Comment Clear, warm, dry. Current % PO Good (75-100%) Minimum of two criteria No #1 Nutrition Diagnosis No nutrition diagnosis at this time Is patient on ventilator? No Is Patient Ambulatory and/or Out of Bed Yes REE-([place]-St. Jeor-ambulatory/OOB) [ 1723.969 [id number]] Kcal/Kg value to use for calculation 16 Approximate Energy Requirements Using 1331 kcal/Kg Calculation Used for Recommendations Kcal/kg Additional Notes Protein: 1-1.2 g/Kg; 65-78 g/ day. Fluids: 1 ml/Kcal, or as per MD. Nutrition Intervention Revisit per MD consult or patient Sign Off request: Additional Comments Continue monitoring food tolerance, %PO intake of meals , and BM.
[2021-07-15] MEDS: INSULIN LISPRO 100 UNIT/ML SUB-Q SCH ×4 (00:34→17:07)
[2021-07-15 05:39] LABS: Albumin 3.2 g/dL (3.9-5); Calcium 7.7 mg/dL (8.4-10.2)
[2021-07-15 05:41] LABS: Basophils % (Auto) 0.4 % (0.0-1.8); Eosinophils # (Auto) 0.2 K/mm3 (0.0-0.4); Eosinophils % (Auto) 1.7 % (0.0-4.3); Hematocrit 31.1 % (30.3-42.9); Hemoglobin 9.6 gm/dl (10.1-14.3); Lymphocytes # (Auto) 1.9 K/mm3 (1.2-5.4); Lymphocytes % (Auto) 18.5 % (13.4-35.0); Mean Corpuscular HGB Conc 31 % (30-34); Mean Corpuscular Volume 87 fl (79-97); Monocytes # (Auto) 1.3 K/mm3 (0.0-0.8); Monocytes % (Auto) 12.1 % (0.0-7.3); Platelet Count 251 K/mm3 (140-440); Red Blood Count 3.59 M/mm3 (3.65-5.03)
[2021-07-15] MEDS: hydrALAZINE 25 MG TAB PO SCH ×2 (06:43→14:08)
[2021-07-15] MEDS: HEPARIN 5,000 UNIT/1 ML VIAL SUB-Q SCH ×2 (06:44→14:08)
--- NOTE | 2021-07-15 09:45 | Progress Note ---
Assessment and Plan Impression: * CARLOS on ckd 3/4 * AMS * Acute Psychosis * volume depletion * DM * COVID PUI * polypharmacy * urinary retention Plan: * Renal function is slowly improving. She is also currently nonoliguric * Acidosis has been corrected. bicarbonate drip has been discontinued. * continue po sodium bicarb * cr stable today but hopefully plateaued, follow up renal imaging reveals retention * s/p riddle cath placement * daily lytes and strict i/os * renal diet and ua noted * carlos likely due to volume depletion and hypoperfusion * multiple psy and antidepressant meds with numerous interaction, med list needs to be redefine * No indication for renal replacement therapy today * Would recommend bladder training and attempt at Riddle removal * No objection to discharge from renal standpoint. She will however need close outpatient follow-up Subjective Date of service: 07/15/21 Principal diagnosis: carlos on ckd, acute psychosis Interval history: Patient is comfortable today. Denies any shortness of breath. No nausea vomiting or diarrhea. Objective - Vital Signs Vital signs: Vital Signs - 12hr 07/14/21 07/15/21 07/15/21 22:00 04:11 06:43 Temperature 98.7 F 98.3 F Pulse Rate 92 H 83 83 Respiratory 18 Rate Blood Pressure 171/86 171/86 Blood Pressure 152/71 [Right] O2 Sat by Pulse 100 95 Oximetry - General Appearance General appearance: well-developed, well-nourished, appears stated age EENT: PERRL, mucous membranes moist Neck: no JVD, no thyromegaly, no carotid bruit, supple Respiratory: Present: Clear to Ascultation Cardiology: regular, normal heart rate, S1S2, no murmurs Gastrointestinal: normal, normoactive bowel sounds Integumentary: no rash, other (No edema) - Lab 07/15/21 05:05 07/15/21 05:05 Most recent lab results Calcium 7.7 mg/dL (8.4-10.2) L 07/15/21 05:05 Ur Total Protein 24 Hr 1700.00 mg/dL (2-200) H 07/12/21 15:19 Urine Total Protein 68 mg/dL (5-11.8) H 07/12/21 15:19 Medications & Allergies - Medications Allergies/Adverse Reactions: Allergies No Known Allergies Allergy (Verified 07/08/21 09:14) Home Medications: Home Medications Medication Instructions Recorded Confirmed Last Taken Type Ondansetron [Zofran Odt] 4 mg PO Q8HR PRN #14 tab.rapdis 09/14/20 07/07/21 4 Days Ago Rx ~07/04/21 traMADoL [Ultram 50 MG tab] 50 mg PO Q4HR PRN #14 tablet 09/14/20 07/07/21 4 Days Ago Rx ~07/04/21 Baclofen [Lioresal] 5 mg PO TID 07/07/21 07/07/21 4 Days Ago History ~07/04/21 Duloxetine HCl [Drizalma Sprinkle] 30 mg PO QAM 07/07/21 07/07/21 4 Days Ago History ~07/04/21 FLUoxetine [PROzac] 20 mg PO QAM 07/07/21 07/08/21 4 Days Ago History ~07/04/21 Famotidine [Acid-Pep] 20 mg PO QDAY 07/07/21 07/07/21 4 Days Ago History ~07/04/21 Pregabalin [Lyrica] 100 mg PO TID 07/07/21 07/07/21 4 Days Ago History ~07/04/21 Tizanidine HCl 2 mg PO QDAY PRN 07/07/21 07/07/21 4 Days Ago History ~07/04/21 lisinopriL [Lisinopril] 10 mg PO QDAY 07/07/21 07/07/21 4 Days Ago History ~07/04/21 Aspirin EC [Halfprin EC] 81 mg PO QDAY 07/08/21 07/08/21 4 Days Ago History ~07/04/21 Hydralazine HCl 50 mg PO TID 07/08/21 07/08/21 4 Days Ago History ~07/04/21 Insulin Aspart Protam & Aspart 0 units SQ QAM 07/08/21 07/08/21 6 Days Ago History [NovoLOG Mix 70-30 Flexpen] ~07/02/21 Metoprolol [Lopressor] 25 mg PO QDAY 07/08/21 07/08/21 4 Days Ago History ~07/04/21 Quetiapine Fumarate [SEROquel] 800 mg PO QHS 07/08/21 07/08/21 4 Days Ago History ~07/04/21 Trazodone HCl 300 mg PO QHS 07/08/21 07/08/21 4 Days Ago History ~07/04/21 amLODIPine/ATORVASTATIN [Caduet 1 tab PO QDAY 07/08/21 07/08/21 4 Days Ago History 10-20 mg] ~07/04/21 Active Medications: Generic Name Dose Route Start Last Admin Trade Name Freq PRN Reason Stop Dose Admin Acetaminophen 650 mg 07/07/21 12:43 Acetaminophen 325 Mg Tab PO Q4H PRN Pain MILD(1-3)/Fever >100.5/AVINA Albuterol 2.5 mg 07/07/21 12:43 Albuterol 2.5 Mg/3 Ml Nebu IH Q4HRT PRN Shortness Of Breath Amlodipine Besylate 2.5 mg 07/08/21 10:00 07/14/21 09:56 Amlodipine 5 Mg Tab PO 2.5 mg QDAY WATSON Administration Aspirin 81 mg 07/09/21 10:00 07/14/21 09:56 Aspirin Ec 81 Mg Tab PO 81 mg QDAY WATSON Administration Atorvastatin Calcium 20 mg 07/07/21 22:00 07/14/21 21:33 Atorvastatin 20 Mg Tab PO 20 mg QHS WATSON Administration Dextrose 0 ml 07/07/21 19:51 Dextrose 10% *Hypoglycemia IV PRN PRN Hypoglycemia Famotidine 20 mg 07/08/21 10:00 07/14/21 09:59 Famotidine 20 Mg Tab PO 20 mg QDAY WATSON Administration Fluoxetine HCl 20 mg 07/08/21 10:00 07/14/21 10:01 Fluoxetine 20 Mg Cap PO 20 mg QDAY WATSON Administration Heparin Sodium (Porcine) 5,000 unit 07/09/21 14:30 07/15/21 06:44 Heparin 5,000 Unit/1 Ml Vial SUB-Q 5,000 unit Q8HR WATSON Administration Hydralazine HCl 50 mg 07/07/21 22:00 07/15/21 06:43 Hydralazine 25 Mg Tab PO 50 mg Q8HR WATSON Administration Hydromorphone HCl 0.5 mg 07/07/21 12:43 07/12/21 22:27 Hydromorphone 1 Mg/1 Ml Inj IV 0.5 mg Q23H PRN Administration Pain , Severe (7-10) Insulin Human Lispro 0 unit 02/02/22 00:00 07/15/21 07:42 Insulin Lispro 100 Unit/Ml SUB-Q Not Given Q6HR [facility] [place] Protocol Metoprolol Tartrate 25 mg 07/08/21 22:00 07/14/21 21:33 Metoprolol Tartrate 25 Mg Tab PO 25 mg BID WATSON Administration Ondansetron HCl 4 mg 07/07/21 12:43 Ondansetron 4 Mg/2 Ml Inj IV Q8H PRN Nausea And Vomiting Oxycodone/Acetaminophen 1 tab 07/07/21 12:43 Oxycodone /Acetaminophen 5-325mg Tab PO Q16H PRN Pain, Moderate (4-6) Pregabalin 100 mg 07/07/21 22:00 07/14/21 21:32 Pregabalin 50 Mg Cap PO 100 mg TID WATSON Administration Quetiapine Fumarate 800 mg 07/08/21 18:00 07/14/21 17:12 Quetiapine 200 Mg Tab PO 800 mg QPM WATSON Administration Sodium Bicarbonate 1,300 mg 07/11/21 16:00 07/14/21 21:31 Sodium Bicarbonate 650 Mg Tab PO 1,300 mg BID WATSON Administration Sodium Chloride 10 ml 07/07/21 22:00 07/14/21 21:34 Sodium Chloride 0.9% 10 Ml Flush Syringe IV 10 ml BID WATSON Administration Sodium Chloride 10 ml 07/07/21 12:43 07/11/21 11:41 Sodium Chloride 0.9% 10 Ml Flush Syringe IV 10 ml PRN PRN Administration LINE FLUSH
[2021-07-15] MEDS: SODIUM BICARBONATE 650 MG TAB PO SCH (10:36)
[2021-07-15] MEDS: amLODIPine 5 MG TAB PO SCH (10:36)
[2021-07-15] MEDS: FLUoxetine 20 MG CAP PO SCH (10:36)
[2021-07-15] MEDS: METOPROLOL TARTRATE 25 MG TAB PO SCH (10:37)
[2021-07-15] MEDS: ASPIRIN EC 81 MG TAB PO SCH (10:37)
[2021-07-15] MEDS: FAMOTIDINE 20 MG TAB PO SCH (10:37)
[2021-07-15] MEDS: PREGABALIN 50 MG CAP PO SCH ×2 (10:38→14:08)
--- NOTE | 2021-07-15 13:47 | Discharge Summary ---
Providers - Providers Date of Admission: 07/07/21 12:43 Date of discharge: 07/15/21 Attending physician: ROE SALMERON 07/07/21 17:08 Consult to Mental Health [CONS] Routine Reason For Exam: [facility] Psych admission at discharge from hospital 07/08/21 12:03 Physical Therapy Evaluation and Treat [CONS] Routine Comment: Reason For Exam: gait eval for possible snf notes. 07/09/21 09:02 Consult to Physician [CONS] Routine Comment: Consulting Provider: LYNSEY MALDONADO Physician Instructions: Reason For Exam: carlos on CKD Primary care physician: PRESS WORKER HELPER Hospitalization Condition: Fair Hospital course: 71 YO Female with HTN, DM, CKD, MDD, DARIEL, OA, Vascular Dementia, Cerebral Atherosclerosis presents to ED for evaluation for diminished cognition. Patient was found down sitting on the floor beside her bed by family members. EMS was notified and transported to ER. All lab and imaging studies reviewed. CXR no infiltrates. Patient found to have systemic inflammatory response, acute kidney injury, metabolic encephalopathy, and uncontrolled diabetes mellitus. Patient admitted to medical floor and initiated on coronavirus protocol due to increased risk of worsening symptoms. However Fallon PCR test was negative Patient was noted to have acute kidney injury due to acute tubular necrosis. Evaluated by chemical recovery operator. Patient's renal function gradually worsened initially however later started improving slowly, Patient was also evaluated by psych and managed her major depressive disorder, generalized anxiety disorder, vascular dementia and behavioral disturbances with acute psychosis, initially psychiatrist recommended inpatient [facility] psych placement however as the patient's symptoms improved did not recommend inpatient psych management, patient's medications were optimized, and psych cleared for discharge and follow-up as outpatient per schedule Patient twisted her ankle when she was getting off the bed, ankle x-ray did not show any fracture or dislocation, managed with pain medications and elevating the limb and recommended Femi bandage for ankle support. Today patient is comfortable, no new complaints, alert awake oriented, vital signs are stable Physical examination no new changes I called and discussed patient's spouse Ms. Alesia Escobar and discussed extensively patient's condition, patient reports, treatment and discharge planning She had some questions answered all of them Patient is stable at discharge Discharge diagnosis: --SIRS (systemic inflammatory response syndrome) Covid negative -- Acute kidney injury (CARLOS) with acute tubular necrosis (ATN) IV fluid resuscitation therapy, repeat BMP in a.m. to monitor serum creatinine. Creatinine Worsening 09/13/20=27/1.9 baseline 07/07/21=3.0-4.7-4.9 -4.0 today Nephrology following No indication for replacement therapy Input output monitoring Continue IV fluids, supportive care -- Uncontrolled diabetes mellitus Consistent carbohydrate diet, Accu-Chek, insulin protocol, IV fluid resuscitation therapy, hypoglycemia protocol. Insulin dosage adjusted, well controlled --Accelerated hypertension Continue current management, closely monitor blood pressures Adjust medications as needed -- Vascular dementia with behavioral disturbance/acute psychosis Verbal prompting, verbal redirection, benzodiazepine therapy as clinically yarely cated. Psych evaluated the patient, did not recommend inpatient psych management --COVID-19/fallon PCR test negative --Moderate protein calorie malnutrition; Nutrition supplements, supportive care Nutrition consult if needed -- DVT prophylaxis SCD to bilateral lower extremities while in bed Closely monitor patient and adjust management as needed Plan of care reviewed with the patient and her nurse Patient is cleared by consultants for discharge and follow-up in the office per schedule Discussed with patient's spouse Ms. Alesia Escobar over the phone the discharge planning and instructions, she verbalized understanding And agreed with the discharge plan Disposition: HOME HEALTH CARE SERVICE Final Discharge Diagnosis (Prints w/discharge instructions): SIRS. Acute kidney injury due to ATN. Uncontrolled diabetes mellitus/now moderate control. Accelerated hypertension/well controlled. Vascular dementia. Acute psychosis. Behavioral disturbances. COVID-19 negative status. Moderate protein calorie malnutrition Time spent for discharge: 40 minutes Exam - Constitutional Vitals: Temp Pulse Resp BP Pulse Ox 98.3 F 85 18 164/86 100 07/15/21 04:11 07/15/21 10:36 07/15/21 10:00 07/15/21 10:36 07/15/21 10:00 Plan Activity: advance as tolerated, fall precautions Diet: diabetic, renal Durable Medical Equipment Needed Upon Discharge: Walker-Rolling, Bedside Commode, other Additional Instructions: Fall precautions. If you have worsening symptoms contact MD or go to the nearest emergency room as needed. Advised to follow primary care physician within 1 week. Advised to follow private chemical recovery operator in 1 week. Advised to follow private psychiatrist in 5 to 7 days Follow up with: DORIS RAY MD [Primary Care Provider] - 3-5 Days JIM LEE MD [Staff Physician] - 7 Days ANYOKWU,OKAH J., MD [Staff Physician] - 7 Days Prescriptions: Hydralazine HCl 50 mg PO TID #90 Sodium Bicarbonate 1,300 mg PO BID #60 tablet traMADoL [Ultram 50 MG tab] 50 mg PO Q4HR PRN #14 tablet PRN Reason: Pain Ondansetron [Zofran ODT TAB] 4 mg PO Q8HR PRN #14 tab.rapdis PRN Reason: Nausea And Vomiting Other Discharge Orders: Bedside Commode- Elevator (Amb) Location: None Selected Walker-Rolling (Amb) Location: None Selected
[2021-07-15 14:08] VITALS: BP 162/75
[2021-07-15] MEDS: QUEtiapine 200 MG TAB PO SCH (17:07)
--- NOTE | 2021-07-15 17:53 | Event Note ---
Date: 07/15/21 I have called patient's spouse Ms. Alesia Escobar At [phone] and discussed in detail patient's condition treatment plan and discharge planning, tests and reports she had many questions and she wanted to talk to the psychiatrist . I informed patient's nurse of the patient's Ms. Dumas's request I informed Ms. Alesia Escobar that the patient will be discharged today. Verbalized understanding and agreed with the discharge planning
== END 2021-07-15 21:30 | disposition home or self-care (01) | DRG 682 ==
LOC: ED 08:38 → 3A 12:43
PROVIDERS: ADMIT Internal Medicine; ATTEND Internal Medicine
DX: N17.0 Acute kidney failure with tubular necrosis (principal); E11.10 Type 2 diabetes mellitus with ketoacidosis without coma; J18.9 Pneumonia, unspecified organism; G93.41 Metabolic encephalopathy; R65.10 Systemic inflammatory response syndrome (SIRS) of non-infectious origin without acute organ dysfunction; F01.51 Vascular dementia, unspecified severity, with behavioral disturbance; E44.0 Moderate protein-calorie malnutrition; E11.65 Type 2 diabetes mellitus with hyperglycemia; Z20.822 Contact with and (suspected) exposure to COVID-19; F41.9 Anxiety disorder, unspecified; I25.10 Atherosclerotic heart disease of native coronary artery without angina pectoris; N18.9 Chronic kidney disease, unspecified; E11.22 Type 2 diabetes mellitus with diabetic chronic kidney disease; I12.9 Hypertensive chronic kidney disease with stage 1 through stage 4 chronic kidney disease, or unspecified chronic kidney disease; Z83.3 Family history of diabetes mellitus; Z82.49 Family history of ischemic heart disease and other diseases of the circulatory system; I67.2 Cerebral atherosclerosis; Z68.32 Body mass index [BMI] 32.0-32.9, adult
CPT/HCPCS: 36415; 70450; 71045; 76770; 76857; 80048; 80053; 80307; 80320; 81001; 82140; 82550; 82553; 82805; 82962; 83615; 84145; 84156; 84439; 84443; 84484; 85025; 85379; 85610; 85730; 86140; 87086; 93005; 93010; 99406; G0378; J3490; Q0162; Q9967; G0480; J0360; J1170; J1644; J1815; J2060; J2270; J7030; J7070; U0003